=== PATIENT | male | born 1945 | race Caucasian/White ===

== ENCOUNTER 2019-10-16 11:14 | Inpatient (IN) | payer OTHER, MEDICAID ==
[~2019-10-16] VITALS: Ht 182.9 cm; Wt 65.0 kg
[2019-10-16 12:03] LABS: BASO # 0.1 x10^3/uL (0.0-0.2); BASO % 0 % (0-3); EOS # 0.1 x10^3/uL (0.0-0.7); EOS % 0 % (0-3); HEMATOCRIT 39.7 % (39.0-53.0); HEMOGLOBIN 13.8 g/dL (13.0-17.5); LYMPH # 1.2 x10^3/uL (1.0-4.8); LYMPH % 7 % (24-48); MEAN CORPUSCULAR HEMOGLOBIN 34 pg (25-35); MEAN CORPUSCULAR HGB CONC 35 g/dL (31-37); MEAN CORPUSCULAR VOLUME 98 fL (79-100); MONO # 1.6 x10^3/uL (0.0-1.1); MONO % 9 % (0-9); NEUT # 14.4 x10^3/uL (1.8-7.7); NEUT % 83 % (31-73); PLATELET COUNT 257 x10^3/uL (140-400); RED BLOOD COUNT 4.04 x10^6/uL (4.30-5.70); RED CELL DISTRIBUTION WIDTH 13.6 % (11.5-14.5); WHITE BLOOD COUNT 17.4 x10^3/uL (4.0-11.0)
[2019-10-16] MEDS ORDERED: ASPIRIN CHEWABLE 81 MG TABLET. PO ONE (12:15)
[2019-10-16 12:17] LABS: CALCIUM 8.5 mg/dL (8.5-10.1); CREATININE 1.1 mg/dL (0.7-1.3); GFR 65.8; POTASSIUM 3.5 mmol/L (3.5-5.1)
--- NOTE | 2019-10-16 12:17 | RAD ---
Chest PA and lateral 10/16/2019. Reason for exam: Chest pain. No consolidation or pleural fluid is seen. The left cardiac margin is slightly indistinct, and minimal lingular atelectasis or scarring could be present. Heart size is normal. IMPRESSION: No significant acute findings. Electronically signed by: Norbert Almanza Jr., MD (10/16/2019 12:14 PM) [id number]
[2019-10-16 12:22] LABS: ALBUMIN 3.5 g/dL (3.4-5.0); ALBUMIN/GLOBULIN RATIO 0.8 (1.0-1.7); MAGNESIUM 1.9 mg/dL (1.8-2.4); TOTAL BILIRUBIN 0.8 mg/dL (0.2-1.0); TOTAL PROTEIN 7.7 g/dL (6.4-8.2)
--- NOTE | 2019-10-16 12:29 | PHYS DOC ---
Past Medical History Smoking Status: Former Smoker (EYAD DOMINIQUE APRN) General Adult EDM: Chief Complaint: CHEST PAIN HPI: HPI: Patient is a 74 year old male who presents with complaints of approximately 2 hours ago a slow onset of epigastric pain that he describes as if he feels like he needs to belch, but cannot. Patient did not take anything at home prior to arrival for this discomfort. Patient rates this pressure feeling at a 7/10. Patient denies any radiation of this discomfort. Patient denies shortness of breath, diaphoresis, diarrhea. Patient states initially he felt nauseated but resolved prior to his ambulance transfer to the emergency department. Patient states he lives by himself in an assisted living facility called [facility]. Patient states he does not take any medications. Patient reports being a cigarette smoker of greater than 60 years, however he states he quit smoking July 2018. 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 Patient denies any recent fever chills or changes in vision. Patient denies any nasal congestion or sore throat. Patient denies any coughs or shortness of breath at this time. Patient denies any swelling of his extremities. Patient denies any abdominal pain or changes in his stool habits. Patient denies any problems urinating. Patient denies any back or joint pains or any skin rashes. Patient denies any weaknesses that have changed since his stroke recovery. Patient denies history of EtOH, is a nondrinker. Patient denies any swollen glands or any new depressions or anxieties. (EYAD DOMINIQUE APRN) Review of Systems: Review of Systems: Constitutional: Denies fever or chills. Eyes: Denies change in visual acuity. HENT: Denies nasal congestion or sore throat. Respiratory: Denies cough or shortness of breath. Cardiovascular: Complains of epigastric area chest pain without radiation, denies peripheral edema. GI: Complains of an initial onset of nausea that resolved prior to arrival. Denies abdominal pain, vomiting, bloody stools or diarrhea. : Denies dysuria. Musculoskeletal: Denies back pain or joint pain. Integument: Denies rash. Neurologic: Denies headache.denies focal weakness or sensory changes other than his left-sided weakness/deficits from a 14-year-old CVA.. Endocrine: Denies polyuria or polydipsia. Lymphatic: Denies swollen glands. Psychiatric: Denies depression or anxiety. (EYAD DOMINIQUE APRN) Heart Score: HEART Score for Chest Pain: HEART Score for Chest Pain Response (Comments) Value History Moderately Suspicious 1 ECG Nonspecific Repolarizatio 1 Age > 65 2 Risk Factors 1 or 2 Risk Factors 1 Troponin < Normal Limit 0 Total 5 Risk Factors: Risk Factors: DM, Current or recent (<one month) smoker, HTN, HLP, family history of CAD, obesity. Risk Scores: Score 0 - 3: 2.5% MACE over next 6 weeks - Discharge Home Score 4 - 6: 20.3% MACE over next 6 weeks - Admit for Clinical Observation Score 7 - 10: 72.7% MACE over next 6 weeks - Early Invasive Strategies (EYAD DOMINIQUE APRN) Family History: Family History: Patient denies any family history of medical problems to include heart disease. Patient states that his surviving family family members do smoke cigarettes. (EYAD DOMINIQUE APRN) Current Medications: Current Medications Medications (Trade) Dose Ordered Sig/Alexandra Start Time Stop Time Status Last Admin Dose Admin Aspirin (Aspirin Chewable) 324 mg 1X ONCE 10/16/19 12:15 10/16/19 12:16 (EYAD DOMINIQUE APRN) Allergies: Allergies: Allergies Coded Allergies Type Severity Reaction Last Updated Verified No Known Drug Allergies 10/16/19 No (EYAD DOMINIQUE APRN) Physical Exam: PE: Constitutional: Well developed, well nourished, no acute distress, non-toxic appearance. HENT: Normocephalic, atraumatic, bilateral external ears normal, oropharynx moist, no oral exudates, nose normal. Eyes: PERRLA, EOMI, conjunctiva normal, no discharge. Pupils 4 mm Neck: Normal range of motion, no tenderness, supple, no stridor. Cardiovascular:Heart rate regular rhythm, no murmur heart sounds S1-S2 no abnormalities noted per auscultation. Lungs & Thorax: Bilateral breath sounds clear to auscultation all lung riggs, no adventitious lung sounds noted per auscultation. Abdomen: Bowel sounds normal all 4 quadrants for auscultation, soft, no tenderness, no masses, no pulsatile masses. Skin: Warm, dry, no erythema, no rash. Back: No tenderness, no CVA tenderness. Extremities: No tenderness, no cyanosis, no clubbing, ROM intact right upper and lower extremities, left-sided upper and lower extremity weakness due to 14-year-old CVA residual deficits, no edema. Neurologic: Alert and oriented X 3, normal motor function, normal sensory function, no focal deficits noted. Psychologic: Affect normal, judgement normal, mood normal. (EYAD DOMINIQUE APRN) Current Patient Data: Labs: Laboratory Tests Test 10/16/19 11:28 White Blood Count 17.4 x10^3/uL (4.0-11.0) H Red Blood Count 4.04 x10^6/uL (4.30-5.70) L Hemoglobin 13.8 g/dL (13.0-17.5) Hematocrit 39.7 % (39.0-53.0) Mean Corpuscular Volume 98 fL (79-100) Mean Corpuscular Hemoglobin 34 pg (25-35) Mean Corpuscular Hemoglobin Concent 35 g/dL (31-37) Red Cell Distribution Width 13.6 % (11.5-14.5) Platelet Count 257 x10^3/uL (140-400) Neutrophils (%) (Auto) 83 % (31-73) H Lymphocytes (%) (Auto) 7 % (24-48) L Monocytes (%) (Auto) 9 % (0-9) Eosinophils (%) (Auto) 0 % (0-3) Basophils (%) (Auto) 0 % (0-3) Neutrophils # (Auto) 14.4 x10^3/uL (1.8-7.7) H Lymphocytes # (Auto) 1.2 x10^3/uL (1.0-4.8) Monocytes # (Auto) 1.6 x10^3/uL (0.0-1.1) H Eosinophils # (Auto) 0.1 x10^3/uL (0.0-0.7) Basophils # (Auto) 0.1 x10^3/uL (0.0-0.2) Platelet Estimate Pending Laboratory Tests 10/16/19 11:28 (EYAD DOMINIQUE APRN) EKG: EKG: EKG performed shortly after arrival at [address] Mcgraw. No STEMI noted. (EYAD DOMINIQUE APRN) Radiology/Procedures: Radiology/Procedures: PROCEDURE: CHEST PA & LATERAL Chest PA and lateral 10/16/2019. Reason for exam: Chest pain. No consolidation or pleural fluid is seen. The left cardiac margin is slightly indistinct, and minimal lingular atelectasis or scarring could be present. Heart size is normal. IMPRESSION: No significant acute findings. Electronically signed by: Fabien Almanza Jr., MD (10/16/2019 12:14 PM) [id number] DICTATED and SIGNED BY: FABIEN ALMANZA Jr, MD DATE: 10/16/19 1214 (EYAD DOMINIQUE APRN) Radiology/Procedures: PROCEDURE: ABDOMEN LTD ABDOMEN LTD History: Reason: RUQ pain, lipase of 29K. concern for gallstone pancreatitis / Spl. Instructions: / History: Comparison: None. Technique: Transabdominal ultrasound images are obtained of the right upper quadrant. Findings: Visualized pancreas is not well seen due to overlying bowel gas. Liver is normal in echogenicity. Right hepatic lobe measures 15 cm. Portal flow is hepatopedal. Mild gallbladder wall thickening measures 5 mm. No cholelithiasis. No pericholecystic fluid. Common bile duct not identified due to overlying structures. The right kidney measures 9.1 x 4.0 x 4.1 cm. No hydronephrosis. Normal caliber IVC. IMPRESSION: 1. Mild gallbladder wall thickening, may relate to inflammation. No cholelithiasis. If persistent clinical concern, HIDA scan can further evaluate for gallbladder function. 2. Common bile duct not well seen. Electronically signed by: Yasir Null DO (10/16/2019 4:25 PM) [facility] PROCEDURE: CHEST PA & LATERAL Chest PA and lateral 10/16/2019. Reason for exam: Chest pain. No consolidation or pleural fluid is seen. The left cardiac margin is slightly indistinct, and minimal lingular atelectasis or scarring could be present. Heart size is normal. IMPRESSION: No significant acute findings. Electronically signed by: Fabien Almanza Jr., MD (10/16/2019 12:14 PM) [id number] (EYAD MCGRAW DO) Course & Med Decision Making: Course & Med Decision Making Pertinent Labs and Imaging studies reviewed. (See chart for details) 74-year-old male patient arrives to the emergency department with epigastric discomfort started approximately 2 hours prior to arrival. Vital signs reviewed labs and imaging ordered. EKG was performed and reviewed by ED attending Dr. Mcgraw, no STEMI noted. Patient describes his discomfort as if he needs to belch but cannot. Patient reports this pain does not radiate. The pain was nonreproducible to palpation during exam. A GI cocktail was ordered due to his cardiac enzymes being negative, this medication resolved his chest discomfort. However the patient had a elevated white blood cell count with a left shift along with an elevated lipase. Patient does have a 14-year-old history of CVA with left-sided deficits. Patient lives in assisted living by himself at a facility called [facility]. Patient status reviewed with inpatient Dr. Enriquez, a sonogram of the abdomen to evaluate his pancreas and gallbladder was ordered, and patient was admitted inpatient to Dr. Enriquez to the [facility] floor. (EYAD DOMINIQUE APRN) Dragon Disclaimer: Dragon Disclaimer: This electronic medical record was generated, in whole or in part, using a voice recognition dictation system. (EYAD DOMINIQUE APRN) Departure Departure Impression: Primary Impression: Pancreatitis Qualified Codes: K85.90 - Acute pancreatitis without necrosis or infection, unspecified Additional Impressions: Chest pain Qualified Codes: R07.89 - Other chest pain Leukocytosis Qualified Codes: D72.829 - Elevated white blood cell count, unspecified Serum lipase elevation Disposition: ADMITTED INPATIENT Admitting Physician: VALERY (DR. Alfie CABRERA) (EYAD DOMINIQUE APRN) Condition: GUARDED Justicifation of Admission Dx: Justifications for Admission: Justification of Admission Dx: Yes Comments: LEUKOCYTOSIS, CHEST PAIN R/O ACS, ELEVATED SERUM LIPASE, PANCREATITIS. (EYAD DOMINIQUE APRN) Attending Signature Attending Signature I have reviewed the PA/ENVIRONMENTAL HEALTH OFFICER's note and plan of care. I was available for consultation as needed during the patient's visit in the emergency department. I agree with the clinical impression, plan, and disposition. (EYAD MCGRAW DO) EYAD DOMINIQUE APRN Oct 16, 2019 12:29 EYAD MCGRAW DO Oct 17, 2019 06:35
[2019-10-16] MEDS ORDERED: LIDO:MAALOX 1:1 20 ML SINGLE DOSE. SWSW ONE (13:00)
[2019-10-16 13:34] LABS: % BANDS 7 % (0-9); % LYMPHS 12 % (24-48); % MONOS 9 % (0-10); % SEGS 72 % (35-66); PLT ESTIMATE ADEQUATE (ADEQUATE)
[2019-10-16 13:41] LABS: BILIRUBIN,URINE NEGATIVE (NEG); CLARITY,URINE CLEAR; COLOR,URINE YELLOW; NITRITE,URINE NEGATIVE (NEG); PROTEIN,URINE NEGATIVE (NEG-TRACE)
[2019-10-16 13:51] LABS: SQUAMOUS EPITHELIAL CELL,UR FEW /LPF
[2019-10-16 13:53] LABS: BACTERIA,URINE 0 /HPF (0-FEW); RBC,URINE RARE /HPF (0-2); WBC,URINE 0 /HPF (0-4)
--- NOTE | 2019-10-16 14:36 | PDOC1 ---
History and Physical Date of Admission Date of Admission DATE: 10/16/19 TIME: 14:35 Identification/Chief Complaint Chief Complaint Epigastric abdominal pain Source Source: Patient History of Present Illness History of Present Illness Mr Parra is a 74yo M resident of [facility] w/ PMHx arthritis, HLD, CVA 2006 with left sided weakness who presents with complaints of epigastric abdominal pain starting 2 hours prior to ED visit. Rates this pressure feeling at a 7/10 as a "gas" feeling. Has nausea. Patient denies shortness of breath, diaphoresis, diarrhea. No chest pain. Patient denies any recent fever chills or changes in vision. Patient denies any nasal congestion or sore throat. No changes in his stool habits. Patient denies any problems urinating. Patient denies any back or joint pains or any skin rashes. Patient denies any weaknesses that have changed since his stroke recovery. Patient denies history of EtOH, is a nondrinker, quit smoking in 2019. WBC 17.4, Hb 13.8, Platelets 257, Na 140, K 3.5, BUN 12, Cr. 1.1, Troponin negative x 2, AST 436, ALT 352, and Lipase 29,956. EKG NSR, no stemi. CXR clear. RUQ US with gallbladder wall thickening. no visualization of CBD. Admitted for further treatment Past Medical History Cardiovascular: Hyperlipidemia CENTRAL NERVOUS SYSTEM: CVA Past Surgical History Past Surgical History: No pertinent history Family History Family History: Family History Unknown Social History Smoke: Quit ALCOHOL: none Drugs: None Current Medications Current Medications Current Medications Aspirin (Aspirin Chewable) 324 mg 1X ONCE PO Last administered on 10/16/19at 12:09; Start 10/16/19 at 12:15; Stop 10/16/19 at 12:16; Status DC Multi-Ingredient Mouthwash/Gargle (Gi Cocktail) 20 ml 1X ONCE SWSW Last administered on 10/16/19at 12:53; Start 10/16/19 at 13:00; Stop 10/16/19 at 13:01; Status DC Allergies Allergies: Coded Allergies: No Known Drug Allergies (Unverified , 10/16/19) ROS General: YES: Fatigue, Malaise; No: Chills, Night Sweats, Appetite, Other PSYCHOLOGICAL ROS: No: Anxiety, Behavioral Disorder, Concentration difficultie, Decreased libido, Depression, Disorientation, Hallucinations, Hostility, Irritablity, Memory difficulties, Mood Swings, Obsessive thoughts, Physical abuse, Sexual abuse, Sleep disturbances, Suicidal ideation, Other Eyes: No Blurry vision, No Decreased vision, No Double vision, No Dry eyes, No Excessive tearing, No Eye Pain, No Itchy Eyes, No Loss of vision, No Photophobia, No Scotomata, No Uses contacts, No Uses glasses, No Other HEENT: No: Heacaches, Visual Changes, Hearing change, Nasal congestion, Nasal d ischarge, Oral lesions, Sinus pain, Sore Throat, Epistaxis, Sneezing, Snoring, Tinnitus, Vertigo, Vocal changes, Other ALLERGY AND IMMUNOLOGY: No: Hives, Insect Bite Sensitivity, Itchy/Watery Eyes, Nasal Congestion, Post Nasal Drip, Seasonal Allergies, Other Hematological and Lymphatic: No: Bleeding Problems, Blood Clots, Blood Transfusions, Brusing, Night Sweats, Pallor, Swollen Lymph Nodes, Other ENDOCRINE: No: Breast Changes, Galactorrhea, Hair Pattern Changes, Hot Flashes, Malaise/lethargy, Mood Swings, Palpitations, Polydipsia/polyuria, Skin Changes, Temperature Intolerance, Unexpected Weight Changes, Other Breast: No New/Changing Breast Lumps, No Nipple changes, No Nipple discharge, No Other Respiratory: No: Cough, Hemoptysis, Orthopnea, Pleuritic Pain, Shortness of song ath, SOB with excertion, Sputum Changes, Stridor, Tachypnea, Wheezing, Other Cardiovascular: No Chest Pain, No Palpitations, No Orthopnea, No Paroxysmal Noc. Dyspnea, No Edema, No Lt Headedness, No Other Gastrointestinal: Yes Nausea, Yes Abdominal Pain; No Vomiting, No Diarrhea, No Constipation, No Melena, No Hematochezia, No Other Genitourinary: No Dysuria, No Frequency, No Incontinence, No Hematuria, No Retention, No Discharge, No Urgency, No Pain, No Flank Pain, No Other, No , No , No , No , No , No , No Musculoskeletal: Yes Gait Disturbance; No Joint Pain, No Joint Stiffness, No Joint Swelling, No Muscle Pain, No Muscular Weakness, No Pain In:, No Swelling In:, No Other Neurological: No Behavorial Changes, No Bowel/Bladder ControlChng, No Confusion, No Dizziness, No Gait Disturbance, No Headaches, No Impaired Coord/balance, No Memory Loss, No Numbness/Tingling, No Seizures, No Speech Problems, No Tremors, No Visual Changes, No Weakness, No Other Skin: No Dry Skin, No Eczema, No Hair Changes, No Lumps, No Mole Changes, No Mottling, No Nail Changes, No Pruritus, No Rash, No Skin Lesion Changes, No Other, No Acne Physical Exam General: Alert, Oriented X3, Cooperative, moderate distress HEENT: Atraumatic, PERRLA, EOMI, Mucous membr. moist/pink Lungs: Clear to auscultation, Normal air movement Heart: S1S2, RRR, no thrills, no rubs, no gallops, no murmurs Abdomen: Normal bowel sounds, Soft, No hepatosplenomegaly, No masses, Other (epigastric abdominal pain) Rectal Exam: not examined Extremities: No clubbing, No cyanosis, No edema, Normal pulses, No tenderness/swelling Skin: No rashes, No breakdown, No significant lesion Neuro: Normal speech, Normal tone, Cranial nerves 3-12 NL, Reflexes 2+, Other (left sided weakness) Psych/Mental Status: Mental status NL, Mood NL Vitals Vitals Vital Signs Date Time Temp Pulse Resp B/P (MAP) Pulse Ox O2 Delivery O2 Flow Rate FiO2 10/16/19 11:19 98.8 104 21 146/68 (94) 95 Room Air 98.8 Labs Labs Laboratory Tests Test 10/16/19 11:28 10/16/19 13:20 White Blood Count 17.4 x10^3/uL (4.0-11.0) Red Blood Count 4.04 x10^6/uL (4.30-5.70) Hemoglobin 13.8 g/dL (13.0-17.5) Hematocrit 39.7 % (39.0-53.0) Mean Corpuscular Volume 98 fL (79-100) Mean Corpuscular Hemoglobin 34 pg (25-35) Mean Corpuscular Hemoglobin Concent 35 g/dL (31-37) Red Cell Distribution Width 13.6 % (11.5-14.5) Platelet Count 257 x10^3/uL (140-400) Neutrophils (%) (Auto) 83 % (31-73) Lymphocytes (%) (Auto) 7 % (24-48) Monocytes (%) (Auto) 9 % (0-9) Eosinophils (%) (Auto) 0 % (0-3) Basophils (%) (Auto) 0 % (0-3) Neutrophils # (Auto) 14.4 x10^3/uL (1.8-7.7) Lymphocytes # (Auto) 1.2 x10^3/uL (1.0-4.8) Monocytes # (Auto) 1.6 x10^3/uL (0.0-1.1) Eosinophils # (Auto) 0.1 x10^3/uL (0.0-0.7) Basophils # (Auto) 0.1 x10^3/uL (0.0-0.2) Segmented Neutrophils % 72 % (35-66) Band Neutrophils % 7 % (0-9) Lymphocytes % 12 % (24-48) Monocytes % 9 % (0-10) Platelet Estimate Adequate (ADEQUATE) Activated Partial Thromboplast Time 21 SEC (24-38) Sodium Level 140 mmol/L (136-145) Potassium Level 3.5 mmol/L (3.5-5.1) Chloride Level 103 mmol/L (98-107) Carbon Dioxide Level 28 mmol/L (21-32) Anion Gap 9 (6-14) Blood Urea Nitrogen 12 mg/dL (8-26) Creatinine 1.1 mg/dL (0.7-1.3) Estimated GFR (Cockcroft-Gault) 65.8 BUN/Creatinine Ratio 11 (6-20) Glucose Level 121 mg/dL (70-99) Calcium Level 8.5 mg/dL (8.5-10.1) Magnesium Level 1.9 mg/dL (1.8-2.4) Total Bilirubin 0.8 mg/dL (0.2-1.0) Aspartate Amino Transf (AST/SGOT) 436 U/L (15-37) Alanine Aminotransferase (ALT/SGPT) 352 U/L (16-63) Alkaline Phosphatase 96 U/L (46-116) Creatine Kinase 60 U/L (39-308) Creatine Kinase MB (Mass) 0.9 ng/mL (0.0-3.6) Creatine Kinase MB Relative Index 1.5 % (0-4) Troponin I Quantitative < 0.017 ng/mL (0.000-0.055) BI-Sbs-C-Type Natriuretic Peptide 44 pg/mL (0-124) Total Protein 7.7 g/dL (6.4-8.2) Albumin 3.5 g/dL (3.4-5.0) Albumin/Globulin Ratio 0.8 (1.0-1.7) Lipase 37504 U/L (73-393) Urine Collection Type Unknown Urine Color Yellow Urine Clarity Clear Urine pH 7.0 (<5.0-8.0) Urine Specific [place] 1.015 (1.000-1.030) Urine Protein Negative mg/dL (NEG-TRACE) Urine Glucose (UA) Negative mg/dL (NEG) Urine Ketones (Stick) Negative mg/dL (NEG) Urine Blood Negative (NEG) Urine Nitrite Negative (NEG) Urine Bilirubin Negative (NEG) Urine Urobilinogen Dipstick 1.0 mg/dL (0.2 mg/dL) Urine Leukocyte Esterase Negative (NEG) Urine RBC Rare /HPF (0-2) Urine WBC 0 /HPF (0-4) Urine Squamous Epithelial Cells Few /LPF Urine Bacteria 0 /HPF (0-FEW) Urine Mucus Mod /LPF Laboratory Tests Test 10/16/19 11:28 10/16/19 13:20 White Blood Count 17.4 x10^3/uL (4.0-11.0) Red Blood Count 4.04 x10^6/uL (4.30-5.70) Hemoglobin 13.8 g/dL (13.0-17.5) Hematocrit 39.7 % (39.0-53.0) Mean Corpuscular Volume 98 fL (79-100) Mean Corpuscular Hemoglobin 34 pg (25-35) Mean Corpuscular Hemoglobin Concent 35 g/dL (31-37) Red Cell Distribution Width 13.6 % (11.5-14.5) Platelet Count 257 x10^3/uL (140-400) Neutrophils (%) (Auto) 83 % (31-73) Lymphocytes (%) (Auto) 7 % (24-48) Monocytes (%) (Auto) 9 % (0-9) Eosinophils (%) (Auto) 0 % (0-3) Basophils (%) (Auto) 0 % (0-3) Neutrophils # (Auto) 14.4 x10^3/uL (1.8-7.7) Lymphocytes # (Auto) 1.2 x10^3/uL (1.0-4.8) Monocytes # (Auto) 1.6 x10^3/uL (0.0-1.1) Eosinophils # (Auto) 0.1 x10^3/uL (0.0-0.7) Basophils # (Auto) 0.1 x10^3/uL (0.0-0.2) Segmented Neutrophils % 72 % (35-66) Band Neutrophils % 7 % (0-9) Lymphocytes % 12 % (24-48) Monocytes % 9 % (0-10) Platelet Estimate Adequate (ADEQUATE) Activated Partial Thromboplast Time 21 SEC (24-38) Sodium Level 140 mmol/L (136-145) Potassium Level 3.5 mmol/L (3.5-5.1) Chloride Level 103 mmol/L (98-107) Carbon Dioxide Level 28 mmol/L (21-32) Anion Gap 9 (6-14) Blood Urea Nitrogen 12 mg/dL (8-26) Creatinine 1.1 mg/dL (0.7-1.3) Estimated GFR (Cockcroft-Gault) 65.8 BUN/Creatinine Ratio 11 (6-20) Glucose Level 121 mg/dL (70-99) Calcium Level 8.5 mg/dL (8.5-10.1) Magnesium Level 1.9 mg/dL (1.8-2.4) Total Bilirubin 0.8 mg/dL (0.2-1.0) Aspartate Amino Transf (AST/SGOT) 436 U/L (15-37) Alanine Aminotransferase (ALT/SGPT) 352 U/L (16-63) Alkaline Phosphatase 96 U/L (46-116) Creatine Kinase 60 U/L (39-308) Creatine Kinase MB (Mass) 0.9 ng/mL (0.0-3.6) Creatine Kinase MB Relative Index 1.5 % (0-4) Troponin I Quantitative < 0.017 ng/mL (0.000-0.055) OL-Mdk-T-Type Natriuretic Peptide 44 pg/mL (0-124) Total Protein 7.7 g/dL (6.4-8.2) Albumin 3.5 g/dL (3.4-5.0) Albumin/Globulin Ratio 0.8 (1.0-1.7) Lipase 41343 U/L (73-393) Urine Collection Type Unknown Urine Color Yellow Urine Clarity Clear Urine pH 7.0 (<5.0-8.0) Urine Specific [place] 1.015 (1.000-1.030) Urine Protein Negative mg/dL (NEG-TRACE) Urine Glucose (UA) Negative mg/dL (NEG) Urine Ketones (Stick) Negative mg/dL (NEG) Urine Blood Negative (NEG) Urine Nitrite Negative (NEG) Urine Bilirubin Negative (NEG) Urine Urobilinogen Dipstick 1.0 mg/dL (0.2 mg/dL) Urine Leukocyte Esterase Negative (NEG) Urine RBC Rare /HPF (0-2) Urine WBC 0 /HPF (0-4) Urine Squamous Epithelial Cells Few /LPF Urine Bacteria 0 /HPF (0-FEW) Urine Mucus Mod /LPF Images Images CXR: No consolidation or pleural fluid is seen. The left cardiac margin is slightly indistinct, and minimal lingular atelectasis or scarring could be present. Heart size is normal. IMPRESSION: No significant acute findings. RUQ US: Visualized pancreas is not well seen due to overlying bowel gas. Liver is normal in echogenicity. Right hepatic lobe measures 15 cm. Portal flow is hepatopedal. Mild gallbladder wall thickening measures 5 mm. No cholelithiasis. No pericholecystic fluid. Common bile duct not identified due to overlying structures. The right kidney measures 9.1 x 4.0 x 4.1 cm. No hydronephrosis. Normal caliber IVC. IMPRESSION: 1. Mild gallbladder wall thickening, may relate to inflammation. No cholelithiasis. If persistent clinical concern, HIDA scan can further evaluate for gallbladder function. 2. Common bile duct not well seen. VTE Prophylaxis Ordered VTE Prophylaxis Devices: No VTE Pharmacological Prophylaxi: Yes Assessment/Plan Assessment/Plan A/P: Acute pancreatitis - almost certainly gallstone pancreatitis, will check triglycerides. no meds, no ETOH use. NPO, consult surgery and GI Epigastric abdominal pain - 2/2 above, cholecystitis may also be present. 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 - cont ASA, statin HLD - cont statin Transaminitis - likely 2/2 above, will trend LFTs Sepsis - likely 2/2 cholecystitis - will start empiric zosyn FEN - NPO PPX - lovenox DNR/DNI Dispo - inpatient for 2 midnights Justicifation of Admission Dx: Justifications for Admission: Justification of Admission Dx: Yes TIRSO CABRERA MD Oct 16, 2019 14:36
--- NOTE | 2019-10-16 16:28 | RAD ---
ABDOMEN LTD History: Reason: RUQ pain, lipase of 29K. concern for gallstone pancreatitis / Spl. Instructions: / History: Comparison: None. Technique: Transabdominal ultrasound images are obtained of the right upper quadrant. Findings: Visualized pancreas is not well seen due to overlying bowel gas. Liver is normal in echogenicity. Right hepatic lobe measures 15 cm. Portal flow is hepatopedal. Mild gallbladder wall thickening measures 5 mm. No cholelithiasis. No pericholecystic fluid. Common bile duct not identified due to overlying structures. The right kidney measures 9.1 x 4.0 x 4.1 cm. No hydronephrosis. Normal caliber IVC. IMPRESSION: 1. Mild gallbladder wall thickening, may relate to inflammation. No cholelithiasis. If persistent clinical concern, HIDA scan can further evaluate for gallbladder function. 2. Common bile duct not well seen. Electronically signed by: Yasir Null DO (10/16/2019 4:25 PM) [facility]
--- NOTE | 2019-10-16 18:33 | NUR ---
pt admitted to room 412 from ER. oriented to room and call light. pt up SBA w/ cane to bathroom.
[2019-10-16] MEDS ORDERED: ACETAMINOPHEN 650 MG SUPP.RECT. PR PRN (18:45)
[2019-10-16] MEDS ORDERED: ONDANSETRON PF 4 MG/2 ML VIAL. IV PRN (18:45)
[2019-10-16] MEDS ORDERED: ACETAMINOPHEN 325 MG TABLET. PO PRN (18:45)
[2019-10-16 19:00] VITALS: BP 148/69
[2019-10-16] MEDS: POTASSIUM CHLORIDE 10MEQ 100 ML IV SCH ×2 (20:18→21:33)
[2019-10-16] MEDS: POTASSIUM CL 20MEQ D5-0.45NACL 1,000 ML IV SCH (20:21)
[2019-10-16] MEDS ORDERED: MAGNESIUM SULFATE 1GM 100 ML IV ONE (21:30)
[2019-10-16] MEDS: ENOXAPARIN 40 MG/0.4 ML SYRINGE. SQ SCH (21:34)
[2019-10-16 23:00] VITALS: BP 148/72
[2019-10-16] MEDS: PIPERACILLIN/TAZOBACTAM 3.375 GM in IV NORMAL SALINE 50ML 50 ML IV SCH (23:55)
[2019-10-17 03:00] VITALS: BP 161/79
[2019-10-17] MEDS: POTASSIUM CL 20MEQ D5-0.45NACL 1,000 ML IV SCH ×2 (05:30→17:43)
[2019-10-17] MEDS: PIPERACILLIN/TAZOBACTAM 3.375 GM in IV NORMAL SALINE 50ML 50 ML IV SCH ×4 (05:47→23:59)
[2019-10-17 06:08] LABS: CHOLESTEROL/HDL RATIO 2.4
[2019-10-17 07:00] VITALS: BP 142/68
[2019-10-17] MEDS ORDERED: IOHEXOL 240 MG/ML 50ML VIAL. PO ONE (07:15)
[2019-10-17] MEDS ORDERED: CONTRAST GIVEN. MC PRN (07:15)
[2019-10-17] MEDS ORDERED: IOHEXOL 300 MG/ML 100ML VIAL. IV ONE (07:15)
[2019-10-17 08:39] LABS: ALBUMIN 3.3 g/dL (3.4-5.0); DIRECT BILIRUBIN 0.3 mg/dL (0.0-0.2); TOTAL BILIRUBIN 0.8 mg/dL (0.2-1.0); TOTAL PROTEIN 7.5 g/dL (6.4-8.2)
--- NOTE | 2019-10-17 09:18 | RAD ---
CT abdomen pelvis with contrast dated 10/17/2019. No comparison available. CLINICAL INDICATION: Abdominal pain. Pancreatitis. TECHNIQUE: Contiguous axial imaging of the abdomen and pelvis performed following the intravenous administration of 75 cc Isovue-370. One or more of the following individualized dose reduction techniques were utilized for this examination: 1. Automated exposure control 2. Adjustment of the mA and/or kV according to patient size 3. Use of iterative reconstruction technique. FINDINGS: Limited images of lung bases show patchy and linear opacity in the lower lobes, likely scar or atelectasis. Heart size is within normal limits. No pleural or pericardial effusion. There is circumferential wall thickening of the distal thoracic esophagus. Liver is of diffuse low density, compatible with fatty infiltration. No apparent mass. There is possible mild gallbladder wall thickening. No calcific stone. The biliary tree normal in caliber. No apparent intraductal filling defect. There is mild inflammatory stranding around the pancreas with trace amount of fluid along the retroperitoneal reflections. No circumscribed fluid collection to suggest pseudocyst. No apparent gland necrosis. Peripancreatic vasculature is patent. Mild to moderate narrowing of the celiac artery origin due to calcific plaquing. There is also moderate grade narrowing of the bilateral renal artery origin. Portal vein and SMV are patent. Adrenal glands and kidneys are unremarkable. No hydronephrosis. Spleen is normal in size. Partially opacified GI tract normal in caliber and contour. No focal bowel wall thickening. No inflammatory stranding in the mesentery. The appendix is normal in caliber. No ascites or lymphadenopathy. Images of pelvis show mildly distended urinary bladder. Mild diffuse bladder wall thickening. There is a 2 mm calcific density at the right UVJ on image 76. No hydroureter. Prostate gland is upper limits of normal in size. No free fluid or pelvic lymphadenopathy. Moderate size left inguinal hernia containing fat. There is also a suspected small inguinal hernia on the right. Bone windows show no acute findings. Mild multilevel spondylosis. IMPRESSION: 1. Findings consistent with acute pancreatitis. No evidence of gland necrosis or pseudocyst at this time. 2. Mild fatty infiltration of the liver with suspected mild gallbladder wall thickening. No apparent biliary ductal dilatation or choledocholithiasis. 3. Distended urinary bladder with mild diffuse bladder wall thickening, nonspecific. Consider acute or chronic cystitis. There is also a small calcific density near the right UVJ without evidence of right-sided hydronephrosis which could represent a small nonobstructing UVJ calculus or a nonspecific bladder wall calcification. 4. Bilateral inguinal hernia, left greater than right. Electronically signed by: Paco Milian MD (10/17/2019 9:15 AM) [id number]
--- NOTE | 2019-10-17 09:52 | PDOC ---
PROGRESS NOTES Chief Complaint Chief Complaint A/P: Acute pancreatitis - almost certainly gallstone pancreatitis, normal triglycerides. no meds, no ETOH use. NPO, consult surgery and GI Epigastric abdominal pain - 2/2 above, cholecystitis may also be present. 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 - cont ASA, statin HLD - cont statin Transaminitis - likely 2/2 above, will trend LFTs Sepsis - likely 2/2 cholecystitis - will start empiric zosyn Mild gallbladder wall thickening, no apparent biliary ductal dilatation or choledocholithiasis Distended urinary bladder with mild diffuse bladder wall thickening Right UVJ with small nonobstructing UVJ calculus or a nonspecific bladder wall calcification FEN - NPO PPX - lovenox DNR/DNI Dispo - inpatient for 2 midnights History of Present Illness History of Present Illness Mr Parra is a 74yo M resident of [facility] w/ PMHx arthritis, HLD, CVA 2006 with left sided weakness who presents with complaints of epigastric abdominal pain starting 2 hours prior to ED visit. Rates this pressure feeling at a 7/10 as a "gas" feeling. Has nausea. Patient denies shortness of breath, diaphoresis, diarrhea. No chest pain. Patient denies any recent fever chills or changes in vision. Patient denies any nasal congestion or sore throat. No changes in his stool habits. Patient denies any problems urinating. Patient denies any back or joint pains or any skin rashes. Patient denies any weaknesses that have changed since his stroke recovery. Patient denies history of EtOH, is a nondrinker, quit smoking in 2019. WBC 17.4, Hb 13.8, Platelets 257, Na 140, K 3.5, BUN 12, Cr. 1.1, Troponin negative x 2, AST 436, ALT 352, and Lipase 29,956. EKG NSR, no stemi. CXR clear. RUQ US with gallbladder wall thickening. no visualization of CBD. Admitted for further treatment. CT abdomen showed acute pancreatitis, suspected mild gallbladder wall thickening, no apparent biliary ductal dilatation or choledocholithiasis and distended urinary bladder with mild diffuse bladder wall thickening, right UVJ without evidence of right-sided hydronephrosis which could represent a small nonobstructing UVJ calculus or a nonspecific bladder wall calcification. Lipase improved to 4667. Afebrile. Still with diffuse abdominal pain and decreased appetite. Vitals Vitals Vital Signs Date Time Temp Pulse Resp B/P (MAP) Pulse Ox O2 Delivery O2 Flow Rate FiO2 10/17/19 07:00 97.7 88 18 142/68 (92) 92 Room Air 97.7 Physical Exam General: Alert, Oriented X3, Cooperative, moderate distress Abdomen: Normal bowel sounds, Soft, No hepatosplenomegaly, No masses, Other (epigastric abdominal pain) Extremities: No clubbing, No cyanosis, No edema, Normal pulses, No tenderness/swelling Skin: No rashes, No breakdown, No significant lesion Labs LABS Laboratory Tests Test 10/16/19 11:28 10/16/19 13:20 10/16/19 17:05 10/16/19 20:00 White Blood Count 17.4 x10^3/uL (4.0-11.0) Red Blood Count 4.04 x10^6/uL (4.30-5.70) Hemoglobin 13.8 g/dL (13.0-17.5) Hematocrit 39.7 % (39.0-53.0) Mean Corpuscular Volume 98 fL (79-100) Mean Corpuscular Hemoglobin 34 pg (25-35) Mean Corpuscular Hemoglobin Concent 35 g/dL (31-37) Red Cell Distribution Width 13.6 % (11.5-14.5) Platelet Count 257 x10^3/uL (140-400) Neutrophils (%) (Auto) 83 % (31-73) Lymphocytes (%) (Auto) 7 % (24-48) Monocytes (%) (Auto) 9 % (0-9) Eosinophils (%) (Auto) 0 % (0-3) Basophils (%) (Auto) 0 % (0-3) Neutrophils # (Auto) 14.4 x10^3/uL (1.8-7.7) Lymphocytes # (Auto) 1.2 x10^3/uL (1.0-4.8) Monocytes # (Auto) 1.6 x10^3/uL (0.0-1.1) Eosinophils # (Auto) 0.1 x10^3/uL (0.0-0.7) Basophils # (Auto) 0.1 x10^3/uL (0.0-0.2) Segmented Neutrophils % 72 % (35-66) Band Neutrophils % 7 % (0-9) Lymphocytes % 12 % (24-48) Monocytes % 9 % (0-10) Platelet Estimate Adequate (ADEQUATE) Activated Partial Thromboplast Time 21 SEC (24-38) Sodium Level 140 mmol/L (136-145) Potassium Level 3.5 mmol/L (3.5-5.1) Chloride Level 103 mmol/L (98-107) Carbon Dioxide Level 28 mmol/L (21-32) Anion Gap 9 (6-14) Blood Urea Nitrogen 12 mg/dL (8-26) Creatinine 1.1 mg/dL (0.7-1.3) Estimated GFR (Cockcroft-Gault) 65.8 BUN/Creatinine Ratio 11 (6-20) Glucose Level 121 mg/dL (70-99) Calcium Level 8.5 mg/dL (8.5-10.1) Magnesium Level 1.9 mg/dL (1.8-2.4) Total Bilirubin 0.8 mg/dL (0.2-1.0) Aspartate Amino Transf (AST/SGOT) 436 U/L (15-37) Alanine Aminotransferase (ALT/SGPT) 352 U/L (16-63) Alkaline Phosphatase 96 U/L (46-116) Creatine Kinase 60 U/L (39-308) Creatine Kinase MB (Mass) 0.9 ng/mL (0.0-3.6) Creatine Kinase MB Relative Index 1.5 % (0-4) Troponin I Quantitative < 0.017 ng/mL (0.000-0.055) < 0.017 ng/mL (0.000-0.055) < 0.017 ng/mL (0.000-0.055) AR-Jmr-S-Type Natriuretic Peptide 44 pg/mL (0-124) Total Protein 7.7 g/dL (6.4-8.2) Albumin 3.5 g/dL (3.4-5.0) Albumin/Globulin Ratio 0.8 (1.0-1.7) Lipase 04641 U/L (73-393) Urine Collection Type Unknown Urine Color Yellow Urine Clarity Clear Urine pH 7.0 (<5.0-8.0) Urine Specific [place] 1.015 (1.000-1.030) Urine Protein Negative mg/dL (NEG-TRACE) Urine Glucose (UA) Negative mg/dL (NEG) Urine Ketones (Stick) Negative mg/dL (NEG) Urine Blood Negative (NEG) Urine Nitrite Negative (NEG) Urine Bilirubin Negative (NEG) Urine Urobilinogen Dipstick 1.0 mg/dL (0.2 mg/dL) Urine Leukocyte Esterase Negative (NEG) Urine RBC Rare /HPF (0-2) Urine WBC 0 /HPF (0-4) Urine Squamous Epithelial Cells Few /LPF Urine Bacteria 0 /HPF (0-FEW) Urine Mucus Mod /LPF Test 10/17/19 04:00 Total Bilirubin 0.8 mg/dL (0.2-1.0) Direct Bilirubin 0.3 mg/dL (0.0-0.2) Aspartate Amino Transf (AST/SGOT) 190 U/L (15-37) Alanine Aminotransferase (ALT/SGPT) 296 U/L (16-63) Alkaline Phosphatase 83 U/L (46-116) Total Protein 7.5 g/dL (6.4-8.2) Albumin 3.3 g/dL (3.4-5.0) Triglycerides Level 41 mg/dL (0-150) Cholesterol Level 174 mg/dL (0-200) LDL Cholesterol, Calculated 93 mg/dL (0-100) VLDL Cholesterol, Calculated 8 mg/dL (0-40) Non-HDL Cholesterol Calculated 101 mg/dL (0-129) HDL Cholesterol 73 mg/dL (40-60) Cholesterol/HDL Ratio 2.4 Lipase 4667 U/L (73-393) Assessment and Plan Assessmemt and Plan Problems Medical Problems: (1) Chest pain Status: Acute (2) Leukocytosis Status: Acute (3) Pancreatitis Status: Acute (4) Serum lipase elevation Status: Acute Comment Review of Relevant I have reviewed the following items sarah (where applicable) has been applied. Labs Laboratory Tests Test 10/16/19 11:28 10/16/19 13:20 10/16/19 17:05 10/16/19 20:00 White Blood Count 17.4 x10^3/uL (4.0-11.0) Red Blood Count 4.04 x10^6/uL (4.30-5.70) Hemoglobin 13.8 g/dL (13.0-17.5) Hematocrit 39.7 % (39.0-53.0) Mean Corpuscular Volume 98 fL (79-100) Mean Corpuscular Hemoglobin 34 pg (25-35) Mean Corpuscular Hemoglobin Concent 35 g/dL (31-37) Red Cell Distribution Width 13.6 % (11.5-14.5) Platelet Count 257 x10^3/uL (140-400) Neutrophils (%) (Auto) 83 % (31-73) Lymphocytes (%) (Auto) 7 % (24-48) Monocytes (%) (Auto) 9 % (0-9) Eosinophils (%) (Auto) 0 % (0-3) Basophils (%) (Auto) 0 % (0-3) Neutrophils # (Auto) 14.4 x10^3/uL (1.8-7.7) Lymphocytes # (Auto) 1.2 x10^3/uL (1.0-4.8) Monocytes # (Auto) 1.6 x10^3/uL (0.0-1.1) Eosinophils # (Auto) 0.1 x10^3/uL (0.0-0.7) Basophils # (Auto) 0.1 x10^3/uL (0.0-0.2) Segmented Neutrophils % 72 % (35-66) Band Neutrophils % 7 % (0-9) Lymphocytes % 12 % (24-48) Monocytes % 9 % (0-10) Platelet Estimate Adequate (ADEQUATE) Activated Partial Thromboplast Time 21 SEC (24-38) Sodium Level 140 mmol/L (136-145) Potassium Level 3.5 mmol/L (3.5-5.1) Chloride Level 103 mmol/L (98-107) Carbon Dioxide Level 28 mmol/L (21-32) Anion Gap 9 (6-14) Blood Urea Nitrogen 12 mg/dL (8-26) Creatinine 1.1 mg/dL (0.7-1.3) Estimated GFR (Cockcroft-Gault) 65.8 BUN/Creatinine Ratio 11 (6-20) Glucose Level 121 mg/dL (70-99) Calcium Level 8.5 mg/dL (8.5-10.1) Magnesium Level 1.9 mg/dL (1.8-2.4) Total Bilirubin 0.8 mg/dL (0.2-1.0) Aspartate Amino Transf (AST/SGOT) 436 U/L (15-37) Alanine Aminotransferase (ALT/SGPT) 352 U/L (16-63) Alkaline Phosphatase 96 U/L (46-116) Creatine Kinase 60 U/L (39-308) Creatine Kinase MB (Mass) 0.9 ng/mL (0.0-3.6) Creatine Kinase MB Relative Index 1.5 % (0-4) Troponin I Quantitative < 0.017 ng/mL (0.000-0.055) < 0.017 ng/mL (0.000-0.055) < 0.017 ng/mL (0.000-0.055) VD-Zti-S-Type Natriuretic Peptide 44 pg/mL (0-124) Total Protein 7.7 g/dL (6.4-8.2) Albumin 3.5 g/dL (3.4-5.0) Albumin/Globulin Ratio 0.8 (1.0-1.7) Lipase 82305 U/L (73-393) Urine Collection Type Unknown Urine Color Yellow Urine Clarity Clear Urine pH 7.0 (<5.0-8.0) Urine Specific [place] 1.015 (1.000-1.030) Urine Protein Negative mg/dL (NEG-TRACE) Urine Glucose (UA) Negative mg/dL (NEG) Urine Ketones (Stick) Negative mg/dL (NEG) Urine Blood Negative (NEG) Urine Nitrite Negative (NEG) Urine Bilirubin Negative (NEG) Urine Urobilinogen Dipstick 1.0 mg/dL (0.2 mg/dL) Urine Leukocyte Esterase Negative (NEG) Urine RBC Rare /HPF (0-2) Urine WBC 0 /HPF (0-4) Urine Squamous Epithelial Cells Few /LPF Urine Bacteria 0 /HPF (0-FEW) Urine Mucus Mod /LPF Test 10/17/19 04:00 Total Bilirubin 0.8 mg/dL (0.2-1.0) Direct Bilirubin 0.3 mg/dL (0.0-0.2) Aspartate Amino Transf (AST/SGOT) 190 U/L (15-37) Alanine Aminotransferase (ALT/SGPT) 296 U/L (16-63) Alkaline Phosphatase 83 U/L (46-116) Total Protein 7.5 g/dL (6.4-8.2) Albumin 3.3 g/dL (3.4-5.0) Triglycerides Level 41 mg/dL (0-150) Cholesterol Level 174 mg/dL (0-200) LDL Cholesterol, Calculated 93 mg/dL (0-100) VLDL Cholesterol, Calculated 8 mg/dL (0-40) Non-HDL Cholesterol Calculated 101 mg/dL (0-129) HDL Cholesterol 73 mg/dL (40-60) Cholesterol/HDL Ratio 2.4 Lipase 4667 U/L (73-393) Laboratory Tests Test 10/16/19 11:28 10/16/19 13:20 10/16/19 17:05 10/16/19 20:00 White Blood Count 17.4 x10^3/uL (4.0-11.0) Red Blood Count 4.04 x10^6/uL (4.30-5.70) Hemoglobin 13.8 g/dL (13.0-17.5) Hematocrit 39.7 % (39.0-53.0) Mean Corpuscular Volume 98 fL (79-100) Mean Corpuscular Hemoglobin 34 pg (25-35) Mean Corpuscular Hemoglobin Concent 35 g/dL (31-37) Red Cell Distribution Width 13.6 % (11.5-14.5) Platelet Count 257 x10^3/uL (140-400) Neutrophils (%) (Auto) 83 % (31-73) Lymphocytes (%) (Auto) 7 % (24-48) Monocytes (%) (Auto) 9 % (0-9) Eosinophils (%) (Auto) 0 % (0-3) Basophils (%) (Auto) 0 % (0-3) Neutrophils # (Auto) 14.4 x10^3/uL (1.8-7.7) Lymphocytes # (Auto) 1.2 x10^3/uL (1.0-4.8) Monocytes # (Auto) 1.6 x10^3/uL (0.0-1.1) Eosinophils # (Auto) 0.1 x10^3/uL (0.0-0.7) Basophils # (Auto) 0.1 x10^3/uL (0.0-0.2) Segmented Neutrophils % 72 % (35-66) Band Neutrophils % 7 % (0-9) Lymphocytes % 12 % (24-48) Monocytes % 9 % (0-10) Platelet Estimate Adequate (ADEQUATE) Activated Partial Thromboplast Time 21 SEC (24-38) Sodium Level 140 mmol/L (136-145) Potassium Level 3.5 mmol/L (3.5-5.1) Chloride Level 103 mmol/L (98-107) Carbon Dioxide Level 28 mmol/L (21-32) Anion Gap 9 (6-14) Blood Urea Nitrogen 12 mg/dL (8-26) Creatinine 1.1 mg/dL (0.7-1.3) Estimated GFR (Cockcroft-Gault) 65.8 BUN/Creatinine Ratio 11 (6-20) Glucose Level 121 mg/dL (70-99) Calcium Level 8.5 mg/dL (8.5-10.1) Magnesium Level 1.9 mg/dL (1.8-2.4) Total Bilirubin 0.8 mg/dL (0.2-1.0) Aspartate Amino Transf (AST/SGOT) 436 U/L (15-37) Alanine Aminotransferase (ALT/SGPT) 352 U/L (16-63) Alkaline Phosphatase 96 U/L (46-116) Creatine Kinase 60 U/L (39-308) Creatine Kinase MB (Mass) 0.9 ng/mL (0.0-3.6) Creatine Kinase MB Relative Index 1.5 % (0-4) Troponin I Quantitative < 0.017 ng/mL (0.000-0.055) < 0.017 ng/mL (0.000-0.055) < 0.017 ng/mL (0.000-0.055) AP-Afk-M-Type Natriuretic Peptide 44 pg/mL (0-124) Total Protein 7.7 g/dL (6.4-8.2) Albumin 3.5 g/dL (3.4-5.0) Albumin/Globulin Ratio 0.8 (1.0-1.7) Lipase 03486 U/L (73-393) Urine Collection Type Unknown Urine Color Yellow Urine Clarity Clear Urine pH 7.0 (<5.0-8.0) Urine Specific [place] 1.015 (1.000-1.030) Urine Protein Negative mg/dL (NEG-TRACE) Urine Glucose (UA) Negative mg/dL (NEG) Urine Ketones (Stick) Negative mg/dL (NEG) Urine Blood Negative (NEG) Urine Nitrite Negative (NEG) Urine Bilirubin Negative (NEG) Urine Urobilinogen Dipstick 1.0 mg/dL (0.2 mg/dL) Urine Leukocyte Esterase Negative (NEG) Urine RBC Rare /HPF (0-2) Urine WBC 0 /HPF (0-4) Urine Squamous Epithelial Cells Few /LPF Urine Bacteria 0 /HPF (0-FEW) Urine Mucus Mod /LPF Test 10/17/19 04:00 Total Bilirubin 0.8 mg/dL (0.2-1.0) Direct Bilirubin 0.3 mg/dL (0.0-0.2) Aspartate Amino Transf (AST/SGOT) 190 U/L (15-37) Alanine Aminotransferase (ALT/SGPT) 296 U/L (16-63) Alkaline Phosphatase 83 U/L (46-116) Total Protein 7.5 g/dL (6.4-8.2) Albumin 3.3 g/dL (3.4-5.0) Triglycerides Level 41 mg/dL (0-150) Cholesterol Level 174 mg/dL (0-200) LDL Cholesterol, Calculated 93 mg/dL (0-100) VLDL Cholesterol, Calculated 8 mg/dL (0-40) Non-HDL Cholesterol Calculated 101 mg/dL (0-129) HDL Cholesterol 73 mg/dL (40-60) Cholesterol/HDL Ratio 2.4 Lipase 4667 U/L (73-393) Medications Current Medications Aspirin (Aspirin Chewable) 324 mg 1X ONCE PO Last administered on 10/16/19at 12:09; Start 10/16/19 at 12:15; Stop 10/16/19 at 12:16; Status DC Multi-Ingredient Mouthwash/Gargle (Gi Cocktail) 20 ml 1X ONCE SWSW Last administered on 10/16/19at 12:53; Start 10/16/19 at 13:00; Stop 10/16/19 at 13:01; Status DC Magnesium Sulfate/ Dextrose 100 ml @ 100 mls/hr 1X ONCE IV Last administered on 10/16/19at 21:35; Start 10/16/19 at 21:30; Stop 10/16/19 at 22:29; Status DC Potassium Chloride/Water 100 ml @ 100 mls/hr Q1H IV Last administered on 10/16/19at 21:33; Start 10/16/19 at 19:30; Stop 10/16/19 at 21:29; Status DC Potassium Chloride/Dextrose/ Sod Cl 1,000 ml @ 100 mls/hr Q10H IV Last administered on 10/16/19at 20:21; Start 10/16/19 at 19:30 Ondansetron HCl (Zofran) 4 mg PRN Q4HRS PRN IV NAUSEA/VOMITING; Start 10/16/19 at 18:45 Acetaminophen (Tylenol) 650 mg PRN Q4HRS PRN PO TEMP OVER 100.4F OR MILD PAIN; Start 10/16/19 at 18:45 Acetaminophen (Tylenol Supp) 650 mg PRN Q4HRS PRN CO TEMP OVER 100.4F OR MILD PAIN; Start 10/16/19 at 18:45 Enoxaparin Sodium (Lovenox 40mg Syringe) 40 mg Q24H SQ Last administered on 10/16/19at 21:34; Start 10/16/19 at 21:00 Piperacillin Sod/ Tazobactam Sod 3.375 gm/Sodium Chloride 50 ml @ 100 mls/hr Q 6HRS IV Last administered on 10/17/19at 05:47; Start 10/17/19 at 00:00 Iohexol (Omnipaque 300 Mg/ml) 75 ml 1X ONCE IV Last administered on 10/17/19at 07:15; Start 10/17/19 at 07:15; Stop 10/17/19 at 07:16; Status DC Iohexol (Omnipaque 240 Mg/ml) 50 ml 1X ONCE PO Last administered on 10/17/19at 07:33; Start 10/17/19 at 07:15; Stop 10/17/19 at 07:16; Status DC Info (CONTRAST GIVEN -- Rx MONITORING) 1 each PRN DAILY PRN MC SEE COMMENTS; Start 10/17/19 at 07:15; Stop 10/19/19 at 07:14 Vitals/I & O Vital Sign - Last 24 Hours 10/16/19 10/16/19 10/16/19 10/16/19 11:19 13:00 14:00 15:00 Temp 98.8 98.8 Pulse 104 94 96 100 Resp 21 B/P (MAP) 146/68 (94) 151/68 (95) 160/104 (122) 152/72 (98) Pulse Ox 95 92 92 92 O2 Delivery Room Air Room Air Room Air Room Air 10/16/19 10/16/19 10/16/19 10/16/19 16:00 17:00 19:00 20:00 Temp 98.9 98.9 Pulse 92 94 89 Resp 18 B/P (MAP) 137/68 (91) 152/70 (97) 148/69 (95) Pulse Ox 93 92 94 O2 Delivery Room Air Room Air Room Air Room Air 10/16/19 10/17/19 10/17/19 23:00 03:00 07:00 Temp 99.0 98.1 97.7 99.0 98.1 97.7 Pulse 91 89 88 Resp 18 18 18 B/P (MAP) 148/72 (97) 161/79 (106) 142/68 (92) Pulse Ox 91 92 92 O2 Delivery Room Air Room Air Room Air Intake and Output 10/16/19 10/16/19 10/17/19 15:00 23:00 07:00 Intake Total 200 ml Balance 200 ml Justicifation of Admission Dx: Justifications for Admission: Justification of Admission Dx: Yes TIRSO CABRERA MD Oct 17, 2019 09:52
[2019-10-17] MEDS ORDERED: TAMSULOSIN 0.4 MG CAP.ER.24H. PO ONE (10:00)
[2019-10-17 11:00] VITALS: BP 159/78
--- NOTE | 2019-10-17 12:01 | PDOC2 ---
CONSULT Date of Consult Date of Consult DATE: 10/17/19 TIME: 11:57 Reason for Consult Reason for Consult: pancreatitis Referring Physician Referring Physician: Dr. Moise Identification/Chief Complaint Chief Complaint epigastric abd pain Source Source: Chart review, Patient History of Present Illness Reason for Visit: 74 yo M with c/o epigastric abd pain prompting ER visit and admission. Pt reports feels better. No previous episodes. Still having some pain. Past Medical History Cardiovascular: Hyperlipidemia CENTRAL NERVOUS SYSTEM: CVA Past Surgical History Past Surgical History: No pertinent history Family History Family History: Family History Unknown Social History Quit ALCOHOL: none Drugs: None Current Problem List Problem List Problems Medical Problems: (1) Chest pain Status: Acute (2) Leukocytosis Status: Acute (3) Pancreatitis Status: Acute (4) Serum lipase elevation Status: Acute Current Medications Current Medications Current Medications Aspirin (Aspirin Chewable) 324 mg 1X ONCE PO Last administered on 10/16/19at 12:09; Start 10/16/19 at 12:15; Stop 10/16/19 at 12:16; Status DC Multi-Ingredient Mouthwash/Gargle (Gi Cocktail) 20 ml 1X ONCE SWSW Last administered on 10/16/19at 12:53; Start 10/16/19 at 13:00; Stop 10/16/19 at 13:01; Status DC Magnesium Sulfate/ Dextrose 100 ml @ 100 mls/hr 1X ONCE IV Last administered on 10/16/19at 21:35; Start 10/16/19 at 21:30; Stop 10/16/19 at 22:29; Status DC Potassium Chloride/Water 100 ml @ 100 mls/hr Q1H IV Last administered on 10/16/19at 21:33; Start 10/16/19 at 19:30; Stop 10/16/19 at 21:29; Status DC Potassium Chloride/Dextrose/ Sod Cl 1,000 ml @ 100 mls/hr Q10H IV Last administered on 10/16/19at 20:21; Start 10/16/19 at 19:30 Ondansetron HCl (Zofran) 4 mg PRN Q4HRS PRN IV NAUSEA/VOMITING; Start 10/16/19 at 18:45 Acetaminophen (Tylenol) 650 mg PRN Q4HRS PRN PO TEMP OVER 100.4F OR MILD PAIN; Start 10/16/19 at 18:45 Acetaminophen (Tylenol Supp) 650 mg PRN Q4HRS PRN MO TEMP OVER 100.4F OR MILD PAIN; Start 10/16/19 at 18:45 Enoxaparin Sodium (Lovenox 40mg Syringe) 40 mg Q24H SQ Last administered on 10/16/19at 21:34; Start 10/16/19 at 21:00 Piperacillin Sod/ Tazobactam Sod 3.375 gm/Sodium Chloride 50 ml @ 100 mls/hr Q6HRS IV Last administered on 10/17/19at 05:47; Start 10/17/19 at 00:00 Iohexol (Omnipaque 300 Mg/ml) 75 ml 1X ONCE IV Last administered on 10/17/19at 07:15; Start 10/17/19 at 07:15; Stop 10/17/19 at 07:16; Status DC Iohexol (Omnipaque 240 Mg/ml) 50 ml 1X ONCE PO Last administered on 10/17/19at 07:33; Start 10/17/19 at 07:15; Stop 10/17/19 at 07:16; Status DC Info (CONTRAST GIVEN -- Rx MONITORING) 1 each PRN DAILY PRN MC SEE COMMENTS; Start 10/17/19 at 07:15; Stop 10/19/19 at 07:14 Tamsulosin HCl (Flomax) 0.4 mg QHS PO ; Start 10/17/19 at 21:00 Tamsulosin HCl (Flomax) 0.4 mg 1X ONCE PO ; Start 10/17/19 at 10:00; Stop 10/17/19 at 10:01; Status DC Allergies Allergies: Coded Allergies: No Known Drug Allergies (Unverified , 10/16/19) ROS Gastrointestinal: Yes Abdominal Pain Physical Exam General: Alert, Oriented X3, Cooperative, No acute distress, Other (cachetic appearing) HEENT: Atraumatic, EOMI Lungs: Normal air movement Abdomen: Soft, Other (mild TTP epigastric) Extremities: No clubbing, No cyanosis Skin: No rashes, No breakdown Neuro: Normal speech, Sensation intact Psych/Mental Status: Mental status NL, Mood NL Vitals VITALS Vital Signs Date Time Temp Pulse Resp B/P (MAP) Pulse Ox O2 Delivery O2 Flow Rate FiO2 10/17/19 11:00 98.0 95 18 159/78 (105) 95 Room Air 98.0 Labs Labs Laboratory Tests Test 10/16/19 11:28 10/16/19 13:20 10/16/19 17:05 10/16/19 20:00 White Blood Count 17.4 x10^3/uL (4.0-11.0) Red Blood Count 4.04 x10^6/uL (4.30-5.70) Hemoglobin 13.8 g/dL (13.0-17.5) Hematocrit 39.7 % (39.0-53.0) Mean Corpuscular Volume 98 fL (79-100) Mean Corpuscular Hemoglobin 34 pg (25-35) Mean Corpuscular Hemoglobin Concent 35 g/dL (31-37) Red Cell Distribution Width 13.6 % (11.5-14.5) Platelet Count 257 x10^3/uL (140-400) Neutrophils (%) (Auto) 83 % (31-73) Lymphocytes (%) (Auto) 7 % (24-48) Monocytes (%) (Auto) 9 % (0-9) Eosinophils (%) (Auto) 0 % (0-3) Basophils (%) (Auto) 0 % (0-3) Neutrophils # (Auto) 14.4 x10^3/uL (1.8-7.7) Lymphocytes # (Auto) 1.2 x10^3/uL (1.0-4.8) Monocytes # (Auto) 1.6 x10^3/uL (0.0-1.1) Eosinophils # (Auto) 0.1 x10^3/uL (0.0-0.7) Basophils # (Auto) 0.1 x10^3/uL (0.0-0.2) Segmented Neutrophils % 72 % (35-66) Band Neutrophils % 7 % (0-9) Lymphocytes % 12 % (24-48) Monocytes % 9 % (0-10) Platelet Estimate Adequate (ADEQUATE) Activated Partial Thromboplast Time 21 SEC (24-38) Sodium Level 140 mmol/L (136-145) Potassium Level 3.5 mmol/L (3.5-5.1) Chloride Level 103 mmol/L (98-107) Carbon Dioxide Level 28 mmol/L (21-32) Anion Gap 9 (6-14) Blood Urea Nitrogen 12 mg/dL (8-26) Creatinine 1.1 mg/dL (0.7-1.3) Estimated GFR (Cockcroft-Gault) 65.8 BUN/Creatinine Ratio 11 (6-20) Glucose Level 121 mg/dL (70-99) Calcium Level 8.5 mg/dL (8.5-10.1) Magnesium Level 1.9 mg/dL (1.8-2.4) Total Bilirubin 0.8 mg/dL (0.2-1.0) Aspartate Amino Transf (AST/SGOT) 436 U/L (15-37) Alanine Aminotransferase (ALT/SGPT) 352 U/L (16-63) Alkaline Phosphatase 96 U/L (46-116) Creatine Kinase 60 U/L (39-308) Creatine Kinase MB (Mass) 0.9 ng/mL (0.0-3.6) Creatine Kinase MB Relative Index 1.5 % (0-4) Troponin I Quantitative < 0.017 ng/mL (0.000-0.055) < 0.017 ng/mL (0.000-0.055) < 0.017 ng/mL (0.000-0.055) [id number]-Type Natriuretic Peptide 44 pg/mL (0-124) Total Protein 7.7 g/dL (6.4-8.2) Albumin 3.5 g/dL (3.4-5.0) Albumin/Globulin Ratio 0.8 (1.0-1.7) Lipase 55696 U/L (73-393) Urine Collection Type Unknown Urine Color Yellow Urine Clarity Clear Urine pH 7.0 (<5.0-8.0) Urine Specific [place] 1.015 (1.000-1.030) Urine Protein Negative mg/dL (NEG-TRACE) Urine Glucose (UA) Negative mg/dL (NEG) Urine Ketones (Stick) Negative mg/dL (NEG) Urine Blood Negative (NEG) Urine Nitrite Negative (NEG) Urine Bilirubin Negative (NEG) Urine Urobilinogen Dipstick 1.0 mg/dL (0.2 mg/dL) Urine Leukocyte Esterase Negative (NEG) Urine RBC Rare /HPF (0-2) Urine WBC 0 /HPF (0-4) Urine Squamous Epithelial Cells Few /LPF Urine Bacteria 0 /HPF (0-FEW) Urine Mucus Mod /LPF Test 10/17/19 04:00 Total Bilirubin 0.8 mg/dL (0.2-1.0) Direct Bilirubin 0.3 mg/dL (0.0-0.2) Aspartate Amino Transf (AST/SGOT) 190 U/L (15-37) Alanine Aminotransferase (ALT/SGPT) 296 U/L (16-63) Alkaline Phosphatase 83 U/L (46-116) Total Protein 7.5 g/dL (6.4-8.2) Albumin 3.3 g/dL (3.4-5.0) Triglycerides Level 41 mg/dL (0-150) Cholesterol Level 174 mg/dL (0-200) LDL Cholesterol, Calculated 93 mg/dL (0-100) VLDL Cholesterol, Calculated 8 mg/dL (0-40) Non-HDL Cholesterol Calculated 101 mg/dL (0-129) HDL Cholesterol 73 mg/dL (40-60) Cholesterol/HDL Ratio 2.4 Lipase 4667 U/L (73-393) Laboratory Tests Test 10/16/19 13:20 10/16/19 17:05 10/16/19 20:00 10/17/19 04:00 Urine Collection Type Unknown Urine Color Yellow Urine Clarity Clear Urine pH 7.0 (<5.0-8.0) Urine Specific [place] 1.015 (1.000-1.030) Urine Protein Negative mg/dL (NEG-TRACE) Urine Glucose (UA) Negative mg/dL (NEG) Urine Ketones (Stick) Negative mg/dL (NEG) Urine Blood Negative (NEG) Urine Nitrite Negative (NEG) Urine Bilirubin Negative (NEG) Urine Urobilinogen Dipstick 1.0 mg/dL (0.2 mg/dL) Urine Leukocyte Esterase Negative (NEG) Urine RBC Rare /HPF (0-2) Urine WBC 0 /HPF (0-4) Urine Squamous Epithelial Cells Few /LPF Urine Bacteria 0 /HPF (0-FEW) Urine Mucus Mod /LPF Troponin I Quantitative < 0.017 ng/mL (0.000-0.055) < 0.017 ng/mL (0.000-0.055) Total Bilirubin 0.8 mg/dL (0.2-1.0) Direct Bilirubin 0.3 mg/dL (0.0-0.2) Aspartate Amino Transf (AST/SGOT) 190 U/L (15-37) Alanine Aminotransferase (ALT/SGPT) 296 U/L (16-63) Alkaline Phosphatase 83 U/L (46-116) Total Protein 7.5 g/dL (6.4-8.2) Albumin 3.3 g/dL (3.4-5.0) Triglycerides Level 41 mg/dL (0-150) Cholesterol Level 174 mg/dL (0-200) LDL Cholesterol, Calculated 93 mg/dL (0-100) VLDL Cholesterol, Calculated 8 mg/dL (0-40) Non-HDL Cholesterol Calculated 101 mg/dL (0-129) HDL Cholesterol 73 mg/dL (40-60) Cholesterol/HDL Ratio 2.4 Lipase 4667 U/L (73-393) Images Images CT with pancreatitis, esophageal thickening, no obvious gallstones Assessment/Plan Assessment/Plan pancreatitis, favor microlithiasis will ask GI to evaluate pancreatitis and esophageal thickening. eventual cholecystectomy pending resolution of pancreatitis Thanks for consult! JOEY GUTIERREZ MD Oct 17, 2019 12:01
--- NOTE | 2019-10-17 12:55 | PDOC2 ---
GI CONSULT Reason For Consult: Pancreatitis HPI: HPI: 74 y/o male presented to ER with upper abdominal pain. Subsequent evaluation disclosed elevated lipase c/w pancreatitis. Transaminasaes were also elevated, though AP and bilirubin were normal. LFT's and lipase have improved and he has only minimal pain currently. No gallstones on imaging. Did drink heavily for many years, but quit some time back--has no prior h/o pancreatitis. No necrosis on CT. Denies ever heartburn to any degree. No dysphagia, PUD, liver history. Currently not smoking or using any alcohol. Denies diarrhea, constipation, overt GI bleeding. No prior endoscopies. GIFH positive for esophageal cancer in father. PMH: PMH: HLP, right CVA. FH: Family History: Other (otherwise non-contributory) Social History: Smoke: Quit ALCOHOL: none (heavy in the remote past) Drugs: None ROS: GEN: Denies fevers, chills, sweats HEENT: Denies blurred vision, sore throat CV: Denies chest pain RESP: Denies shortness of air, cough GI: Per HPI : Denies hematuria, dysuria ENDO: Denies weight changes NEURO: Denies confusion, dizziness MSK: Denies weakness, joint pain/swelling SKIN: Denies jaundice, pruritus Vitals: Vitals: Vital Signs Date Time Temp Pulse Resp B/P (MAP) Pulse Ox O2 Delivery O2 Flow Rate FiO2 10/17/19 11:00 98.0 95 18 159/78 (105) 95 Room Air 98.0 Labs: Labs: Laboratory Tests Test 10/16/19 13:20 10/16/19 17:05 10/16/19 20:00 10/17/19 04:00 Urine Collection Type Unknown Urine Color Yellow Urine Clarity Clear Urine pH 7.0 (<5.0-8.0) Urine Specific [place] 1.015 (1.000-1.030) Urine Protein Negative mg/dL (NEG-TRACE) Urine Glucose (UA) Negative mg/dL (NEG) Urine Ketones (Stick) Negative mg/dL (NEG) Urine Blood Negative (NEG) Urine Nitrite Negative (NEG) Urine Bilirubin Negative (NEG) Urine Urobilinogen Dipstick 1.0 mg/dL (0.2 mg/dL) Urine Leukocyte Esterase Negative (NEG) Urine RBC Rare /HPF (0-2) Urine WBC 0 /HPF (0-4) Urine Squamous Epithelial Cells Few /LPF Urine Bacteria 0 /HPF (0-FEW) Urine Mucus Mod /LPF Troponin I Quantitative < 0.017 ng/mL (0.000-0.055) < 0.017 ng/mL (0.000-0.055) Total Bilirubin 0.8 mg/dL (0.2-1.0) Direct Bilirubin 0.3 mg/dL (0.0-0.2) Aspartate Amino Transf (AST/SGOT) 190 U/L (15-37) Alanine Aminotransferase (ALT/SGPT) 296 U/L (16-63) Alkaline Phosphatase 83 U/L (46-116) Total Protein 7.5 g/dL (6.4-8.2) Albumin 3.3 g/dL (3.4-5.0) Triglycerides Level 41 mg/dL (0-150) Cholesterol Level 174 mg/dL (0-200) LDL Cholesterol, Calculated 93 mg/dL (0-100) VLDL Cholesterol, Calculated 8 mg/dL (0-40) Non-HDL Cholesterol Calculated 101 mg/dL (0-129) HDL Cholesterol 73 mg/dL (40-60) Cholesterol/HDL Ratio 2.4 Lipase 4667 U/L (73-393) Allergies: Coded Allergies: No Known Drug Allergies (Unverified , 10/16/19) Medications: Current Medications Medications (Trade) Dose Ordered Sig/Alexandra Route PRN Reason Start Time Stop Time Status Last Admin Dose Admin Multi-Ingredient Mouthwash/Gargle (Gi Cocktail) 20 ml 1X ONCE SWSW 10/16/19 13:00 10/16/19 13:01 DC 10/16/19 12:53 Magnesium Sulfate/ Dextrose 100 ml @ 100 mls/hr 1X ONCE IV 10/16/19 21:30 10/16/19 22:29 DC 10/16/19 21:35 Potassium Chloride/Water 100 ml @ 100 mls/hr Q1H IV 10/16/19 19:30 10/16/19 21:29 DC 10/16/19 21:33 Potassium Chloride/Dextrose/ Sod Cl 1,000 ml @ 100 mls/hr Q10H IV 10/16/19 19:30 10/16/19 20:21 Enoxaparin Sodium (Lovenox 40mg Syringe) 40 mg Q24H SQ 10/16/19 21:00 10/16/19 21:34 Piperacillin Sod/ Tazobactam Sod 3.375 gm/Sodium Chloride 50 ml @ 100 mls/hr Q6HRS IV 10/17/19 00:00 10/17/19 12:00 Iohexol (Omnipaque 300 Mg/ml) 75 ml 1X ONCE IV 10/17/19 07:15 10/17/19 07:16 DC 10/17/19 07:15 Iohexol (Omnipaque 240 Mg/ml) 50 ml 1X ONCE PO 10/17/19 07:15 10/17/19 07:16 DC 10/17/19 07:33 Tamsulosin HCl (Flomax) 0.4 mg 1X ONCE PO 10/17/19 10:00 10/17/19 10:01 DC 10/17/19 12:00 Imaging: Imaging: CT reviewed. "Thickened esophagus" looks like hiatal hernia to me (and no symptoms). PE: GEN: NAD HEENT: Atraumatic, PERRLA LUNGS: CTAB HEART: RRR, no murmurs ABD: NABS, S/ND/mildly tender in epigastrium, no masses EXTREMITY: No edema SKIN: No rashes, no jaundice NEURO/PSYCH: A & O 3, left hemiparesis A/P: A/P: IMP: Pancreatitis. Numbers suggest biliary in origin though no stones seen. Agree microlithiasis possible. Remote alcohol abuse, but would not expect LFT's abnormal if alcohol the cause unless chronic pancreatitis and stricture of CBD secondary to this. Suspect hiatal hernia.\\ REC: Would pursue cholecystectomy. Don't feel EGD needed at this point. Could ultimately consider screening colonoscopy. Thanks. EYAD MESA MD Oct 17, 2019 12:55
[2019-10-17 15:00] VITALS: BP 149/78
[2019-10-17 19:00] VITALS: BP 132/60
[2019-10-17] MEDS: ENOXAPARIN 40 MG/0.4 ML SYRINGE. SQ SCH (20:39)
[2019-10-17] MEDS: TAMSULOSIN 0.4 MG CAP.ER.24H. PO SCH (20:39)
[2019-10-17 23:00] VITALS: BP 141/65
[2019-10-18] MEDS: POTASSIUM CL 20MEQ D5-0.45NACL 1,000 ML IV SCH ×3 (01:30→21:30)
[2019-10-18 03:00] VITALS: BP 125/56
[2019-10-18 05:14] LABS: BASO % 0 % (0-3); EOS % 0 % (0-3); HEMATOCRIT 36.5 % (39.0-53.0); HEMOGLOBIN 12.3 g/dL (13.0-17.5); LYMPH # 1.1 x10^3/uL (1.0-4.8); LYMPH % 8 % (24-48); MEAN CORPUSCULAR HEMOGLOBIN 33 pg (25-35); MEAN CORPUSCULAR HGB CONC 34 g/dL (31-37); MEAN CORPUSCULAR VOLUME 99 fL (79-100); MONO # 1.3 x10^3/uL (0.0-1.1); MONO % 9 % (0-9); NEUT # 11.1 x10^3/uL (1.8-7.7); NEUT % 82 % (31-73); PLATELET COUNT 206 x10^3/uL (140-400); RED BLOOD COUNT 3.69 x10^6/uL (4.30-5.70); RED CELL DISTRIBUTION WIDTH 13.8 % (11.5-14.5); WHITE BLOOD COUNT 13.4 x10^3/uL (4.0-11.0)
[2019-10-18] MEDS: PIPERACILLIN/TAZOBACTAM 3.375 GM in IV NORMAL SALINE 50ML 50 ML IV SCH ×3 (05:33→17:21)
[2019-10-18 05:58] LABS: ALBUMIN 2.8 g/dL (3.4-5.0); ALBUMIN/GLOBULIN RATIO 0.7 (1.0-1.7); CALCIUM 7.9 mg/dL (8.5-10.1); GFR 73.5; POTASSIUM 3.3 mmol/L (3.5-5.1); TOTAL BILIRUBIN 1.3 mg/dL (0.2-1.0); TOTAL PROTEIN 6.7 g/dL (6.4-8.2)
[2019-10-18 07:00] VITALS: BP 143/69
--- NOTE | 2019-10-18 08:27 | PDOC ---
PROGRESS NOTES Chief Complaint Chief Complaint IMPRESSION Acute pancreatitis - // gallstone pancreatitis, normal triglycerides. no meds, no ETOH use. NPO, consult surgery and GI Epigastric abdominal pain - 2/2 above, cholecystitis may also be present. 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 Underlying mass not excluded. FEN - NPO PPX - lovenox DNR/DNI Dispo - inpatient for 2 midnights gi consulted pursue cholecystectomy. Don't feel EGD needed at this point. Could consider screening colonoscopy. COVID-19 SCREEN 27 min pt exam, chart review, > 50% of time spent with exam, chart review, pt care coordination History of Present Illness History of Present Illness Mr Parra is a 74yo M resident of [facility] w/ PMHx arthritis, HLD, CVA 2006 with left sided weakness who presents with complaints of epigastric abdominal pain starting 2 hours prior to ED visit. Rates this pressure feeling at a 7/10 as a "gas" feeling. Has nausea. Patient denies shortness of breath, diaphoresis, diarrhea. No chest pain. Patient denies any recent fever chills or changes in vision. Patient denies any nasal congestion or sore throat. No changes in his stool habits. Patient denies any problems urinating. Patient denies any back or joint pains or any skin rashes. Patient denies any weaknesses that have changed since his stroke recovery. Patient denies history of EtOH, is a nondrinker, quit smoking in 2019. WBC 17.4, Hb 13.8, Platelets 257, Na 140, K 3.5, BUN 12, Cr. 1.1, Troponin negative x 2, AST 436, ALT 352, and Lipase 29,956. EKG NSR, no stemi. CXR clear. RUQ US with gallbladder wall thickening. no visualization of CBD. Admitted for further treatment. CT abdomen showed acute pancreatitis, suspected mild gallbladder wall thickening, no apparent biliary ductal dilatation or choledocholithiasis and distended urinary bladder with mild diffuse bladder wall thickening, right UVJ without evidence of right-sided hydronephrosis which could represent a small nonobstructing UVJ calculus or a nonspecific bladder wall calcification. Lipase improved to 4667. Afebrile. Still with diffuse abdominal pain and decreased appetite. Vitals Vitals Vital Signs Date Time Temp Pulse Resp B/P (MAP) Pulse Ox O2 Delivery O2 Flow Rate FiO2 10/18/19 03:00 99.5 89 18 125/56 (79) 93 Room Air 99.5 Physical Exam General: Alert, Oriented X3, Cooperative, No acute distress, Other (cachetic appearing) Abdomen: Soft, Other (mild TTP epigastric) Extremities: No clubbing, No cyanosis Skin: No rashes, No breakdown Labs LABS ADDENDUM Addendum: Circumferential wall thickening of the thoracic esophagus is nonspecific and could be related to acute or chronic esophagitis. Underlying mass not excluded. Correlate clinically. Electronically signed by: Paco iMlian MD (10/17/2019 10:20 AM) [id number] DICTATED AND SIGNED BY: PACO MILIAN MD DATE: 10/17/19 1020 CC: JOYCE GRIDER MD; JOEY GUTIERREZ MD; TIRSO CABRERA MD; PACO MESA MD ~ CT abdomen pelvis with contrast dated 10/17/2019. No comparison available. CLINICAL INDICATION: Abdominal pain. Pancreatitis. TECHNIQUE: Contiguous axial imaging of the abdomen and pelvis performed following the intravenous administration of 75 cc Isovue-370. One or more of the following individualized dose reduction techniques were utilized for this examination: 1. Automated exposure control 2. Adjustment of the mA and/or kV according to patient size 3. Use of iterative reconstruction technique. FINDINGS: Limited images of lung bases show patchy and linear opacity in the lower lobes, likely scar or atelectasis. Heart size is within normal limits. No pleural or pericardial effusion. There is circumferential wall thickening of the distal thoracic esophagus. Liver is of diffuse low density, compatible with fatty infiltration. No apparent mass. There is possible mild gallbladder wall thickening. No calcific stone. The biliary tree normal in caliber. No apparent intraductal filling defect. There is mild inflammatory stranding around the pancreas with trace amount of fluid along the retroperitoneal reflections. No circumscribed fluid collection to suggest pseudocyst. No apparent gland necrosis. Peripancreatic vasculature is patent. Mild to moderate narrowing of the celiac artery origin due to calcific plaquing. There is also moderate grade narrowing of the bilateral renal artery origin. Portal vein and SMV are patent. Adrenal glands and kidneys are unremarkable. No hydronephrosis. Spleen is normal in size. Partially opacified GI tract normal in caliber and contour. No focal bowel wall thickening. No inflammatory stranding in the mesentery. The appendix is normal in caliber. No ascites or lymphadenopathy. Images of pelvis show mildly distended urinary bladder. Mild diffuse bladder wall thickening. There is a 2 mm calcific density at the right UVJ on image 76. No hydroureter. Prostate gland is upper limits of normal in size. No free fluid or pelvic lymphadenopathy. Moderate size left inguinal hernia containing fat. There is also a suspected small inguinal hernia on the right. Bone windows show no acute findings. Mild multilevel spondylosis. IMPRESSION: 1. Findings consistent with acute pancreatitis. No evidence of gland necrosis or pseudocyst at this time. 2. Mild fatty infiltration of the liver with suspected mild gallbladder wall thickening. No apparent biliary ductal dilatation or choledocholithiasis. 3. Distended urinary bladder with mild diffuse bladder wall thickening, nonspecific. Consider acute or chronic cystitis. There is also a small calcific density near the right UVJ without evidence of right-sided hydronephrosis which could represent a small nonobstructing UVJ calculus or a nonspecific bladder wall calcification. 4. Bilateral inguinal hernia, left greater than right. Electronically signed by: Paco Milian MD (10/17/2019 9:15 AM) [id number] Laboratory Tests Test 10/18/19 03:10 White Blood Count 13.4 x10^3/uL (4.0-11.0) Red Blood Count 3.69 x10^6/uL (4.30-5.70) Hemoglobin 12.3 g/dL (13.0-17.5) Hematocrit 36.5 % (39.0-53.0) Mean Corpuscular Volume 99 fL (79-100) Mean Corpuscular Hemoglobin 33 pg (25-35) Mean Corpuscular Hemoglobin Concent 34 g/dL (31-37) Red Cell Distribution Width 13.8 % (11.5-14.5) Platelet Count 206 x10^3/uL (140-400) Neutrophils (%) (Auto) 82 % (31-73) Lymphocytes (%) (Auto) 8 % (24-48) Monocytes (%) (Auto) 9 % (0-9) Eosinophils (%) (Auto) 0 % (0-3) Basophils (%) (Auto) 0 % (0-3) Neutrophils # (Auto) 11.1 x10^3/uL (1.8-7.7) Lymphocytes # (Auto) 1.1 x10^3/uL (1.0-4.8) Monocytes # (Auto) 1.3 x10^3/uL (0.0-1.1) Eosinophils # (Auto) 0.0 x10^3/uL (0.0-0.7) Basophils # (Auto) 0.0 x10^3/uL (0.0-0.2) Sodium Level 136 mmol/L (136-145) Potassium Level 3.3 mmol/L (3.5-5.1) Chloride Level 101 mmol/L (98-107) Carbon Dioxide Level 25 mmol/L (21-32) Anion Gap 10 (6-14) Blood Urea Nitrogen 11 mg/dL (8-26) Creatinine 1.0 mg/dL (0.7-1.3) Estimated GFR (Cockcroft-Gault) 73.5 BUN/Creatinine Ratio 11 (6-20) Glucose Level 118 mg/dL (70-99) Calcium Level 7.9 mg/dL (8.5-10.1) Total Bilirubin 1.3 mg/dL (0.2-1.0) Aspartate Amino Transf (AST/SGOT) 52 U/L (15-37) Alanine Aminotransferase (ALT/SGPT) 151 U/L (16-63) Alkaline Phosphatase 80 U/L (46-116) Total Protein 6.7 g/dL (6.4-8.2) Albumin 2.8 g/dL (3.4-5.0) Albumin/Globulin Ratio 0.7 (1.0-1.7) Lipase 600 U/L (73-393) Assessment and Plan Assessmemt and Plan Problems Medical Problems: (1) Chest pain Status: Acute (2) Leukocytosis Status: Acute (3) Pancreatitis Status: Acute (4) Serum lipase elevation Status: Acute Comment Review of Relevant I have reviewed the following items sarah (where applicable) has been applied. Labs Laboratory Tests Test 10/16/19 11:28 10/16/19 13:20 10/16/19 17:05 10/16/19 20:00 White Blood Count 17.4 x10^3/uL (4.0-11.0) Red Blood Count 4.04 x10^6/uL (4.30-5.70) Hemoglobin 13.8 g/dL (13.0-17.5) Hematocrit 39.7 % (39.0-53.0) Mean Corpuscular Volume 98 fL (79-100) Mean Corpuscular Hemoglobin 34 pg (25-35) Mean Corpuscular Hemoglobin Concent 35 g/dL (31-37) Red Cell Distribution Width 13.6 % (11.5-14.5) Platelet Count 257 x10^3/uL (140-400) Neutrophils (%) (Auto) 83 % (31-73) Lymphocytes (%) (Auto) 7 % (24-48) Monocytes (%) (Auto) 9 % (0-9) Eosinophils (%) (Auto) 0 % (0-3) Basophils (%) (Auto) 0 % (0-3) Neutrophils # (Auto) 14.4 x10^3/uL (1.8-7.7) Lymphocytes # (Auto) 1.2 x10^3/uL (1.0-4.8) Monocytes # (Auto) 1.6 x10^3/uL (0.0-1.1) Eosinophils # (Auto) 0.1 x10^3/uL (0.0-0.7) Basophils # (Auto) 0.1 x10^3/uL (0.0-0.2) Segmented Neutrophils % 72 % (35-66) Band Neutrophils % 7 % (0-9) Lymphocytes % 12 % (24-48) Monocytes % 9 % (0-10) Platelet Estimate Adequate (ADEQUATE) Activated Partial Thromboplast Time 21 SEC (24-38) Sodium Level 140 mmol/L (136-145) Potassium Level 3.5 mmol/L (3.5-5.1) Chloride Level 103 mmol/L (98-107) Carbon Dioxide Level 28 mmol/L (21-32) Anion Gap 9 (6-14) Blood Urea Nitrogen 12 mg/dL (8-26) Creatinine 1.1 mg/dL (0.7-1.3) Estimated GFR (Cockcroft-Gault) 65.8 BUN/Creatinine Ratio 11 (6-20) Glucose Level 121 mg/dL (70-99) Calcium Level 8.5 mg/dL (8.5-10.1) Magnesium Level 1.9 mg/dL (1.8-2.4) Total Bilirubin 0.8 mg/dL (0.2-1.0) Aspartate Amino Transf (AST/SGOT) 436 U/L (15-37) Alanine Aminotransferase (ALT/SGPT) 352 U/L (16-63) Alkaline Phosphatase 96 U/L (46-116) Creatine Kinase 60 U/L (39-308) Creatine Kinase MB (Mass) 0.9 ng/mL (0.0-3.6) Creatine Kinase MB Relative Index 1.5 % (0-4) Troponin I Quantitative < 0.017 ng/mL (0.000-0.055) < 0.017 ng/mL (0.000-0.055) < 0.017 ng/mL (0.000-0.055) XQ-Isf-T-Type Natriuretic Peptide 44 pg/mL (0-124) Total Protein 7.7 g/dL (6.4-8.2) Albumin 3.5 g/dL (3.4-5.0) Albumin/Globulin Ratio 0.8 (1.0-1.7) Lipase 09944 U/L (73-393) Urine Collection Type Unknown Urine Color Yellow Urine Clarity Clear Urine pH 7.0 (<5.0-8.0) Urine Specific [place] 1.015 (1.000-1.030) Urine Protein Negative mg/dL (NEG-TRACE) Urine Glucose (UA) Negative mg/dL (NEG) Urine Ketones (Stick) Negative mg/dL (NEG) Urine Blood Negative (NEG) Urine Nitrite Negative (NEG) Urine Bilirubin Negative (NEG) Urine Urobilinogen Dipstick 1.0 mg/dL (0.2 mg/dL) Urine Leukocyte Esterase Negative (NEG) Urine RBC Rare /HPF (0-2) Urine WBC 0 /HPF (0-4) Urine Squamous Epithelial Cells Few /LPF Urine Bacteria 0 /HPF (0-FEW) Urine Mucus Mod /LPF Test 10/17/19 04:00 10/18/19 03:10 Total Bilirubin 0.8 mg/dL (0.2-1.0) 1.3 mg/dL (0.2-1.0) Direct Bilirubin 0.3 mg/dL (0.0-0.2) Aspartate Amino Transf (AST/SGOT) 190 U/L (15-37) 52 U/L (15-37) Alanine Aminotransferase (ALT/SGPT) 296 U/L (16-63) 151 U/L (16-63) Alkaline Phosphatase 83 U/L (46-116) 80 U/L (46-116) Total Protein 7.5 g/dL (6.4-8.2) 6.7 g/dL (6.4-8.2) Albumin 3.3 g/dL (3.4-5.0) 2.8 g/dL (3.4-5.0) Triglycerides Level 41 mg/dL (0-150) Cholesterol Level 174 mg/dL (0-200) LDL Cholesterol, Calculated 93 mg/dL (0-100) VLDL Cholesterol, Calculated 8 mg/dL (0-40) Non-HDL Cholesterol Calculated 101 mg/dL (0-129) HDL Cholesterol 73 mg/dL (40-60) Cholesterol/HDL Ratio 2.4 Lipase 4667 U/L (73-393) 600 U/L (73-393) White Blood Count 13.4 x10^3/uL (4.0-11.0) Red Blood Count 3.69 x10^6/uL (4.30-5.70) Hemoglobin 12.3 g/dL (13.0-17.5) Hematocrit 36.5 % (39.0-53.0) Mean Corpuscular Volume 99 fL (79-100) Mean Corpuscular Hemoglobin 33 pg (25-35) Mean Corpuscular Hemoglobin Concent 34 g/dL (31-37) Red Cell Distribution Width 13.8 % (11.5-14.5) Platelet Count 206 x10^3/uL (140-400) Neutrophils (%) (Auto) 82 % (31-73) Lymphocytes (%) (Auto) 8 % (24-48) Monocytes (%) (Auto) 9 % (0-9) Eosinophils (%) (Auto) 0 % (0-3) Basophils (%) (Auto) 0 % (0-3) Neutrophils # (Auto) 11.1 x10^3/uL (1.8-7.7) Lymphocytes # (Auto) 1.1 x10^3/uL (1.0-4.8) Monocytes # (Auto) 1.3 x10^3/uL (0.0-1.1) Eosinophils # (Auto) 0.0 x10^3/uL (0.0-0.7) Basophils # (Auto) 0.0 x10^3/uL (0.0-0.2) Sodium Level 136 mmol/L (136-145) Potassium Level 3.3 mmol/L (3.5-5.1) Chloride Level 101 mmol/L (98-107) Carbon Dioxide Level 25 mmol/L (21-32) Anion Gap 10 (6-14) Blood Urea Nitrogen 11 mg/dL (8-26) Creatinine 1.0 mg/dL (0.7-1.3) Estimated GFR (Cockcroft-Gault) 73.5 BUN/Creatinine Ratio 11 (6-20) Glucose Level 118 mg/dL (70-99) Calcium Level 7.9 mg/dL (8.5-10.1) Albumin/Globulin Ratio 0.7 (1.0-1.7) Laboratory Tests Test 10/18/19 03:10 White Blood Count 13.4 x10^3/uL (4.0-11.0) Red Blood Count 3.69 x10^6/uL (4.30-5.70) Hemoglobin 12.3 g/dL (13.0-17.5) Hematocrit 36.5 % (39.0-53.0) Mean Corpuscular Volume 99 fL (79-100) Mean Corpuscular Hemoglobin 33 pg (25-35) Mean Corpuscular Hemoglobin Concent 34 g/dL (31-37) Red Cell Distribution Width 13.8 % (11.5-14.5) Platelet Count 206 x10^3/uL (140-400) Neutrophils (%) (Auto) 82 % (31-73) Lymphocytes (%) (Auto) 8 % (24-48) Monocytes (%) (Auto) 9 % (0-9) Eosinophils (%) (Auto) 0 % (0-3) Basophils (%) (Auto) 0 % (0-3) Neutrophils # (Auto) 11.1 x10^3/uL (1.8-7.7) Lymphocytes # (Auto) 1.1 x10^3/uL (1.0-4.8) Monocytes # (Auto) 1.3 x10^3/uL (0.0-1.1) Eosinophils # (Auto) 0.0 x10^3/uL (0.0-0.7) Basophils # (Auto) 0.0 x10^3/uL (0.0-0.2) Sodium Level 136 mmol/L (136-145) Potassium Level 3.3 mmol/L (3.5-5.1) Chloride Level 101 mmol/L (98-107) Carbon Dioxide Level 25 mmol/L (21-32) Anion Gap 10 (6-14) Blood Urea Nitrogen 11 mg/dL (8-26) Creatinine 1.0 mg/dL (0.7-1.3) Estimated GFR (Cockcroft-Gault) 73.5 BUN/Creatinine Ratio 11 (6-20) Glucose Level 118 mg/dL (70-99) Calcium Level 7.9 mg/dL (8.5-10.1) Total Bilirubin 1.3 mg/dL (0.2-1.0) Aspartate Amino Transf (AST/SGOT) 52 U/L (15-37) Alanine Aminotransferase (ALT/SGPT) 151 U/L (16-63) Alkaline Phosphatase 80 U/L (46-116) Total Protein 6.7 g/dL (6.4-8.2) Albumin 2.8 g/dL (3.4-5.0) Albumin/Globulin Ratio 0.7 (1.0-1.7) Lipase 600 U/L (73-393) Microbiology 10/17/19 Blood Culture - Preliminary, Resulted NO GROWTH AFTER 1 DAY Medications Current Medications Aspirin (Aspirin Chewable) 324 mg 1X ONCE PO Last administered on 10/16/19at 12:09; Start 10/16/19 at 12:15; Stop 10/16/19 at 12:16; Status DC Multi-Ingredient Mouthwash/Gargle (Gi Cocktail) 20 ml 1X ONCE SWSW Last administered on 10/16/19at 12:53; Start 10/16/19 at 13:00; Stop 10/16/19 at 13:01; Status DC Magnesium Sulfate/ Dextrose 100 ml @ 100 mls/hr 1X ONCE IV Last administered on 10/16/19at 21:35; Start 10/16/19 at 21:30; Stop 10/16/19 at 22:29; Status DC Potassium Chloride/Water 100 ml @ 100 mls/hr Q1H IV Last administered on 10/16/19at 21:33; Start 10/16/19 at 19:30; Stop 10/16/19 at 21:29; Status DC Potassium Chloride/Dextrose/ Sod Cl 1,000 ml @ 100 mls/hr Q10H IV Last administered on 10/18/19at 01:30; Start 10/16/19 at 19:30 Ondansetron HCl (Zofran) 4 mg PRN Q4HRS PRN IV NAUSEA/VOMITING; Start 10/16/19 at 18:45 Acetaminophen (Tylenol) 650 mg PRN Q4HRS PRN PO TEMP OVER 100.4F OR MILD PAIN; Start 10/16/19 at 18:45 Acetaminophen (Tylenol Supp) 650 mg PRN Q4HRS PRN MO TEMP OVER 100.4F OR MILD PAIN; Start 10/16/19 at 18:45 Enoxaparin Sodium (Lovenox 40mg Syringe) 40 mg Q24H SQ Last administered on 10/17/19at 20:39; Start 10/16/19 at 21:00 Piperacillin Sod/ Tazobactam Sod 3.375 gm/Sodium Chloride 50 ml @ 100 mls/hr Q6HRS IV Last administered on 10/18/19at 05:33; Start 10/17/19 at 00:00 Iohexol (Omnipaque 300 Mg/ml) 75 ml 1X ONCE IV Last administered on 10/17/19at 07:15; Start 10/17/19 at 07:15; Stop 10/17/19 at 07:16; Status DC Iohexol (Omnipaque 240 Mg/ml) 50 ml 1X ONCE PO Last administered on 10/17/19at 07:33; Start 10/17/19 at 07:15; Stop 10/17/19 at 07:16; Status DC Info (CONTRAST GIVEN -- Rx MONITORING) 1 each PRN DAILY PRN MC SEE COMMENTS; Start 10/17/19 at 07:15; Stop 10/19/19 at 07:14 Tamsulosin HCl (Flomax) 0.4 mg QHS PO Last administered on 10/17/19at 20:39; S tart 10/17/19 at 21:00 Tamsulosin HCl (Flomax) 0.4 mg 1X ONCE PO Last administered on 10/17/19at 12:00; Start 10/17/19 at 10:00; Stop 10/17/19 at 10:01; Status DC Vitals/I & O Vital Sign - Last 24 Hours 10/17/19 10/17/19 10/17/19 10/17/19 11:00 15:00 19:00 20:00 Temp 98.0 98.0 98.6 98.0 98.0 98.6 Pulse 95 18 98 Resp 18 18 20 B/P (MAP) 159/78 (105) 149/78 (101) 132/60 (84) Pulse Ox 95 98 97 O2 Delivery Room Air Room Air Room Air Room Air 10/17/19 10/18/19 23:00 03:00 Temp 98.7 99.5 98.7 99.5 Pulse 87 89 Resp 18 18 B/P (MAP) 141/65 (90) 125/56 (79) Pulse Ox 96 93 O2 Delivery Room Air Room Air Justicifation of Admission Dx: Justifications for Admission: Justification of Admission Dx: Yes MANOJ LARSEN MD Oct 18, 2019 08:27
--- NOTE | 2019-10-18 08:49 | PDOC ---
CHRISTOPHER WE[employer]S [employer] 10/18/19 0849: SURGICAL PROGRESS NOTE Subjective improved minimal pain no nausea Vital Signs Vital Signs Date Time Temp Pulse Resp B/P (MAP) Pulse Ox O2 Delivery O2 Flow Rate FiO2 10/18/19 07:00 98.7 91 18 143/69 (93) 18 Room Air 98.7 General: Alert, Oriented X3, Cooperative Abdomen: Soft, Other (mild ttp epigastric ) Labs Laboratory Tests Test 10/16/19 11:28 10/16/19 13:20 10/16/19 17:05 10/16/19 20:00 White Blood Count 17.4 x10^3/uL (4.0-11.0) Red Blood Count 4.04 x10^6/uL (4.30-5.70) Hemoglobin 13.8 g/dL (13.0-17.5) Hematocrit 39.7 % (39.0-53.0) Mean Corpuscular Volume 98 fL (79-100) Mean Corpuscular Hemoglobin 34 pg (25-35) Mean Corpuscular Hemoglobin Concent 35 g/dL (31-37) Red Cell Distribution Width 13.6 % (11.5-14.5) Platelet Count 257 x10^3/uL (140-400) Neutrophils (%) (Auto) 83 % (31-73) Lymphocytes (%) (Auto) 7 % (24-48) Monocytes (%) (Auto) 9 % (0-9) Eosinophils (%) (Auto) 0 % (0-3) Basophils (%) (Auto) 0 % (0-3) Neutrophils # (Auto) 14.4 x10^3/uL (1.8-7.7) Lymphocytes # (Auto) 1.2 x10^3/uL (1.0-4.8) Monocytes # (Auto) 1.6 x10^3/uL (0.0-1.1) Eosinophils # (Auto) 0.1 x10^3/uL (0.0-0.7) Basophils # (Auto) 0.1 x10^3/uL (0.0-0.2) Segmented Neutrophils % 72 % (35-66) Band Neutrophils % 7 % (0-9) Lymphocytes % 12 % (24-48) Monocytes % 9 % (0-10) Platelet Estimate Adequate (ADEQUATE) Activated Partial Thromboplast Time 21 SEC (24-38) Sodium Level 140 mmol/L (136-145) Potassium Level 3.5 mmol/L (3.5-5.1) Chloride Level 103 mmol/L (98-107) Carbon Dioxide Level 28 mmol/L (21-32) Anion Gap 9 (6-14) Blood Urea Nitrogen 12 mg/dL (8-26) Creatinine 1.1 mg/dL (0.7-1.3) Estimated GFR (Cockcroft-Gault) 65.8 BUN/Creatinine Ratio 11 (6-20) Glucose Level 121 mg/dL (70-99) Calcium Level 8.5 mg/dL (8.5-10.1) Magnesium Level 1.9 mg/dL (1.8-2.4) Total Bilirubin 0.8 mg/dL (0.2-1.0) Aspartate Amino Transf (AST/SGOT) 436 U/L (15-37) Alanine Aminotransferase (ALT/SGPT) 352 U/L (16-63) Alkaline Phosphatase 96 U/L (46-116) Creatine Kinase 60 U/L (39-308) Creatine Kinase MB (Mass) 0.9 ng/mL (0.0-3.6) Creatine Kinase MB Relative Index 1.5 % (0-4) Troponin I Quantitative < 0.017 ng/mL (0.000-0.055) < 0.017 ng/mL (0.000-0.055) < 0.017 ng/mL (0.000-0.055) KS-Mhx-K-Type Natriuretic Peptide 44 pg/mL (0-124) Total Protein 7.7 g/dL (6.4-8.2) Albumin 3.5 g/dL (3.4-5.0) Albumin/Globulin Ratio 0.8 (1.0-1.7) Lipase 78543 U/L (73-393) Urine Collection Type Unknown Urine Color Yellow Urine Clarity Clear Urine pH 7.0 (<5.0-8.0) Urine Specific [place] 1.015 (1.000-1.030) Urine Protein Negative mg/dL (NEG-TRACE) Urine Glucose (UA) Negative mg/dL (NEG) Urine Ketones (Stick) Negative mg/dL (NEG) Urine Blood Negative (NEG) Urine Nitrite Negative (NEG) Urine Bilirubin Negative (NEG) Urine Urobilinogen Dipstick 1.0 mg/dL (0.2 mg/dL) Urine Leukocyte Esterase Negative (NEG) Urine RBC Rare /HPF (0-2) Urine WBC 0 /HPF (0-4) Urine Squamous Epithelial Cells Few /LPF Urine Bacteria 0 /HPF (0-FEW) Urine Mucus Mod /LPF Test 10/17/19 04:00 10/18/19 03:10 Total Bilirubin 0.8 mg/dL (0.2-1.0) 1.3 mg/dL (0.2-1.0) Direct Bilirubin 0.3 mg/dL (0.0-0.2) Aspartate Amino Transf (AST/SGOT) 190 U/L (15-37) 52 U/L (15-37) Alanine Aminotransferase (ALT/SGPT) 296 U/L (16-63) 151 U/L (16-63) Alkaline Phosphatase 83 U/L (46-116) 80 U/L (46-116) Total Protein 7.5 g/dL (6.4-8.2) 6.7 g/dL (6.4-8.2) Albumin 3.3 g/dL (3.4-5.0) 2.8 g/dL (3.4-5.0) Triglycerides Level 41 mg/dL (0-150) Cholesterol Level 174 mg/dL (0-200) LDL Cholesterol, Calculated 93 mg/dL (0-100) VLDL Cholesterol, Calculated 8 mg/dL (0-40) Non-HDL Cholesterol Calculated 101 mg/dL (0-129) HDL Cholesterol 73 mg/dL (40-60) Cholesterol/HDL Ratio 2.4 Lipase 4667 U/L (73-393) 600 U/L (73-393) White Blood Count 13.4 x10^3/uL (4.0-11.0) Red Blood Count 3.69 x10^6/uL (4.30-5.70) Hemoglobin 12.3 g/dL (13.0-17.5) Hematocrit 36.5 % (39.0-53.0) Mean Corpuscular Volume 99 fL (79-100) Mean Corpuscular Hemoglobin 33 pg (25-35) Mean Corpuscular Hemoglobin Concent 34 g/dL (31-37) Red Cell Distribution Width 13.8 % (11.5-14.5) Platelet Count 206 x10^3/uL (140-400) Neutrophils (%) (Auto) 82 % (31-73) Lymphocytes (%) (Auto) 8 % (24-48) Monocytes (%) (Auto) 9 % (0-9) Eosinophils (%) (Auto) 0 % (0-3) Basophils (%) (Auto) 0 % (0-3) Neutrophils # (Auto) 11.1 x10^3/uL (1.8-7.7) Lymphocytes # (Auto) 1.1 x10^3/uL (1.0-4.8) Monocytes # (Auto) 1.3 x10^3/uL (0.0-1.1) Eosinophils # (Auto) 0.0 x10^3/uL (0.0-0.7) Basophils # (Auto) 0.0 x10^3/uL (0.0-0.2) Sodium Level 136 mmol/L (136-145) Potassium Level 3.3 mmol/L (3.5-5.1) Chloride Level 101 mmol/L (98-107) Carbon Dioxide Level 25 mmol/L (21-32) Anion Gap 10 (6-14) Blood Urea Nitrogen 11 mg/dL (8-26) Creatinine 1.0 mg/dL (0.7-1.3) Estimated GFR (Cockcroft-Gault) 73.5 BUN/Creatinine Ratio 11 (6-20) Glucose Level 118 mg/dL (70-99) Calcium Level 7.9 mg/dL (8.5-10.1) Albumin/Globulin Ratio 0.7 (1.0-1.7) Laboratory Tests Test 10/18/19 03:10 White Blood Count 13.4 x10^3/uL (4.0-11.0) Red Blood Count 3.69 x10^6/uL (4.30-5.70) Hemoglobin 12.3 g/dL (13.0-17.5) Hematocrit 36.5 % (39.0-53.0) Mean Corpuscular Volume 99 fL (79-100) Mean Corpuscular Hemoglobin 33 pg (25-35) Mean Corpuscular Hemoglobin Concent 34 g/dL (31-37) Red Cell Distribution Width 13.8 % (11.5-14.5) Platelet Count 206 x10^3/uL (140-400) Neutrophils (%) (Auto) 82 % (31-73) Lymphocytes (%) (Auto) 8 % (24-48) Monocytes (%) (Auto) 9 % (0-9) Eosinophils (%) (Auto) 0 % (0-3) Basophils (%) (Auto) 0 % (0-3) Neutrophils # (Auto) 11.1 x10^3/uL (1.8-7.7) Lymphocytes # (Auto) 1.1 x10^3/uL (1.0-4.8) Monocytes # (Auto) 1.3 x10^3/uL (0.0-1.1) Eosinophils # (Auto) 0.0 x10^3/uL (0.0-0.7) Basophils # (Auto) 0.0 x10^3/uL (0.0-0.2) Sodium Level 136 mmol/L (136-145) Potassium Level 3.3 mmol/L (3.5-5.1) Chloride Level 101 mmol/L (98-107) Carbon Dioxide Level 25 mmol/L (21-32) Anion Gap 10 (6-14) Blood Urea Nitrogen 11 mg/dL (8-26) Creatinine 1.0 mg/dL (0.7-1.3) Estimated GFR (Cockcroft-Gault) 73.5 BUN/Creatinine Ratio 11 (6-20) Glucose Level 118 mg/dL (70-99) Calcium Level 7.9 mg/dL (8.5-10.1) Total Bilirubin 1.3 mg/dL (0.2-1.0) Aspartate Amino Transf (AST/SGOT) 52 U/L (15-37) Alanine Aminotransferase (ALT/SGPT) 151 U/L (16-63) Alkaline Phosphatase 80 U/L (46-116) Total Protein 6.7 g/dL (6.4-8.2) Albumin 2.8 g/dL (3.4-5.0) Albumin/Globulin Ratio 0.7 (1.0-1.7) Lipase 600 U/L (73-393) Problem List Problems Medical Problems: (1) Chest pain Status: Acute (2) Leukocytosis Status: Acute (3) Pancreatitis Status: Acute (4) Serum lipase elevation Status: Acute Assessment/Plan GS pancreatitis labs improving, noted T bili mildly increased covid pending Justicifation of Admission Dx: Justifications for Admission: Justification of Admission Dx: Yes JOEY GUITERREZ MD 10/18/19 1621: SURGICAL PROGRESS NOTE Assessment/Plan Pt seen and examined. Agree with Ms. Wells's note Pt abd pain significantly improved as are labs plan cholecystectomy 10/18 R/R/B/A d/w pt. Risks, including, but not limited to: bleeding, infection, damage to surrounding structures, risk of anesthesia, risk of open. He appears to understand, his questions are answered and he elects to proceed. CHRISTOPHER WELLS APRN Oct 18, 2019 08:49 JOEY GUTIERREZ MD Oct 18, 2019 16:21
--- NOTE | 2019-10-18 10:31 | NUR ---
SW following. Discussed with RN, pt from [facility], COVID-19 pending for possible lap david. No PT/OT ordered at this time. SW will continue to follow.
[2019-10-18 11:00] VITALS: BP 138/68
--- NOTE | 2019-10-18 11:06 | PDOC ---
Subjective: Subjective: Doing better. Objective: Vital Signs: Vital Signs Date Time Temp Pulse Resp B/P (MAP) Pulse Ox O2 Delivery O2 Flow Rate FiO2 10/18/19 08:00 Room Air 10/18/19 07:00 98.7 91 18 143/69 (93) 18 98.7 Labs: Laboratory Tests Test 10/18/19 03:10 White Blood Count 13.4 x10^3/uL Red Blood Count 3.69 x10^6/uL Hemoglobin 12.3 g/dL Hematocrit 36.5 % Mean Corpuscular Volume 99 fL Mean Corpuscular Hemoglobin 33 pg Mean Corpuscular Hemoglobin Concent 34 g/dL Red Cell Distribution Width 13.8 % Platelet Count 206 x10^3/uL Neutrophils (%) (Auto) 82 % Lymphocytes (%) (Auto) 8 % Monocytes (%) (Auto) 9 % Eosinophils (%) (Auto) 0 % Basophils (%) (Auto) 0 % Neutrophils # (Auto) 11.1 x10^3/uL Lymphocytes # (Auto) 1.1 x10^3/uL Monocytes # (Auto) 1.3 x10^3/uL Eosinophils # (Auto) 0.0 x10^3/uL Basophils # (Auto) 0.0 x10^3/uL Sodium Level 136 mmol/L Potassium Level 3.3 mmol/L Chloride Level 101 mmol/L Carbon Dioxide Level 25 mmol/L Anion Gap 10 Blood Urea Nitrogen 11 mg/dL Creatinine 1.0 mg/dL Estimated GFR (Cockcroft-Gault) 73.5 BUN/Creatinine Ratio 11 Glucose Level 118 mg/dL Calcium Level 7.9 mg/dL Total Bilirubin 1.3 mg/dL Aspartate Amino Transf (AST/SGOT) 52 U/L Alanine Aminotransferase (ALT/SGPT) 151 U/L Alkaline Phosphatase 80 U/L Total Protein 6.7 g/dL Albumin 2.8 g/dL Albumin/Globulin Ratio 0.7 Lipase 600 U/L PE: GEN: NAD, resting LUNGS: CTAB HEART: RRR ABD: soft, mild epigastric discomfort NEURO/PSYCH: A & O 3, calm and cooperative A/P: Pancreatitis, possible microlithiasis Leukocytosis - better Transaminitis - better, bili mildly elevated today and Alk Phos remains WNL Abnormal CT w/ esophageal wall thickening - asymptomatic, no plans for EGD -- Continue per surgery, COVID test pending. Justicifation of Admission Dx: Justifications for Admission: Justification of Admission Dx: Yes DUYEN NORWOOD Oct 18, 2019 11:06
--- NOTE | 2019-10-18 12:05 | EKG ---
[facility] [address] [place] [address] Test Date: 2019-10-16 Test Time: 11:19:05 Pat Name: SHANAE FREITAS Department: Room: Gender: M [employer]: : 1945 Requested By: EYAD DOMINIQUE Order Number: [id number] Reading MD: Measurements Intervals [place] Rate: 97 P: -41 DE: 178 QRS: 64 QRSD: 124 T: 54 QT: 348 QTc: 446 Interpretive Statements SINUS RHYTHM RIGHT BUNDLE BRANCH BLOCK RVH WITH REPOLARIZATION ABNORMALITY ABNORMAL ECG RI6.01 No previous ECG available for comparison
[2019-10-18 15:00] VITALS: BP 140/68
[2019-10-18 19:00] VITALS: BP 122/63
[2019-10-18] MEDS: TAMSULOSIN 0.4 MG CAP.ER.24H. PO SCH (20:40)
[2019-10-18] MEDS: ENOXAPARIN 40 MG/0.4 ML SYRINGE. SQ SCH (20:41)
[2019-10-18 23:00] VITALS: BP 145/66
[2019-10-19] VITALS (11 sets, daily range): BP systolic 111–156; BP diastolic 51–70
[2019-10-19] MEDS: PIPERACILLIN/TAZOBACTAM 3.375 GM in IV NORMAL SALINE 50ML 50 ML IV SCH ×4 (00:28→16:59)
[2019-10-19] MEDS ORDERED: fentaNYL PF VIAL 100 MCG/2 ML VIAL IV PRN ×2 (07:00)
[2019-10-19] MEDS ORDERED: MORPHINE SULFATE 2 MG/ML VIAL. IV PRN (07:00)
[2019-10-19] MEDS ORDERED: IV RINGERS,LACTATED 1000ML 1,000 ML IV SCH (07:00)
[2019-10-19] MEDS ORDERED: PROCHLORPERAZINE 10 MG/2 ML VIAL. IV PRN (07:00)
[2019-10-19] MEDS ORDERED: HYDROmorphone 2 MG/ML VIAL IV PRN (07:00)
[2019-10-19] MEDS ORDERED: ONDANSETRON PF 4 MG/2 ML VIAL. IV PRN (07:00)
[2019-10-19] MEDS ORDERED: LIDOCAINE 1% PF 2 ML VIAL. ID PRN (07:00)
[2019-10-19 08:41] LABS: BASO # 0.1 x10^3/uL (0.0-0.2); BASO % 1 % (0-3); EOS # 0.1 x10^3/uL (0.0-0.7); EOS % 1 % (0-3); HEMATOCRIT 35.6 % (39.0-53.0); HEMOGLOBIN 12.1 g/dL (13.0-17.5); LYMPH # 1.1 x10^3/uL (1.0-4.8); LYMPH % 10 % (24-48); MEAN CORPUSCULAR HEMOGLOBIN 34 pg (25-35); MEAN CORPUSCULAR HGB CONC 34 g/dL (31-37); MEAN CORPUSCULAR VOLUME 99 fL (79-100); MONO # 1.2 x10^3/uL (0.0-1.1); MONO % 11 % (0-9); NEUT # 8.3 x10^3/uL (1.8-7.7); NEUT % 78 % (31-73); PLATELET COUNT 208 x10^3/uL (140-400); RED BLOOD COUNT 3.59 x10^6/uL (4.30-5.70); RED CELL DISTRIBUTION WIDTH 13.8 % (11.5-14.5); WHITE BLOOD COUNT 10.6 x10^3/uL (4.0-11.0)
[2019-10-19] MEDS: POTASSIUM CL 20MEQ D5-0.45NACL 1,000 ML IV SCH ×2 (08:49→15:31)
[2019-10-19] MEDS ORDERED: HEPARIN 1,000 UNIT in IV NORMAL SALINE 1,000 ML for SURG PERIOP IRR ONE (08:50)
[2019-10-19 09:13] LABS: ALBUMIN 2.7 g/dL (3.4-5.0); ALBUMIN/GLOBULIN RATIO 0.8 (1.0-1.7); CALCIUM 7.9 mg/dL (8.5-10.1); CREATININE 0.8 mg/dL (0.7-1.3); TOTAL BILIRUBIN 0.9 mg/dL (0.2-1.0); TOTAL PROTEIN 6.2 g/dL (6.4-8.2)
--- NOTE | 2019-10-19 09:37 | NUR ---
SW following. Discussed with RN, pt having surgery today. PT/OT ordered. SW will continue to follow.
--- NOTE | 2019-10-19 09:57 | PDOC ---
PROGRESS NOTES Chief Complaint Chief Complaint IMPRESSION Acute pancreatitis - // gallstone pancreatitis, normal triglycerides. no meds, no ETOH use. NPO, consult surgery and GI Epigastric abdominal pain - 2/2 above, cholecystitis may also be present. 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 Underlying mass not excluded. FEN - NPO PPX - lovenox DNR/DNI Dispo - inpatient for 2 midnights gi consulted pursue cholecystectomy. Don't feel EGD needed at this point. Could consider screening colonoscopy. COVID-19 SCREEN TO OR for laparoscopic versus open cholecystectomy with cholangiogram. 10/18 37 min pt exam, chart review, > 50% of time spent with exam, chart review, pt care coordination History of Present Illness History of Present Illness Mr Parra is a 74yo M resident of [facility] w/ PMHx arthritis, HLD, CVA 2006 with left sided weakness who presents with complaints of epigastric abdominal pain starting 2 hours prior to ED visit. Rates this pressure feeling at a 7/10 as a "gas" feeling. Has nausea. Patient denies shortness of breath, diaphoresis, diarrhea. No chest pain. Patient denies any recent fever chills or changes in vision. Patient denies any nasal congestion or sore throat. No changes in his stool habits. Patient denies any problems urinating. Patient denies any back or joint pains or any skin rashes. Patient denies any weaknesses that have changed since his stroke recovery. Patient denies history of EtOH, is a nondrinker, quit smoking in 2019. WBC 17.4, Hb 13.8, Platelets 257, Na 140, K 3.5, BUN 12, Cr. 1.1, Troponin negative x 2, AST 436, ALT 352, and Lipase 29,956. EKG NSR, no stemi. CXR clear. RUQ US with gallbladder wall thickening. no visualization of CBD. Admitted for further treatment. CT abdomen showed acute pancreatitis, suspected mild gallbladder wall thickening, no apparent biliary ductal dilatation or choledocholithiasis and distended urinary bladder with mild diffuse bladder wall thickening, right UVJ without evidence of right-sided hydronephrosis which could represent a small nonobstructing UVJ calculus or a nonspecific bladder wall calcification. Lipase improved to 4667. Afebrile. Still with diffuse abdominal pain and decreased appetite. Vitals Vitals Vital Signs Date Time Temp Pulse Resp B/P (MAP) Pulse Ox O2 Delivery O2 Flow Rate FiO2 10/19/19 07:00 98.7 91 18 136/64 (88) 96 Room Air 98.7 Physical Exam General: Alert, Oriented X3, Cooperative, No acute distress Abdomen: Soft, Other (mild ttp epigastric ) Extremities: No clubbing, No cyanosis Skin: No rashes, No breakdown Labs LABS Laboratory Tests Test 10/19/19 05:13 White Blood Count 10.6 x10^3/uL (4.0-11.0) Red Blood Count 3.59 x10^6/uL (4.30-5.70) Hemoglobin 12.1 g/dL (13.0-17.5) Hematocrit 35.6 % (39.0-53.0) Mean Corpuscular Volume 99 fL (79-100) Mean Corpuscular Hemoglobin 34 pg (25-35) Mean Corpuscular Hemoglobin Concent 34 g/dL (31-37) Red Cell Distribution Width 13.8 % (11.5-14.5) Platelet Count 208 x10^3/uL (140-400) Neutrophils (%) (Auto) 78 % (31-73) Lymphocytes (%) (Auto) 10 % (24-48) Monocytes (%) (Auto) 11 % (0-9) Eosinophils (%) (Auto) 1 % (0-3) Basophils (%) (Auto) 1 % (0-3) Neutrophils # (Auto) 8.3 x10^3/uL (1.8-7.7) Lymphocytes # (Auto) 1.1 x10^3/uL (1.0-4.8) Monocytes # (Auto) 1.2 x10^3/uL (0.0-1.1) Eosinophils # (Auto) 0.1 x10^3/uL (0.0-0.7) Basophils # (Auto) 0.1 x10^3/uL (0.0-0.2) Sodium Level 137 mmol/L (136-145) Potassium Level 4.0 mmol/L (3.5-5.1) Chloride Level 101 mmol/L (98-107) Carbon Dioxide Level 23 mmol/L (21-32) Anion Gap 13 (6-14) Blood Urea Nitrogen 10 mg/dL (8-26) Creatinine 0.8 mg/dL (0.7-1.3) Estimated GFR (Cockcroft-Gault) 95.0 BUN/Creatinine Ratio 13 (6-20) Glucose Level 114 mg/dL (70-99) Calcium Level 7.9 mg/dL (8.5-10.1) Total Bilirubin 0.9 mg/dL (0.2-1.0) Aspartate Amino Transf (AST/SGOT) 37 U/L (15-37) Alanine Aminotransferase (ALT/SGPT) 116 U/L (16-63) Alkaline Phosphatase 100 U/L (46-116) Total Protein 6.2 g/dL (6.4-8.2) Albumin 2.7 g/dL (3.4-5.0) Albumin/Globulin Ratio 0.8 (1.0-1.7) Assessment and Plan Assessmemt and Plan Problems Medical Problems: (1) Chest pain Status: Acute (2) Leukocytosis Status: Acute (3) Pancreatitis Status: Acute (4) Serum lipase elevation Status: Acute Comment Review of Relevant I have reviewed the following items sarah (where applicable) has been applied. Labs Laboratory Tests Test 10/18/19 03:10 10/18/19 07:00 10/19/19 05:13 White Blood Count 13.4 x10^3/uL (4.0-11.0) 10.6 x10^3/uL (4.0-11.0) Red Blood Count 3.69 x10^6/uL (4.30-5.70) 3.59 x10^6/uL (4.30-5.70) Hemoglobin 12.3 g/dL (13.0-17.5) 12.1 g/dL (13.0-17.5) Hematocrit 36.5 % (39.0-53.0) 35.6 % (39.0-53.0) Mean Corpuscular Volume 99 fL (79-100) 99 fL (79-100) Mean Corpuscular Hemoglobin 33 pg (25-35) 34 pg (25-35) Mean Corpuscular Hemoglobin Concent 34 g/dL (31-37) 34 g/dL (31-37) Red Cell Distribution Width 13.8 % (11.5-14.5) 13.8 % (11.5-14.5) Platelet Count 206 x10^3/uL (140-400) 208 x10^3/uL (140-400) Neutrophils (%) (Auto) 82 % (31-73) 78 % (31-73) Lymphocytes (%) (Auto) 8 % (24-48) 10 % (24-48) Monocytes (%) (Auto) 9 % (0-9) 11 % (0-9) Eosinophils (%) (Auto) 0 % (0-3) 1 % (0-3) Basophils (%) (Auto) 0 % (0-3) 1 % (0-3) Neutrophils # (Auto) 11.1 x10^3/uL (1.8-7.7) 8.3 x10^3/uL (1.8-7.7) Lymphocytes # (Auto) 1.1 x10^3/uL (1.0-4.8) 1.1 x10^3/uL (1.0-4.8) Monocytes # (Auto) 1.3 x10^3/uL (0.0-1.1) 1.2 x10^3/uL (0.0-1.1) Eosinophils # (Auto) 0.0 x10^3/uL (0.0-0.7) 0.1 x10^3/uL (0.0-0.7) Basophils # (Auto) 0.0 x10^3/uL (0.0-0.2) 0.1 x10^3/uL (0.0-0.2) Sodium Level 136 mmol/L (136-145) 137 mmol/L (136-145) Potassium Level 3.3 mmol/L (3.5-5.1) 4.0 mmol/L (3.5-5.1) Chloride Level 101 mmol/L (98-107) 101 mmol/L (98-107) Carbon Dioxide Level 25 mmol/L (21-32) 23 mmol/L (21-32) Anion Gap 10 (6-14) 13 (6-14) Blood Urea Nitrogen 11 mg/dL (8-26) 10 mg/dL (8-26) Creatinine 1.0 mg/dL (0.7-1.3) 0.8 mg/dL (0.7-1.3) Estimated GFR (Cockcroft-Gault) 73.5 95.0 BUN/Creatinine Ratio 11 (6-20) 13 (6-20) Glucose Level 118 mg/dL (70-99) 114 mg/dL (70-99) Calcium Level 7.9 mg/dL (8.5-10.1) 7.9 mg/dL (8.5-10.1) Total Bilirubin 1.3 mg/dL (0.2-1.0) 0.9 mg/dL (0.2-1.0) Aspartate Amino Transf (AST/SGOT) 52 U/L (15-37) 37 U/L (15-37) Alanine Aminotransferase (ALT/SGPT) 151 U/L (16-63) 116 U/L (16-63) Alkaline Phosphatase 80 U/L (46-116) 100 U/L (46-116) Total Protein 6.7 g/dL (6.4-8.2) 6.2 g/dL (6.4-8.2) Albumin 2.8 g/dL (3.4-5.0) 2.7 g/dL (3.4-5.0) Albumin/Globulin Ratio 0.7 (1.0-1.7) 0.8 (1.0-1.7) Lipase 600 U/L (73-393) Coronavirus (COVID-19)(PCR) Negative (NEGATIVE) Laboratory Tests Test 10/19/19 05:13 White Blood Count 10.6 x10^3/uL (4.0-11.0) Red Blood Count 3.59 x10^6/uL (4.30-5.70) Hemoglobin 12.1 g/dL (13.0-17.5) Hematocrit 35.6 % (39.0-53.0) Mean Corpuscular Volume 99 fL (79-100) Mean Corpuscular Hemoglobin 34 pg (25-35) Mean Corpuscular Hemoglobin Concent 34 g/dL (31-37) Red Cell Distribution Width 13.8 % (11.5-14.5) Platelet Count 208 x10^3/uL (140-400) Neutrophils (%) (Auto) 78 % (31-73) Lymphocytes (%) (Auto) 10 % (24-48) Monocytes (%) (Auto) 11 % (0-9) Eosinophils (%) (Auto) 1 % (0-3) Basophils (%) (Auto) 1 % (0-3) Neutrophils # (Auto) 8.3 x10^3/uL (1.8-7.7) Lymphocytes # (Auto) 1.1 x10^3/uL (1.0-4.8) Monocytes # (Auto) 1.2 x10^3/uL (0.0-1.1) Eosinophils # (Auto) 0.1 x10^3/uL (0.0-0.7) Basophils # (Auto) 0.1 x10^3/uL (0.0-0.2) Sodium Level 137 mmol/L (136-145) Potassium Level 4.0 mmol/L (3.5-5.1) Chloride Level 101 mmol/L (98-107) Carbon Dioxide Level 23 mmol/L (21-32) Anion Gap 13 (6-14) Blood Urea Nitrogen 10 mg/dL (8-26) Creatinine 0.8 mg/dL (0.7-1.3) Estimated GFR (Cockcroft-Gault) 95.0 BUN/Creatinine Ratio 13 (6-20) Glucose Level 114 mg/dL (70-99) Calcium Level 7.9 mg/dL (8.5-10.1) Total Bilirubin 0.9 mg/dL (0.2-1.0) Aspartate Amino Transf (AST/SGOT) 37 U/L (15-37) Alanine Aminotransferase (ALT/SGPT) 116 U/L (16-63) Alkaline Phosphatase 100 U/L (46-116) Total Protein 6.2 g/dL (6.4-8.2) Albumin 2.7 g/dL (3.4-5.0) Albumin/Globulin Ratio 0.8 (1.0-1.7) Microbiology 10/17/19 Blood Culture - Preliminary, Resulted NO GROWTH AFTER 2 DAYS Medications Current Medications Aspirin (Aspirin Chewable) 324 mg 1X ONCE PO Last administered on 10/16/19at 12:09; Start 10/16/19 at 12:15; Stop 10/16/19 at 12:16; Status DC Multi-Ingredient Mouthwash/Gargle (Gi Cocktail) 20 ml 1X ONCE SWSW Last ad ministered on 10/16/19at 12:53; Start 10/16/19 at 13:00; Stop 10/16/19 at 13:01; Status DC Magnesium Sulfate/ Dextrose 100 ml @ 100 mls/hr 1X ONCE IV Last administered on 10/16/19at 21:35; Start 10/16/19 at 21:30; Stop 10/16/19 at 22:29; Status DC Potassium Chloride/Water 100 ml @ 100 mls/hr Q1H IV Last administered on 10/16/19at 21:33; Start 10/16/19 at 19:30; Stop 10/16/19 at 21:29; Status DC Potassium Chloride/Dextrose/ Sod Cl 1,000 ml @ 100 mls/hr Q10H IV Last administered on 10/19/19at 08:49; Start 10/16/19 at 19:30 Ondansetron HCl (Zofran) 4 mg PRN Q4HRS PRN IV NAUSEA/VOMITING; Start 10/16/19 at 18:45 Acetaminophen (Tylenol) 650 mg PRN Q4HRS PRN PO TEMP OVER 100.4F OR MILD PAIN; Start 10/16/19 at 18:45 Acetaminophen (Tylenol Supp) 650 mg PRN Q4HRS PRN UT TEMP OVER 100.4F OR MILD PAIN; Start 10/16/19 at 18:45 Enoxaparin Sodium (Lovenox 40mg Syringe) 40 mg Q24H SQ Last administered on 10/17/19at 20:39; Start 10/16/19 at 21:00 Piperacillin Sod/ Tazobactam Sod 3.375 gm/Sodium Chloride 50 ml @ 100 mls/hr Q6HRS IV Last administered on 10/19/19at 00:28; Start 10/17/19 at 00:00 Iohexol (Omnipaque 300 Mg/ml) 75 ml 1X ONCE IV Last administered on 10/17/19at 07:15; Start 10/17/19 at 07:15; Stop 10/17/19 at 07:16; Status DC Iohexol (Omnipaque 240 Mg/ml) 50 ml 1X ONCE PO Last administered on 10/17/19at 07:33; Start 10/17/19 at 07:15; Stop 10/17/19 at 07:16; Status DC Info (CONTRAST GIVEN -- Rx MONITORING) 1 each PRN DAILY PRN MC SEE COMMENTS; Start 10/17/19 at 07:15; Stop 10/19/19 at 07:14; Status DC Tamsulosin HCl (Flomax) 0.4 mg QHS PO Last administered on 10/18/19at 20:40; Start 10/17/19 at 21:00 Tamsulosin HCl (Flomax) 0.4 mg 1X ONCE PO Last administered on 10/17/19at 12:00; Start 10/17/19 at 10:00; Stop 10/17/19 at 10:01; Status DC Ondansetron HCl (Zofran) 4 mg PRN Q6HRS PRN IV NAUSEA/VOMITING; Start 10/19/19 at 07:00; Stop 10/20/19 at 06:59 Fentanyl Citrate (Fentanyl 2ml Vial) 25 mcg PRN Q5MIN PRN IV MILD PAIN 1-3; Start 10/19/19 at 07:00; Stop 10/20/19 at 06:59 Fentanyl Citrate (Fentanyl 2ml Vial) 50 mcg PRN Q5MIN PRN IV MODERATE TO SEVERE PAIN; Start 10/19/19 at 07:00; Stop 10/20/19 at 06:59 Morphine Sulfate (Morphine Sulfate) 1 mg PRN Q10MIN PRN IV SEVERE PAIN 7-10; Start 10/19/19 at 07:00; Stop 10/20/19 at 06:59 Ringer's Solution 1,000 ml @ 30 mls/hr Q24H IV ; Start 10/19/19 at 07:00; Stop 10/19/19 at 18:59 Lidocaine HCl (Xylocaine-Mpf 1% 2ml Vial) 2 ml PRN 1X PRN ID PRIOR TO IV START; Start 10/19/19 at 07:00; Stop 10/20/19 at 06:59 Hydromorphone HCl (Dilaudid) 0.5 mg PRN Q10MIN PRN IV SEV PAIN, Second choice; Start 10/19/19 at 07:00; Stop 10/20/19 at 06:59 Prochlorperazine Edisylate (Compazine) 5 mg PACU PRN PRN IV NAUSEA, MRX1; Start 10/19/19 at 07:00; Stop 10/20/19 at 06:59 Heparin Sodium (Porcine) 1000 unit/Sodium Chloride 1,001 ml @ 1,001 mls/hr 1X ONCE IRR ; Start 10/19/19 at 08:50; Stop 10/19/19 at 09:49; Status DC Vitals/I & O Vital Sign - Last 24 Hours 10/18/19 10/18/19 10/18/19 10/18/19 11:00 15:00 19:00 20:00 Temp 98.7 98.0 97.6 98.7 98.0 97.6 Pulse 90 90 100 Resp 18 18 20 B/P (MAP) 138/68 (91) 140/68 (92) 122/63 (82) Pulse Ox 92 92 92 O2 Delivery Room Air Room Air Room Air Room Air 10/18/19 10/19/19 10/19/19 23:00 03:00 07:00 Temp 99.0 98.4 98.7 99.0 98.4 98.7 Pulse 86 89 91 Resp 18 18 18 B/P (MAP) 145/66 (92) 142/67 (92) 136/64 (88) Pulse Ox 93 95 96 O2 Delivery Room Air Room Air Room Air Justicifation of Admission Dx: Justifications for Admission: Justification of Admission Dx: Yes MANOJ LARSEN MD Oct 19, 2019 09:57
--- NOTE | 2019-10-19 10:21 | PDOC ---
Subjective: Subjective: Thinks having surgery later. Abdomen is a little sore. Objective: Vital Signs: Vital Signs Date Time Temp Pulse Resp B/P (MAP) Pulse Ox O2 Delivery O2 Flow Rate FiO2 10/19/19 07:00 98.7 91 18 136/64 (88) 96 Room Air 98.7 Labs: Laboratory Tests Test 10/19/19 05:13 White Blood Count 10.6 x10^3/uL Red Blood Count 3.59 x10^6/uL Hemoglobin 12.1 g/dL Hematocrit 35.6 % Mean Corpuscular Volume 99 fL Mean Corpuscular Hemoglobin 34 pg Mean Corpuscular Hemoglobin Concent 34 g/dL Red Cell Distribution Width 13.8 % Platelet Count 208 x10^3/uL Neutrophils (%) (Auto) 78 % Lymphocytes (%) (Auto) 10 % Monocytes (%) (Auto) 11 % Eosinophils (%) (Auto) 1 % Basophils (%) (Auto) 1 % Neutrophils # (Auto) 8.3 x10^3/uL Lymphocytes # (Auto) 1.1 x10^3/uL Monocytes # (Auto) 1.2 x10^3/uL Eosinophils # (Auto) 0.1 x10^3/uL Basophils # (Auto) 0.1 x10^3/uL Sodium Level 137 mmol/L Potassium Level 4.0 mmol/L Chloride Level 101 mmol/L Carbon Dioxide Level 23 mmol/L Anion Gap 13 Blood Urea Nitrogen 10 mg/dL Creatinine 0.8 mg/dL Estimated GFR (Cockcroft-Gault) 95.0 BUN/Creatinine Ratio 13 Glucose Level 114 mg/dL Calcium Level 7.9 mg/dL Total Bilirubin 0.9 mg/dL Aspartate Amino Transf (AST/SGOT) 37 U/L Alanine Aminotransferase (ALT/SGPT) 116 U/L Alkaline Phosphatase 100 U/L Total Protein 6.2 g/dL Albumin 2.7 g/dL Albumin/Globulin Ratio 0.8 PE: GEN: NAD, resting LUNGS: CTAB HEART: RRR ABD: soft NEURO/PSYCH: A & O 3 A/P: Pancreatitis, possible microlithiasis Leukocytosis - resolved Transaminitis - still improving COVID-19 negative -- Awaiting cholecystectomy, will follow. Justicifation of Admission Dx: Justifications for Admission: Justification of Admission Dx: Yes DUYEN NORWOOD Oct 19, 2019 10:21
[2019-10-19] MEDS ORDERED: SURGICEL HEMOSTAT 2X14 EACH. ONE (11:45)
[2019-10-19] MEDS ORDERED: BUPIVACAINE-EPI 0.5%-1:200000 MPF 30 ML VIAL. ONE (11:45)
[2019-10-19] MEDS ORDERED: BISACODYL 10 MG SUPP.RECT. ONE (11:45)
[2019-10-19] MEDS ORDERED: IOHEXOL 300 MG/ML 50 ML VIAL. ONE (11:45)
[2019-10-19] MEDS ORDERED: DEXAMETHASONE SOD PHOS 4 MG/ML VIAL ONE (12:28)
[2019-10-19] MEDS ORDERED: ROCURONIUM 50 MG/5 ML VIAL. ONE (12:28)
[2019-10-19] MEDS ORDERED: fentaNYL PF VIAL 100 MCG/2 ML VIAL ONE (12:28)
[2019-10-19] MEDS ORDERED: SUCCINYLCHOLINE 200 MG/10 ML VIAL. ONE (12:28)
[2019-10-19] MEDS ORDERED: PROPOFOL 10 MG/ML (20ML) VIAL. IV ONE (12:28)
[2019-10-19] MEDS ORDERED: ONDANSETRON PF 4 MG/2 ML VIAL. ONE (12:28)
[2019-10-19] MEDS ORDERED: LIDOCAINE 2% PF 5 ML VIAL. ONE (12:28)
--- NOTE | 2019-10-19 13:21 | PDOC ---
SURGICAL PROGRESS NOTE Subjective Pre-Op Note 74 yo M with gallstone pancreatitis. Pt improved with some improvement in enzymes. TO OR for laparoscopic versus open cholecystectomy with cholangiogram. R/R/B/A d/w pt. Risks, including, but not limited to: bleeding, infection, damage to surrounding structures, risk of anesthesia, risk of open. He appears to understand, his questions are answered and he elects to proceed. Vital Signs Vital Signs Date Time Temp Pulse Resp B/P (MAP) Pulse Ox O2 Delivery O2 Flow Rate FiO2 10/19/19 10:57 98.2 83 18 118/51 (73) 96 Room Air 98.2 Labs Laboratory Tests Test 10/18/19 03:10 10/18/19 07:00 10/19/19 05:13 White Blood Count 13.4 x10^3/uL (4.0-11.0) 10.6 x10^3/uL (4.0-11.0) Red Blood Count 3.69 x10^6/uL (4.30-5.70) 3.59 x10^6/uL (4.30-5.70) Hemoglobin 12.3 g/dL (13.0-17.5) 12.1 g/dL (13.0-17.5) Hematocrit 36.5 % (39.0-53.0) 35.6 % (39.0-53.0) Mean Corpuscular Volume 99 fL (79-100) 99 fL (79-100) Mean Corpuscular Hemoglobin 33 pg (25-35) 34 pg (25-35) Mean Corpuscular Hemoglobin Concent 34 g/dL (31-37) 34 g/dL (31-37) Red Cell Distribution Width 13.8 % (11.5-14.5) 13.8 % (11.5-14.5) Platelet Count 206 x10^3/uL (140-400) 208 x10^3/uL (140-400) Neutrophils (%) (Auto) 82 % (31-73) 78 % (31-73) Lymphocytes (%) (Auto) 8 % (24-48) 10 % (24-48) Monocytes (%) (Auto) 9 % (0-9) 11 % (0-9) Eosinophils (%) (Auto) 0 % (0-3) 1 % (0-3) Basophils (%) (Auto) 0 % (0-3) 1 % (0-3) Neutrophils # (Auto) 11.1 x10^3/uL (1.8-7.7) 8.3 x10^3/uL (1.8-7.7) Lymphocytes # (Auto) 1.1 x10^3/uL (1.0-4.8) 1.1 x10^3/uL (1.0-4.8) Monocytes # (Auto) 1.3 x10^3/uL (0.0-1.1) 1.2 x10^3/uL (0.0-1.1) Eosinophils # (Auto) 0.0 x10^3/uL (0.0-0.7) 0.1 x10^3/uL (0.0-0.7) Basophils # (Auto) 0.0 x10^3/uL (0.0-0.2) 0.1 x10^3/uL (0.0-0.2) Sodium Level 136 mmol/L (136-145) 137 mmol/L (136-145) Potassium Level 3.3 mmol/L (3.5-5.1) 4.0 mmol/L (3.5-5.1) Chloride Level 101 mmol/L (98-107) 101 mmol/L (98-107) Carbon Dioxide Level 25 mmol/L (21-32) 23 mmol/L (21-32) Anion Gap 10 (6-14) 13 (6-14) Blood Urea Nitrogen 11 mg/dL (8-26) 10 mg/dL (8-26) Creatinine 1.0 mg/dL (0.7-1.3) 0.8 mg/dL (0.7-1.3) Estimated GFR (Cockcroft-Gault) 73.5 95.0 BUN/Creatinine Ratio 11 (6-20) 13 (6-20) Glucose Level 118 mg/dL (70-99) 114 mg/dL (70-99) Calcium Level 7.9 mg/dL (8.5-10.1) 7.9 mg/dL (8.5-10.1) Total Bilirubin 1.3 mg/dL (0.2-1.0) 0.9 mg/dL (0.2-1.0) Aspartate Amino Transf (AST/SGOT) 52 U/L (15-37) 37 U/L (15-37) Alanine Aminotransferase (ALT/SGPT) 151 U/L (16-63) 116 U/L (16-63) Alkaline Phosphatase 80 U/L (46-116) 100 U/L (46-116) Total Protein 6.7 g/dL (6.4-8.2) 6.2 g/dL (6.4-8.2) Albumin 2.8 g/dL (3.4-5.0) 2.7 g/dL (3.4-5.0) Albumin/Globulin Ratio 0.7 (1.0-1.7) 0.8 (1.0-1.7) Lipase 600 U/L (73-393) Coronavirus (COVID-19)(PCR) Negative (NEGATIVE) Laboratory Tests Test 10/19/19 05:13 White Blood Count 10.6 x10^3/uL (4.0-11.0) Red Blood Count 3.59 x10^6/uL (4.30-5.70) Hemoglobin 12.1 g/dL (13.0-17.5) Hematocrit 35.6 % (39.0-53.0) Mean Corpuscular Volume 99 fL (79-100) Mean Corpuscular Hemoglobin 34 pg (25-35) Mean Corpuscular Hemoglobin Concent 34 g/dL (31-37) Red Cell Distribution Width 13.8 % (11.5-14.5) Platelet Count 208 x10^3/uL (140-400) Neutrophils (%) (Auto) 78 % (31-73) Lymphocytes (%) (Auto) 10 % (24-48) Monocytes (%) (Auto) 11 % (0-9) Eosinophils (%) (Auto) 1 % (0-3) Basophils (%) (Auto) 1 % (0-3) Neutrophils # (Auto) 8.3 x10^3/uL (1.8-7.7) Lymphocytes # (Auto) 1.1 x10^3/uL (1.0-4.8) Monocytes # (Auto) 1.2 x10^3/uL (0.0-1.1) Eosinophils # (Auto) 0.1 x10^3/uL (0.0-0.7) Basophils # (Auto) 0.1 x10^3/uL (0.0-0.2) Sodium Level 137 mmol/L (136-145) Potassium Level 4.0 mmol/L (3.5-5.1) Chloride Level 101 mmol/L (98-107) Carbon Dioxide Level 23 mmol/L (21-32) Anion Gap 13 (6-14) Blood Urea Nitrogen 10 mg/dL (8-26) Creatinine 0.8 mg/dL (0.7-1.3) Estimated GFR (Cockcroft-Gault) 95.0 BUN/Creatinine Ratio 13 (6-20) Glucose Level 114 mg/dL (70-99) Calcium Level 7.9 mg/dL (8.5-10.1) Total Bilirubin 0.9 mg/dL (0.2-1.0) Aspartate Amino Transf (AST/SGOT) 37 U/L (15-37) Alanine Aminotransferase (ALT/SGPT) 116 U/L (16-63) Alkaline Phosphatase 100 U/L (46-116) Total Protein 6.2 g/dL (6.4-8.2) Albumin 2.7 g/dL (3.4-5.0) Albumin/Globulin Ratio 0.8 (1.0-1.7) Problem List Problems Medical Problems: (1) Chest pain Status: Acute (2) Leukocytosis Status: Acute (3) Pancreatitis Status: Acute (4) Serum lipase elevation Status: Acute Justicifation of Admission Dx: Justifications for Admission: Justification of Admission Dx: Yes JOEY GUTIERREZ MD Oct 19, 2019 13:21
[2019-10-19] MEDS ORDERED: PHENYLEPHRINE in 0.9% NACL PF 1 MG/10 ML SYRINGE. IV ONE (14:18)
[2019-10-19] MEDS ORDERED: SEVOFLURANE 61 TO 120 MINUTES. IH ONE (14:18)
[2019-10-19] MEDS ORDERED: NEOSTIGMINE METHYLSULFATE 5 MG/5 ML SYRINGE. ONE (14:18)
[2019-10-19] MEDS ORDERED: GLYCOPYRROLATE 1 MG/5 ML VIAL. ONE (14:18)
--- NOTE | 2019-10-19 15:00 | RAD ---
Examination: CHOLANGIOGRAM INTRAOPERATIVE History: Reason: CHOLANGIOGRAMS IN OR WITH C-ARM,FL TIME =.13 MIN. 3 IMAGES / Spl. Instructions: / History: Comparison/Correlation: 10/17/2019 CT abdomen and pelvis with contrast Findings: A total of 3 images were obtained by fluoroscopy intraoperatively. Fluoroscopy was utilized for 0.13 minutes. The common bile duct distends normally with contrast. No suspicious filling defect. No significant intrahepatic biliary dilatation. Cholecystectomy noted. Contrast is noted within the pancreatic duct near the small bowel. Impression: Common duct is unremarkable with no stricture or suspicious filling defect. Electronically signed by: Michele Burnett MD (10/19/2019 2:58 PM) [id number]
[2019-10-19] MEDS: IV NORMAL SALINE 1000ML BAG 1,000 ML IV SCH (15:20)
--- NOTE | 2019-10-19 15:28 | PDOC4 ---
OPERATIVE NOTE Date: Date: Oct 19, 2019 Pre-Op Diagnosis: Pancreatitis, cholecystitis Post-Op Diagnosis: same Procedure Performed: laparoscopic cholecystectomy with cholangiogram Surgeon: Maycol Gutierrez Anesthesia Type: GETA plus local Blood Loss: 10 Specimans Obtained: gallbladder Findings: grossly normal gallbladder, no obvious pathology, normal cholangiogram Complications: none Operative Note: After obtaining informed consent, patient was taken to OR, induced under GETA and prepped in the usual fashion. 5 mm ports placed umbilical and RUQ, 12 port placed epigastric, all under laparoscopic guidance. Abdominal cavity was explored and otherwise normal. Gallbladder was grasped. Harrah of calot exposed and critical view dissected out. Cystic artery ligated with clips. Cystic duct was only structure left and cholangiogram was obtained which was normal, although aberrant anatomy with cystic duct coming off right hepatic duct. Cystic duct was ligated with clips and hemolok. Gallbladder was removed, placed in bag, delivered and sent to pathology. Copious irrigation. No evidence of bleeding or other pathology noted. Port removed without bleeding. Fascia repaired with 0 vicryl. Skin repaired with 4 0 monocryl. Dressing placed. Patient tolerated procedure well and sent to PACU in stable condition. All counts correct. Wound class is 2. JOEY GUTIERREZ MD Oct 19, 2019 15:28
[2019-10-19] MEDS ORDERED: NALOXONE 0.4 MG/ML VIAL. IV PRN (15:30)
[2019-10-19] MEDS ORDERED: 0.9 % SODIUM CHLORIDE 10 ML DISP.SYRIN. IV PRN (15:30)
[2019-10-19] MEDS ORDERED: DEXTROSE 50% 25 GM / 50ML DISP.SYRIN. IV PRN (15:30)
[2019-10-19] MEDS: IV RINGERS,LACTATED 1000ML 1,000 ML IV SCH (15:34)
[2019-10-19] MEDS: TAMSULOSIN 0.4 MG CAP.ER.24H. PO SCH (22:16)
[2019-10-19] MEDS: DOCUSATE SODIUM 100 MG CAPSULE. PO SCH (22:16)
[2019-10-19] MEDS: HYDROcodone/APAP 5/325MG 1 TAB TABLET PO PRN (22:24)
[2019-10-20] MEDS: PIPERACILLIN/TAZOBACTAM 3.375 GM in IV NORMAL SALINE 50ML 50 ML IV SCH ×5 (00:48→23:36)
[2019-10-20] MEDS: ENOXAPARIN 40 MG/0.4 ML SYRINGE. SQ SCH ×2 (01:03→20:45)
[2019-10-20] MEDS: POTASSIUM CL 20MEQ D5-0.45NACL 1,000 ML IV SCH ×3 (03:30→23:30)
[2019-10-20 03:47] VITALS: BP 114/53
[2019-10-20] MEDS: IV RINGERS,LACTATED 1000ML 1,000 ML IV SCH ×3 (05:50→23:36)
[2019-10-20 07:22] VITALS: BP 142/68
[2019-10-20] MEDS: IV NORMAL SALINE 1000ML BAG 1,000 ML IV SCH (07:37)
[2019-10-20] MEDS: DOCUSATE SODIUM 100 MG CAPSULE. PO SCH ×2 (08:15→20:44)
--- NOTE | 2019-10-20 08:49 | PDOC ---
PROGRESS NOTES Chief Complaint Chief Complaint IMPRESSION Acute pancreatitis - // gallstone pancreatitis, normal triglycerides. no meds, no ETOH use. NPO, consult surgery and GI Epigastric abdominal pain - 2/2 above, cholecystitis may also be present. 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 Underlying mass not excluded. FEN - NPO PPX - lovenox DNR/DNI Dispo - inpatient for 2 midnights gi consulted pursue cholecystectomy. Don't feel EGD needed at this point. Could consider screening colonoscopy. COVID-19 SCREEN TO OR for laparoscopic versus open cholecystectomy with cholangiogram. 10/18 pod # 1 27 min pt exam, chart review, > 50% of time spent with exam, chart review, pt care coordination History of Present Illness History of Present Illness Mr Parra is a 74yo M resident of [facility] w/ PMHx arthritis, HLD, CVA 2006 with left sided weakness who presents with complaints of epigastric abdominal pain starting 2 hours prior to ED visit. Rates this pressure feeling at a 7/10 as a "gas" feeling. Has nausea. Patient denies shortness of breath, diaphoresis, diarrhea. No chest pain. Patient denies any recent fever chills or changes in vision. Patient denies any nasal congestion or sore throat. No changes in his stool habits. Patient denies any problems urinating. Patient denies any back or joint pains or any skin rashes. Patient denies any weaknesses that have changed since his stroke recovery. Patient denies history of EtOH, is a nondrinker, quit smoking in 2019. WBC 17.4, Hb 13.8, Platelets 257, Na 140, K 3.5, BUN 12, Cr. 1.1, Troponin negative x 2, AST 436, ALT 352, and Lipase 29,956. EKG NSR, no stemi. CXR clear. RUQ US with gallbladder wall thickening. no visualization of CBD. Admitted for further treatment. CT abdomen showed acute pancreatitis, suspected mild gallbladder wall thickening, no apparent biliary ductal dilatation or choledocholithiasis and distended urinary bladder with mild diffuse bladder wall thickening, right UVJ without evidence of right-sided hydronephrosis which could represent a small nonobstructing UVJ calculus or a nonspecific bladder wall calcification. Lipase improved to 4667. Afebrile. Still with diffuse abdominal pain and decreased appetite. Vitals Vitals Vital Signs Date Time Temp Pulse Resp B/P (MAP) Pulse Ox O2 Delivery O2 Flow Rate FiO2 10/20/19 07:39 Room Air 10/20/19 07:22 98.4 91 19 142/68 (92) 94 98.4 10/19/19 14:50 8 Physical Exam General: Alert, Oriented X3, Cooperative, No acute distress Lungs: Clear Abdomen: Normal bowel sounds, Soft, Other (mild ttp epigastric ) Extremities: No clubbing, No cyanosis Skin: No rashes, No breakdown Assessment and Plan Assessmemt and Plan Problems Medical Problems: (1) Chest pain Status: Acute (2) Leukocytosis Status: Acute (3) Pancreatitis Status: Acute (4) Serum lipase elevation Status: Acute Comment Review of Relevant I have reviewed the following items sarah (where applicable) has been applied. Labs Laboratory Tests Test 10/19/19 05:13 White Blood Count 10.6 x10^3/uL (4.0-11.0) Red Blood Count 3.59 x10^6/uL (4.30-5.70) Hemoglobin 12.1 g/dL (13.0-17.5) Hematocrit 35.6 % (39.0-53.0) Mean Corpuscular Volume 99 fL (79-100) Mean Corpuscular Hemoglobin 34 pg (25-35) Mean Corpuscular Hemoglobin Concent 34 g/dL (31-37) Red Cell Distribution Width 13.8 % (11.5-14.5) Platelet Count 208 x10^3/uL (140-400) Neutrophils (%) (Auto) 78 % (31-73) Lymphocytes (%) (Auto) 10 % (24-48) Monocytes (%) (Auto) 11 % (0-9) Eosinophils (%) (Auto) 1 % (0-3) Basophils (%) (Auto) 1 % (0-3) Neutrophils # (Auto) 8.3 x10^3/uL (1.8-7.7) Lymphocytes # (Auto) 1.1 x10^3/uL (1.0-4.8) Monocytes # (Auto) 1.2 x10^3/uL (0.0-1.1) Eosinophils # (Auto) 0.1 x10^3/uL (0.0-0.7) Basophils # (Auto) 0.1 x10^3/uL (0.0-0.2) Sodium Level 137 mmol/L (136-145) Potassium Level 4.0 mmol/L (3.5-5.1) Chloride Level 101 mmol/L (98-107) Carbon Dioxide Level 23 mmol/L (21-32) Anion Gap 13 (6-14) Blood Urea Nitrogen 10 mg/dL (8-26) Creatinine 0.8 mg/dL (0.7-1.3) Estimated GFR (Cockcroft-Gault) 95.0 BUN/Creatinine Ratio 13 (6-20) Glucose Level 114 mg/dL (70-99) Calcium Level 7.9 mg/dL (8.5-10.1) Total Bilirubin 0.9 mg/dL (0.2-1.0) Aspartate Amino Transf (AST/SGOT) 37 U/L (15-37) Alanine Aminotransferase (ALT/SGPT) 116 U/L (16-63) Alkaline Phosphatase 100 U/L (46-116) Total Protein 6.2 g/dL (6.4-8.2) Albumin 2.7 g/dL (3.4-5.0) Albumin/Globulin Ratio 0.8 (1.0-1.7) Microbiology 10/17/19 Blood Culture - Preliminary, Resulted NO GROWTH AFTER 3 DAYS Medications Current Medications Aspirin (Aspirin Chewable) 324 mg 1X ONCE PO Last administered on 10/16/19at 12:09; Start 10/16/19 at 12:15; Stop 10/16/19 at 12:16; Status DC Multi-Ingredient Mouthwash/Gargle (Gi Cocktail) 20 ml 1X ONCE SWSW Last administered on 10/16/19at 12:53; Start 10/16/19 at 13:00; Stop 10/16/19 at 13:01; Status DC Magnesium Sulfate/ Dextrose 100 ml @ 100 mls/hr 1X ONCE IV Last administered on 10/16/19at 21:35; Start 10/16/19 at 21:30; Stop 10/16/19 at 22:29; Status DC Potassium Chloride/Water 100 ml @ 100 mls/hr Q1H IV Last administered on 10/16/19at 21:33; Start 10/16/19 at 19:30; Stop 10/16/19 at 21:29; Status DC Potassium Chloride/Dextrose/ Sod Cl 1,000 ml @ 100 mls/hr Q10H IV Last administered on 10/19/19at 08:49; Start 10/16/19 at 19:30 Ondansetron HCl (Zofran) 4 mg PRN Q4HRS PRN IV NAUSEA/VOMITING; Start 10/16/19 at 18:45 Acetaminophen (Tylenol) 650 mg PRN Q4HRS PRN PO TEMP OVER 100.4F OR MILD PAIN; Start 10/16/19 at 18:45 Acetaminophen (Tylenol Supp) 650 mg PRN Q4HRS PRN MT TEMP OVER 100.4F OR MILD PAIN; Start 10/16/19 at 18:45 Enoxaparin Sodium (Lovenox 40mg Syringe) 40 mg Q24H SQ Last administered on 10/20/19at 01:03; Start 10/16/19 at 21:00 Piperacillin Sod/ Tazobactam Sod 3.375 gm/Sodium Chloride 50 ml @ 100 mls/hr Q6HRS IV Last administered on 10/20/19at 05:44; Start 10/17/19 at 00:00 Iohexol (Omnipaque 300 Mg/ml) 75 ml 1X ONCE IV Last administered on 10/17/19at 07:15; Start 10/17/19 at 07:15; Stop 10/17/19 at 07:16; Status DC Iohexol (Omnipaque 240 Mg/ml) 50 ml 1X ONCE PO Last administered on 10/17/19at 07:33; Start 10/17/19 at 07:15; Stop 10/17/19 at 07:16; Status DC Info (CONTRAST GIVEN -- Rx MONITORING) 1 each PRN DAILY PRN MC SEE COMMENTS; Start 10/17/19 at 07:15; Stop 10/19/19 at 07:14; Status DC Tamsulosin HCl (Flomax) 0.4 mg QHS PO Last administered on 10/19/19at 22:16; Start 10/17/19 at 21:00 Tamsulosin HCl (Flomax) 0.4 mg 1X ONCE PO Last administered on 10/17/19at 12:00; Start 10/17/19 at 10:00; Stop 10/17/19 at 10:01; Status DC Ondansetron HCl (Zofran) 4 mg PRN Q6HRS PRN IV NAUSEA/VOMITING; Start 10/19/19 at 07:00; Stop 10/19/19 at 15:38; Status DC Fentanyl Citrate (Fentanyl 2ml Vial) 25 mcg PRN Q5MIN PRN IV MILD PAIN 1-3; Start 10/19/19 at 07:00; Stop 10/19/19 at 15:38; Status DC Fentanyl Citrate (Fentanyl 2ml Vial) 50 mcg PRN Q5MIN PRN IV MODERATE TO SEVERE PAIN; Start 10/19/19 at 07:00; Stop 10/19/19 at 15:38; Status DC Morphine Sulfate (Morphine Sulfate) 1 mg PRN Q10MIN PRN IV SEVERE PAIN 7-10; Start 10/19/19 at 07:00; Stop 10/19/19 at 15:38; Status DC Ringer's Solution 1,000 ml @ 30 mls/hr Q24H IV Last administered on 10/19/19at 13:15; Start 10/19/19 at 07:00; Stop 10/19/19 at 15:38; Status DC Lidocaine HCl (Xylocaine-Mpf 1% 2ml Vial) 2 ml PRN 1X PRN ID PRIOR TO IV START; Start 10/19/19 at 07:00; Stop 10/19/19 at 15:38; Status DC Hydromorphone HCl (Dilaudid) 0.5 mg PRN Q10MIN PRN IV SEV PAIN, Second choice; Start 10/19/19 at 07:00; Stop 10/19/19 at 15:38; Status DC Prochlorperazine Edisylate (Compazine) 5 mg PACU PRN PRN IV NAUSEA, MRX1; Start 10/19/19 at 07:00; Stop 10/19/19 at 15:38; Status DC Heparin Sodium (Porcine) 1000 unit/Sodium Chloride 1,001 ml @ 1,001 mls/hr 1X ONCE IRR Last administered on 10/19/19at 13:59; Start 10/19/19 at 08:50; Stop 10/19/19 at 09:49; Status DC Bupivacaine HCl/ Epinephrine Bitart (Sensorcain-Epi 0.5%-1:912436 Mpf) 30 ml STK-MED ONCE .ROUTE Last administered on 10/19/19at 13:59; Start 10/19/19 at 11:45; Stop 10/19/19 at 13:31; Status DC Cellulose (Surgicel Hemostat 2x14) 1 each STK-MED ONCE .ROUTE ; Start 10/19/19 at 11:45; Stop 10/19/19 at 13:31; Status DC Iohexol (Omnipaque 300 Mg/ml) 50 ml STK-MED ONCE .ROUTE Last administered on 10/19/19at 13:59; Start 10/19/19 at 11:45; Stop 10/19/19 at 13:31; Status DC Bisacodyl (Dulcolax Supp) 10 mg STK-MED ONCE .ROUTE ; Start 10/19/19 at 11:45; Stop 10/19/19 at 13:31; Status DC Propofol (Diprivan) 200 mg STK-MED ONCE IV ; Start 10/19/19 at 12:28; Stop 10/19/19 at 13:32; Status DC Lidocaine HCl (Lidocaine Pf 2% Vial) 5 ml STK-MED ONCE .ROUTE ; Start 10/19/19 at 12:28; Stop 10/19/19 at 13:32; Status DC Ondansetron HCl (Zofran) 4 mg STK-MED ONCE .ROUTE ; Start 10/19/19 at 12:28; Stop 10/19/19 at 13:32; Status DC Dexamethasone Sodium Phosphate (Decadron) 4 mg STK-MED ONCE .ROUTE ; Start 10/19/19 at 12:28; Stop 10/19/19 at 13:32; Status DC Succinylcholine Chloride (Anectine) 200 mg STK-MED ONCE .ROUTE ; Start 10/19/19 at 12:28; Stop 10/19/19 at 13:32; Status DC Rocuronium [place] (Zemuron) 50 mg STK-MED ONCE .ROUTE ; Start 10/19/19 at 12:28; Stop 10/19/19 at 13:32; Status DC Fentanyl Citrate (Fentanyl 2ml Vial) 100 mcg STK-MED ONCE .ROUTE ; Start 10/19/19 at 12:28; Stop 10/19/19 at 13:32; Status DC Neostigmine [place] (Neostigmine Methylsulfate) 5 mg STK-MED ONCE .ROUTE ; Start 10/19/19 at 14:18; Stop 10/19/19 at 14:18; Status DC Glycopyrrolate (Robinul) 1 mg STK-MED ONCE .ROUTE ; Start 10/19/19 at 14:18; Stop 10/19/19 at 14:18; Status DC Phenylephrine HCl (PHENYLEPHRINE in 0.9% NACL PF) 1 mg STK-MED ONCE IV ; Start 10/19/19 at 14:18; Stop 10/19/19 at 14:18; Status DC Sevoflurane (Ultane) 60 ml STK-MED ONCE IH ; Start 10/19/19 at 14:18; Stop 10/19/19 at 14:18; Status DC Sodium Chloride (Normal Saline Flush) 3 ml QSHIFT PRN IV AFTER MEDS AND BLOOD DRAWS; Start 10/19/19 at 15:30 Ringer's Solution 1,000 ml @ 100 mls/hr Q10H IV Last administered on 10/20/19at 05:50; Start 10/19/19 at 15:20 Dextrose (Dextrose 50%-Water Syringe) 12.5 gm PRN Q15MIN PRN IV SEE COMMENTS; Start 10/19/19 at 15:30 Acetaminophen/ Hydrocodone Bitart (Lortab 5/325) 1 tab PRN Q4HRS PRN PO MILD PAIN 1-3 Last administered on 10/19/19at 22:24; Start 10/19/19 at 15:30 Naloxone HCl (Narcan) 0.4 mg PRN Q2MIN PRN IV SEE INSTRUCTIONS; Start 10/19/19 at 15:30 Sodium Chloride 1,000 ml @ 25 mls/hr Q24H IV ; Start 10/19/19 at 15:20 Docusate Sodium (Colace) 100 mg BID PO Last administered on 10/20/19at 08:15; Start 10/19/19 at 20:00 Vitals/I & O Vital Sign - Last 24 Hours 10/19/19 10/19/19 10/19/19 10/19/19 10:57 12:58 14:35 14:35 Temp 98.2 98.3 98.3 98.2 98.3 98.3 Pulse 83 82 111 Resp 18 17 22 B/P (MAP) 118/51 (73) 153/67 170/81 Pulse Ox 96 98 100 O2 Delivery Room Air Room Air Simple Mask Mask O2 Flow Rate 8 8 10/19/19 10/19/19 10/19/19 10/19/19 14:50 15:00 15:00 15:15 Temp 97.8 97.8 Pulse 102 106 95 Resp 17 18 18 B/P (MAP) 152/56 156/70 (98) 143/59 (87) Pulse Ox 100 92 91 O2 Delivery Simple Mask Room Air Room Air Room Air O2 Flow Rate 8 10/19/19 10/19/19 10/19/19 10/19/19 15:45 16:00 16:30 17:00 Pulse 91 92 88 88 Resp 18 18 18 18 B/P (MAP) 146/68 (94) 140/62 (88) 140/69 (92) 140/67 (91) Pulse Ox 91 90 90 92 O2 Delivery Room Air Room Air Room Air Room Air 10/19/19 10/19/19 10/19/19 10/19/19 19:47 20:00 22:24 23:24 Temp 98.5 98.5 Pulse 93 Resp 16 18 18 B/P (MAP) 111/63 (79) Pulse Ox 92 92 91 O2 Delivery Room Air Room Air Room Air Room Air 10/19/19 10/20/19 10/20/19 10/20/19 23:43 03:47 07:22 07:39 Temp 98.8 98.4 98.4 98.8 98.4 98.4 Pulse 74 72 91 Resp 16 16 19 B/P (MAP) 127/67 (87) 114/53 (73) 142/68 (92) Pulse Ox 91 95 94 O2 Delivery Room Air Room Air Room Air Room Air Intake and Output 10/19/19 10/19/19 10/20/19 15:00 23:00 07:00 Intake Total 700 ml 350 ml 240 ml Output Total 510 ml 200 ml 1150 ml Balance 190 ml 150 ml -910 ml Justicifation of Admission Dx: Justifications for Admission: Justification of Admission Dx: Yes MANOJ LARSEN MD Oct 20, 2019 08:49
--- NOTE | 2019-10-20 09:50 | PDOC ---
Subjective: Subjective: Not getting very far, feels weak. No flatus/stool. Not just about nausea - "just weak." Took a couple bites of applesauce. Objective: Vital Signs: Vital Signs Date Time Temp Pulse Resp B/P (MAP) Pulse Ox O2 Delivery O2 Flow Rate FiO2 10/20/19 07:39 Room Air 10/20/19 07:22 98.4 91 19 142/68 (92) 94 98.4 10/19/19 14:50 8 Labs: BLOOD CULTURE Preliminary NO GROWTH AFTER 3 DAYS Imaging: IOC 10/18 Impression: Common duct is unremarkable with no stricture or suspicious filling defect. PE: GEN: NAD LUNGS: CTAB HEART: RRR ABD: occasional quit gurgle, incisional soreness NEURO/PSYCH: A & O 3, seems frustrated A/P: Pancreatitis s/p cholecystectomy -- Await GB pathology. Diet per surgery. Would probably benefit from therapy - defer to primary. Justicifation of Admission Dx: Justifications for Admission: Justification of Admission Dx: Yes DUYEN NORWOOD Oct 20, 2019 09:50
--- NOTE | 2019-10-20 10:04 | PDOC ---
SURGICAL PROGRESS NOTE Subjective feels weak pain is managed took a few bites of liquids for breakfast Vital Signs Vital Signs Date Time Temp Pulse Resp B/P (MAP) Pulse Ox O2 Delivery O2 Flow Rate FiO2 10/20/19 07:39 Room Air 10/20/19 07:22 98.4 91 19 142/68 (92) 94 98.4 10/19/19 14:50 8 I&O Intake and Output 10/20/19 07:00 Intake Total 1290 ml Output Total 1860 ml Balance -570 ml Intake Oral 590 ml IV Total 700 ml Output Urine Total 1850 ml Estimated Blood Loss 10 ml General: Alert, Oriented X3, Cooperative, Other (frail ) Abdomen: Soft, Other (dressings dry) Labs Laboratory Tests Test 10/19/19 05:13 White Blood Count 10.6 x10^3/uL (4.0-11.0) Red Blood Count 3.59 x10^6/uL (4.30-5.70) Hemoglobin 12.1 g/dL (13.0-17.5) Hematocrit 35.6 % (39.0-53.0) Mean Corpuscular Volume 99 fL (79-100) Mean Corpuscular Hemoglobin 34 pg (25-35) Mean Corpuscular Hemoglobin Concent 34 g/dL (31-37) Red Cell Distribution Width 13.8 % (11.5-14.5) Platelet Count 208 x10^3/uL (140-400) Neutrophils (%) (Auto) 78 % (31-73) Lymphocytes (%) (Auto) 10 % (24-48) Monocytes (%) (Auto) 11 % (0-9) Eosinophils (%) (Auto) 1 % (0-3) Basophils (%) (Auto) 1 % (0-3) Neutrophils # (Auto) 8.3 x10^3/uL (1.8-7.7) Lymphocytes # (Auto) 1.1 x10^3/uL (1.0-4.8) Monocytes # (Auto) 1.2 x10^3/uL (0.0-1.1) Eosinophils # (Auto) 0.1 x10^3/uL (0.0-0.7) Basophils # (Auto) 0.1 x10^3/uL (0.0-0.2) Sodium Level 137 mmol/L (136-145) Potassium Level 4.0 mmol/L (3.5-5.1) Chloride Level 101 mmol/L (98-107) Carbon Dioxide Level 23 mmol/L (21-32) Anion Gap 13 (6-14) Blood Urea Nitrogen 10 mg/dL (8-26) Creatinine 0.8 mg/dL (0.7-1.3) Estimated GFR (Cockcroft-Gault) 95.0 BUN/Creatinine Ratio 13 (6-20) Glucose Level 114 mg/dL (70-99) Calcium Level 7.9 mg/dL (8.5-10.1) Total Bilirubin 0.9 mg/dL (0.2-1.0) Aspartate Amino Transf (AST/SGOT) 37 U/L (15-37) Alanine Aminotransferase (ALT/SGPT) 116 U/L (16-63) Alkaline Phosphatase 100 U/L (46-116) Total Protein 6.2 g/dL (6.4-8.2) Albumin 2.7 g/dL (3.4-5.0) Albumin/Globulin Ratio 0.8 (1.0-1.7) Problem List Problems Medical Problems: (1) Chest pain Status: Acute (2) Leukocytosis Status: Acute (3) Pancreatitis Status: Acute (4) Serum lipase elevation Status: Acute Assessment/Plan s/p david diet as tolerated ambulate dc planning can dc when medically ready Justicifation of Admission Dx: Justifications for Admission: Justification of Admission Dx: Yes CHRISTOPHER WELLS [employer]AF[employer]Y RISK LEAD Oct 20, 2019 10:04
[2019-10-20 11:23] VITALS: BP 122/57
[2019-10-20] MEDS: LACTOBACILLUS RHAMNOSUS GG 1 CAPSULE. PO SCH ×2 (12:12→20:44)
[2019-10-20 15:06] VITALS: BP 133/65
--- NOTE | 2019-10-20 15:39 | NUR ---
SW following. Discussed with RN, PT/OT recommending SNU. SW met with pt (no isolation precautions at the time), pt does not want to go to SNU. Pt agreeable to home health, does not have a preference for provider. SW checked with [facility] because they see a lot of people at [facility], they are short staffed this week, but will review since the pt lives at [facility]. SW faxed referral to [facility]. SW awaiting response from [facility] about whether they take pt's insurance or not. SW awaiting acceptance decision from [facility]. RN notified.
[2019-10-20 19:00] VITALS: BP 127/56
[2019-10-20] MEDS: TAMSULOSIN 0.4 MG CAP.ER.24H. PO SCH (20:44)
[2019-10-20] MEDS: HYDROcodone/APAP 5/325MG 1 TAB TABLET PO PRN (20:47)
[2019-10-20 23:00] VITALS: BP 123/62
--- NOTE | 2019-10-20 23:29 | NUR ---
MED ADMINISTRATION NOTE: Spoke with GIN Gallegos about Zosyn compatibility with LR since Micromedex resulted "uncertain." States that the two medications are compatible. Will pass along to day RN.
[2019-10-21 03:00] VITALS: BP 109/63
[2019-10-21 03:49] LABS: BASO % 0 % (0-3); EOS # 0.1 x10^3/uL (0.0-0.7); EOS % 1 % (0-3); HEMATOCRIT 29.8 % (39.0-53.0); HEMOGLOBIN 10.2 g/dL (13.0-17.5); LYMPH % 23 % (24-48); MEAN CORPUSCULAR HEMOGLOBIN 34 pg (25-35); MEAN CORPUSCULAR HGB CONC 34 g/dL (31-37); MEAN CORPUSCULAR VOLUME 99 fL (79-100); MONO # 1.1 x10^3/uL (0.0-1.1); MONO % 13 % (0-9); NEUT # 5.5 x10^3/uL (1.8-7.7); NEUT % 63 % (31-73); PLATELET COUNT 205 x10^3/uL (140-400); RED BLOOD COUNT 3.02 x10^6/uL (4.30-5.70); RED CELL DISTRIBUTION WIDTH 13.3 % (11.5-14.5); WHITE BLOOD COUNT 8.7 x10^3/uL (4.0-11.0)
[2019-10-21 04:07] LABS: ALBUMIN 1.9 g/dL (3.4-5.0); ALBUMIN/GLOBULIN RATIO 0.6 (1.0-1.7); CALCIUM 7.3 mg/dL (8.5-10.1); CREATININE 0.8 mg/dL (0.7-1.3); POTASSIUM 3.1 mmol/L (3.5-5.1); TOTAL BILIRUBIN 0.5 mg/dL (0.2-1.0); TOTAL PROTEIN 5.3 g/dL (6.4-8.2)
[2019-10-21] MEDS: PIPERACILLIN/TAZOBACTAM 3.375 GM in IV NORMAL SALINE 50ML 50 ML IV SCH ×4 (06:26→23:38)
[2019-10-21 07:00] VITALS: BP 90/55
[2019-10-21] MEDS: IV RINGERS,LACTATED 1000ML 1,000 ML IV SCH ×2 (07:20→16:05)
[2019-10-21] MEDS: POTASSIUM CL 20MEQ D5-0.45NACL 1,000 ML IV SCH ×2 (07:37→17:41)
[2019-10-21] MEDS: DOCUSATE SODIUM 100 MG CAPSULE. PO SCH ×2 (07:37→20:58)
[2019-10-21] MEDS: LACTOBACILLUS RHAMNOSUS GG 1 CAPSULE. PO SCH ×2 (07:37→20:58)
--- NOTE | 2019-10-21 08:25 | PDOC ---
PROGRESS NOTES Chief Complaint Chief Complaint IMPRESSION Acute pancreatitis - // gallstone pancreatitis, normal triglycerides. no meds, no ETOH use. NPO, consult surgery and GI Epigastric abdominal pain - 2/2 above, cholecystitis may also be present. 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 Underlying mass not excluded. FEN - NPO PPX - lovenox DNR/DNI Dispo - inpatient for 2 midnights gi consulted pursue cholecystectomy. Don't feel EGD needed at this point. Could consider screening colonoscopy. COVID-19 SCREEN TO OR for laparoscopic versus open cholecystectomy with cholangiogram. 7 pod # 2 7/16 poor appetite, weak 27 min pt exam, chart review, > 50% of time spent with exam, chart review, pt care coordination History of Present Illness History of Present Illness Mr Parra is a 74yo M resident of [facility] w/ PMHx arthritis, HLD, CVA 2006 with left sided weakness who presents with complaints of epigastric abdominal pain starting 2 hours prior to ED visit. Rates this pressure feeling at a 7/10 as a "gas" feeling. Has nausea. Patient denies shortness of breath, diaphoresis, diarrhea. No chest pain. Patient denies any recent fever chills or changes in vision. Patient denies any nasal congestion or sore throat. No changes in his stool habits. Patient denies any problems urinating. Patient denies any back or joint pains or any skin rashes. Patient denies any weaknesses that have changed since his stroke recovery. Patient denies history of EtOH, is a nondrinker, quit smoking in 2019. WBC 17.4, Hb 13.8, Platelets 257, Na 140, K 3.5, BUN 12, Cr. 1.1, Troponin negative x 2, AST 436, ALT 352, and Lipase 29,956. EKG NSR, no stemi. CXR clear. RUQ US with gallbladder wall thickening. no visualization of CBD. Admitted for further treatment. CT abdomen showed acute pancreatitis, suspected mild gallbladder wall thickening, no apparent biliary ductal dilatation or choledocholithiasis and distended urinary bladder with mild diffuse bladder wall thickening, right UVJ without evidence of right-sided hydronephrosis which could represent a small nonobstructing UVJ calculus or a nonspecific bladder wall calcification. Lipase improved to 4667. Afebrile. Still with diffuse abdominal pain and decreased appetite. Vitals Vitals Vital Signs Date Time Temp Pulse Resp B/P (MAP) Pulse Ox O2 Delivery O2 Flow Rate FiO2 10/21/19 07:00 98.6 64 18 90/55 (67) 92 Room Air 98.6 Physical Exam General: Alert, Oriented X3, Cooperative, No acute distress, Other (frail ) Heart: Regular rate, Normal S1, Normal S2, No murmurs Lungs: Clear Abdomen: Normal bowel sounds, Soft, No tenderness, Other (dressing dry intact) Extremities: No clubbing, No cyanosis Skin: No rashes, No breakdown Labs LABS Laboratory Tests Test 10/21/19 02:35 White Blood Count 8.7 x10^3/uL (4.0-11.0) Red Blood Count 3.02 x10^6/uL (4.30-5.70) Hemoglobin 10.2 g/dL (13.0-17.5) Hematocrit 29.8 % (39.0-53.0) Mean Corpuscular Volume 99 fL (79-100) Mean Corpuscular Hemoglobin 34 pg (25-35) Mean Corpuscular Hemoglobin Concent 34 g/dL (31-37) Red Cell Distribution Width 13.3 % (11.5-14.5) Platelet Count 205 x10^3/uL (140-400) Neutrophils (%) (Auto) 63 % (31-73) Lymphocytes (%) (Auto) 23 % (24-48) Monocytes (%) (Auto) 13 % (0-9) Eosinophils (%) (Auto) 1 % (0-3) Basophils (%) (Auto) 0 % (0-3) Neutrophils # (Auto) 5.5 x10^3/uL (1.8-7.7) Lymphocytes # (Auto) 2.0 x10^3/uL (1.0-4.8) Monocytes # (Auto) 1.1 x10^3/uL (0.0-1.1) Eosinophils # (Auto) 0.1 x10^3/uL (0.0-0.7) Basophils # (Auto) 0.0 x10^3/uL (0.0-0.2) Sodium Level 136 mmol/L (136-145) Potassium Level 3.1 mmol/L (3.5-5.1) Chloride Level 101 mmol/L (98-107) Carbon Dioxide Level 25 mmol/L (21-32) Anion Gap 10 (6-14) Blood Urea Nitrogen 12 mg/dL (8-26) Creatinine 0.8 mg/dL (0.7-1.3) Estimated GFR (Cockcroft-Gault) 95.0 BUN/Creatinine Ratio 15 (6-20) Glucose Level 70 mg/dL (70-99) Calcium Level 7.3 mg/dL (8.5-10.1) Total Bilirubin 0.5 mg/dL (0.2-1.0) Aspartate Amino Transf (AST/SGOT) 89 U/L (15-37) Alanine Aminotransferase (ALT/SGPT) 137 U/L (16-63) Alkaline Phosphatase 80 U/L (46-116) Total Protein 5.3 g/dL (6.4-8.2) Albumin 1.9 g/dL (3.4-5.0) Albumin/Globulin Ratio 0.6 (1.0-1.7) Assessment and Plan Assessmemt and Plan Problems Medical Problems: (1) Chest pain Status: Acute (2) Leukocytosis Status: Acute (3) Pancreatitis Status: Acute (4) Serum lipase elevation Status: Acute Comment Review of Relevant I have reviewed the following items sarah (where applicable) has been applied. Labs Laboratory Tests Test 10/21/19 02:35 White Blood Count 8.7 x10^3/uL (4.0-11.0) Red Blood Count 3.02 x10^6/uL (4.30-5.70) Hemoglobin 10.2 g/dL (13.0-17.5) Hematocrit 29.8 % (39.0-53.0) Mean Corpuscular Volume 99 fL (79-100) Mean Corpuscular Hemoglobin 34 pg (25-35) Mean Corpuscular Hemoglobin Concent 34 g/dL (31-37) Red Cell Distribution Width 13.3 % (11.5-14.5) Platelet Count 205 x10^3/uL (140-400) Neutrophils (%) (Auto) 63 % (31-73) Lymphocytes (%) (Auto) 23 % (24-48) Monocytes (%) (Auto) 13 % (0-9) Eosinophils (%) (Auto) 1 % (0-3) Basophils (%) (Auto) 0 % (0-3) Neutrophils # (Auto) 5.5 x10^3/uL (1.8-7.7) Lymphocytes # (Auto) 2.0 x10^3/uL (1.0-4.8) Monocytes # (Auto) 1.1 x10^3/uL (0.0-1.1) Eosinophils # (Auto) 0.1 x10^3/uL (0.0-0.7) Basophils # (Auto) 0.0 x10^3/uL (0.0-0.2) Sodium Level 136 mmol/L (136-145) Potassium Level 3.1 mmol/L (3.5-5.1) Chloride Level 101 mmol/L (98-107) Carbon Dioxide Level 25 mmol/L (21-32) Anion Gap 10 (6-14) Blood Urea Nitrogen 12 mg/dL (8-26) Creatinine 0.8 mg/dL (0.7-1.3) Estimated GFR (Cockcroft-Gault) 95.0 BUN/Creatinine Ratio 15 (6-20) Glucose Level 70 mg/dL (70-99) Calcium Level 7.3 mg/dL (8.5-10.1) Total Bilirubin 0.5 mg/dL (0.2-1.0) Aspartate Amino Transf (AST/SGOT) 89 U/L (15-37) Alanine Aminotransferase (ALT/SGPT) 137 U/L (16-63) Alkaline Phosphatase 80 U/L (46-116) Total Protein 5.3 g/dL (6.4-8.2) Albumin 1.9 g/dL (3.4-5.0) Albumin/Globulin Ratio 0.6 (1.0-1.7) Laboratory Tests Test 10/21/19 02:35 White Blood Count 8.7 x10^3/uL (4.0-11.0) Red Blood Count 3.02 x10^6/uL (4.30-5.70) Hemoglobin 10.2 g/dL (13.0-17.5) Hematocrit 29.8 % (39.0-53.0) Mean Corpuscular Volume 99 fL (79-100) Mean Corpuscular Hemoglobin 34 pg (25-35) Mean Corpuscular Hemoglobin Concent 34 g/dL (31-37) Red Cell Distribution Width 13.3 % (11.5-14.5) Platelet Count 205 x10^3/uL (140-400) Neutrophils (%) (Auto) 63 % (31-73) Lymphocytes (%) (Auto) 23 % (24-48) Monocytes (%) (Auto) 13 % (0-9) Eosinophils (%) (Auto) 1 % (0-3) Basophils (%) (Auto) 0 % (0-3) Neutrophils # (Auto) 5.5 x10^3/uL (1.8-7.7) Lymphocytes # (Auto) 2.0 x10^3/uL (1.0-4.8) Monocytes # (Auto) 1.1 x10^3/uL (0.0-1.1) Eosinophils # (Auto) 0.1 x10^3/uL (0.0-0.7) Basophils # (Auto) 0.0 x10^3/uL (0.0-0.2) Sodium Level 136 mmol/L (136-145) Potassium Level 3.1 mmol/L (3.5-5.1) Chloride Level 101 mmol/L (98-107) Carbon Dioxide Level 25 mmol/L (21-32) Anion Gap 10 (6-14) Blood Urea Nitrogen 12 mg/dL (8-26) Creatinine 0.8 mg/dL (0.7-1.3) Estimated GFR (Cockcroft-Gault) 95.0 BUN/Creatinine Ratio 15 (6-20) Glucose Level 70 mg/dL (70-99) Calcium Level 7.3 mg/dL (8.5-10.1) Total Bilirubin 0.5 mg/dL (0.2-1.0) Aspartate Amino Transf (AST/SGOT) 89 U/L (15-37) Alanine Aminotransferase (ALT/SGPT) 137 U/L (16-63) Alkaline Phosphatase 80 U/L (46-116) Total Protein 5.3 g/dL (6.4-8.2) Albumin 1.9 g/dL (3.4-5.0) Albumin/Globulin Ratio 0.6 (1.0-1.7) Microbiology 10/17/19 Blood Culture - Preliminary, Resulted NO GROWTH AFTER 4 DAYS Medications Current Medications Aspirin (Aspirin Chewable) 324 mg 1X ONCE PO Last administered on 10/16/19at 12:09; Start 10/16/19 at 12:15; Stop 10/16/19 at 12:16; Status DC Multi-Ingredient Mouthwash/Gargle (Gi Cocktail) 20 ml 1X ONCE SWSW Last administered on 10/16/19at 12:53; Start 10/16/19 at 13:00; Stop 10/16/19 at 13:01; Status DC Magnesium Sulfate/ Dextrose 100 ml @ 100 mls/hr 1X ONCE IV Last administered on 10/16/19at 21:35; Start 10/16/19 at 21:30; Stop 10/16/19 at 22:29; Status DC Potassium Chloride/Water 100 ml @ 100 mls/hr Q1H IV Last administered on 10/16/19at 21:33; Start 10/16/19 at 19:30; Stop 10/16/19 at 21:29; Status DC Potassium Chloride/Dextrose/ Sod Cl 1,000 ml @ 100 mls/hr Q10H IV Last administered on 10/21/19at 07:37; Start 10/16/19 at 19:30 Ondansetron HCl (Zofran) 4 mg PRN Q4HRS PRN IV NAUSEA/VOMITING; Start 10/16/19 at 18:45 Acetaminophen (Tylenol) 650 mg PRN Q4HRS PRN PO TEMP OVER 100.4F OR MILD PAIN; Start 10/16/19 at 18:45 Acetaminophen (Tylenol Supp) 650 mg PRN Q4HRS PRN AR TEMP OVER 100.4F OR MILD PAIN; Start 7/11/20 at 18:45 Enoxaparin Sodium (Lovenox 40mg Syringe) 40 mg Q24H SQ Last administered on 10/20/19at 20:45; Start 10/16/19 at 21:00 Piperacillin Sod/ Tazobactam Sod 3.375 gm/Sodium Chloride 50 ml @ 100 mls/hr Q6HRS IV Last administered on 10/21/19at 06:26; Start 10/17/19 at 00:00 Iohexol (Omnipaque 300 Mg/ml) 75 ml 1X ONCE IV Last administered on 10/17/19at 07:15; Start 10/17/19 at 07:15; Stop 10/17/19 at 07:16; Status DC Iohexol (Omnipaque 240 Mg/ml) 50 ml 1X ONCE PO Last administered on 10/17/19at 07:33; Start 10/17/19 at 07:15; Stop 10/17/19 at 07:16; Status DC Info (CONTRAST GIVEN -- Rx MONITORING) 1 each PRN DAILY PRN MC SEE COMMENTS; Start 10/17/19 at 07:15; Stop 10/19/19 at 07:14; Status DC Tamsulosin HCl (Flomax) 0.4 mg QHS PO Last administered on 10/20/19at 20:44; Start 10/17/19 at 21:00 Tamsulosin HCl (Flomax) 0.4 mg 1X ONCE PO Last administered on 10/17/19at 12:00; Start 10/17/19 at 10:00; Stop 10/17/19 at 10:01; Status DC Ondansetron HCl (Zofran) 4 mg PRN Q6HRS PRN IV NAUSEA/VOMITING; Start 10/19/19 at 07:00; Stop 10/19/19 at 15:38; Status DC Fentanyl Citrate (Fentanyl 2ml Vial) 25 mcg PRN Q5MIN PRN IV MILD PAIN 1-3; Start 10/19/19 at 07:00; Stop 10/19/19 at 15:38; Status DC Fentanyl Citrate (Fentanyl 2ml Vial) 50 mcg PRN Q5MIN PRN IV MODERATE TO SEVERE PAIN; Start 10/19/19 at 07:00; Stop 10/19/19 at 15:38; Status DC Morphine Sulfate (Morphine Sulfate) 1 mg PRN Q10MIN PRN IV SEVERE PAIN 7-10; Start 10/19/19 at 07:00; Stop 10/19/19 at 15:38; Status DC Ringer's Solution 1,000 ml @ 30 mls/hr Q24H IV Last administered on 10/19/19at 13:15; Start 10/19/19 at 07:00; Stop 10/19/19 at 15:38; Status DC Lidocaine HCl (Xylocaine-Mpf 1% 2ml Vial) 2 ml PRN 1X PRN ID PRIOR TO IV START; Start 10/19/19 at 07:00; Stop 10/19/19 at 15:38; Status DC Hydromorphone HCl (Dilaudid) 0.5 mg PRN Q10MIN PRN IV SEV PAIN, Second choice; Start 10/19/19 at 07:00; Stop 10/19/19 at 15:38; Status DC Prochlorperazine Edisylate (Compazine) 5 mg PACU PRN PRN IV NAUSEA, MRX1; Start 10/19/19 at 07:00; Stop 10/19/19 at 15:38; Status DC Heparin Sodium (Porcine) 1000 unit/Sodium Chloride 1,001 ml @ 1,001 mls/hr 1X ONCE IRR Last administered on 10/19/19at 13:59; Start 10/19/19 at 08:50; Stop 10/19/19 at 09:49; Status DC Bupivacaine HCl/ Epinephrine Bitart (Sensorcain-Epi 0.5%-1:557509 Mpf) 30 ml STK-MED ONCE .ROUTE Last administered on 10/19/19at 13:59; Start 10/19/19 at 11:45; Stop 10/19/19 at 13:31; Status DC Cellulose (Surgicel Hemostat 2x14) 1 each STK-MED ONCE .ROUTE ; Start 10/19/19 at 11:45; Stop 10/19/19 at 13:31; Status DC Iohexol (Omnipaque 300 Mg/ml) 50 ml STK-MED ONCE .ROUTE Last administered on 10/19/19at 13:59; Start 10/19/19 at 11:45; Stop 10/19/19 at 13:31; Status DC Bisacodyl (Dulcolax Supp) 10 mg STK-MED ONCE .ROUTE ; Start 10/19/19 at 11:45; Stop 10/19/19 at 13:31; Status DC Propofol (Diprivan) 200 mg STK-MED ONCE IV ; Start 10/19/19 at 12:28; Stop 10/19/19 at 13:32; Status DC Lidocaine HCl (Lidocaine Pf 2% Vial) 5 ml STK-MED ONCE .ROUTE ; Start 10/19/19 at 12:28; Stop 10/19/19 at 13:32; Status DC Ondansetron HCl (Zofran) 4 mg STK-MED ONCE .ROUTE ; Start 10/19/19 at 12:28; Stop 10/19/19 at 13:32; Status DC Dexamethasone Sodium Phosphate (Decadron) 4 mg STK-MED ONCE .ROUTE ; Start 10/19/19 at 12:28; Stop 10/19/19 at 13:32; Status DC Succinylcholine Chloride (Anectine) 200 mg STK-MED ONCE .ROUTE ; Start 10/19/19 at 12:28; Stop 10/19/19 at 13:32; Status DC Rocuronium [place] (Zemuron) 50 mg STK-MED ONCE .ROUTE ; Start 10/19/19 at 12:28; Stop 10/19/19 at 13:32; Status DC Fentanyl Citrate (Fentanyl 2ml Vial) 100 mcg STK-MED ONCE .ROUTE ; Start 10/19/19 at 12:28; Stop 10/19/19 at 13:32; Status DC Neostigmine [place] (Neostigmine Methylsulfate) 5 mg STK-MED ONCE .ROUTE ; Start 10/19/19 at 14:18; Stop 10/19/19 at 14:18; Status DC Glycopyrrolate (Robinul) 1 mg STK-MED ONCE .ROUTE ; Start 10/19/19 at 14:18; Stop 10/19/19 at 14:18; Status DC Phenylephrine HCl (PHENYLEPHRINE in 0.9% NACL PF) 1 mg STK-MED ONCE IV ; Start 10/19/19 at 14:18; Stop 10/19/19 at 14:18; Status DC Sevoflurane (Ultane) 60 ml STK-MED ONCE IH ; Start 10/19/19 at 14:18; Stop 10/19/19 at 14:18; Status DC Sodium Chloride (Normal Saline Flush) 3 ml QSHIFT PRN IV AFTER MEDS AND BLOOD DRAWS; Start 10/19/19 at 15:30 Ringer's Solution 1,000 ml @ 100 mls/hr Q10H IV Last administered on 10/20/19at 23:36; Start 10/19/19 at 15:20 Dextrose (Dextrose 50%-Water Syringe) 12.5 gm PRN Q15MIN PRN IV SEE COMMENTS; Start 10/19/19 at 15:30 Acetaminophen/ Hydrocodone Bitart (Lortab 5/325) 1 tab PRN Q4HRS PRN PO MILD PAIN 1-3 Last administered on 10/20/19at 20:47; Start 10/19/19 at 15:30 Naloxone HCl (Narcan) 0.4 mg PRN Q2MIN PRN IV SEE INSTRUCTIONS; Start 10/19/19 at 15:30 Sodium Chloride 1,000 ml @ 25 mls/hr Q24H IV ; Start 10/19/19 at 15:20 Docusate Sodium (Colace) 100 mg BID PO Last administered on 10/21/19at 07:37; Start 10/19/19 at 20:00 Lactobacillus Rhamnosus (Culturelle) 1 cap BID PO Last administered on 10/21/19at 07:37; Start 10/20/19 at 12:15 Vitals/I & O Vital Sign - Last 24 Hours 10/20/19 10/20/19 10/20/19 10/20/19 11:23 15:06 19:00 19:30 Temp 98.4 99.0 98.4 98.4 99.0 98.4 Pulse 85 85 89 Resp 19 18 18 B/P (MAP) 122/57 (78) 133/65 (87) 127/56 (79) Pulse Ox 94 92 94 O2 Delivery Room Air Room Air Room Air Room Air 10/20/19 10/20/19 10/20/19 10/21/19 20:47 21:48 23:00 03:00 Temp 98.1 98.1 98.1 98.1 Pulse 86 69 Resp 18 18 B/P (MAP) 123/62 (82) 109/63 (78) Pulse Ox 92 92 89 95 O2 Delivery Room Air Room Air Room Air Room Air 10/21/19 07:00 Temp 98.6 98.6 Pulse 64 Resp 18 B/P (MAP) 90/55 (67) Pulse Ox 92 O2 Delivery Room Air Intake and Output 10/20/19 10/20/19 10/21/19 15:00 23:00 07:00 Intake Total 400 ml 300 ml 1290 ml Output Total 350 ml Balance 400 ml 300 ml 940 ml Justicifation of Admission Dx: Justifications for Admission: Justification of Admission Dx: Yes MANOJ LARSEN MD Oct 21, 2019 08:25
--- NOTE | 2019-10-21 08:44 | NUR ---
JUAN DIEGO following. Discussed with RN, pt accepted with [facility]. SW notified RN, and reminded RN pt wants to purchase the walker from the hospital. Pt does not have $20 in [place], but does have it on his debit card. JUAN DIEGO will continue to follow, awaiting discharge orders to fax to [facility].
--- NOTE | 2019-10-21 09:09 | PDOC ---
SURGICAL PROGRESS NOTE Subjective eating a little did not ambulate much some pain no emesis Vital Signs Vital Signs Date Time Temp Pulse Resp B/P (MAP) Pulse Ox O2 Delivery O2 Flow Rate FiO2 10/21/19 08:00 Room Air 10/21/19 07:00 98.6 64 18 90/55 (67) 92 98.6 I&O Intake and Output 10/21/19 07:00 Intake Total 1990 ml Output Total 350 ml Balance 1640 ml Intake Oral 940 ml IV Total 1050 ml Output Urine Total 350 ml # Voids 1 General: Alert, Oriented X3, Cooperative Abdomen: Soft, Other (lap dressings dry, incisional TTP) Labs Laboratory Tests Test 10/21/19 02:35 White Blood Count 8.7 x10^3/uL (4.0-11.0) Red Blood Count 3.02 x10^6/uL (4.30-5.70) Hemoglobin 10.2 g/dL (13.0-17.5) Hematocrit 29.8 % (39.0-53.0) Mean Corpuscular Volume 99 fL (79-100) Mean Corpuscular Hemoglobin 34 pg (25-35) Mean Corpuscular Hemoglobin Concent 34 g/dL (31-37) Red Cell Distribution Width 13.3 % (11.5-14.5) Platelet Count 205 x10^3/uL (140-400) Neutrophils (%) (Auto) 63 % (31-73) Lymphocytes (%) (Auto) 23 % (24-48) Monocytes (%) (Auto) 13 % (0-9) Eosinophils (%) (Auto) 1 % (0-3) Basophils (%) (Auto) 0 % (0-3) Neutrophils # (Auto) 5.5 x10^3/uL (1.8-7.7) Lymphocytes # (Auto) 2.0 x10^3/uL (1.0-4.8) Monocytes # (Auto) 1.1 x10^3/uL (0.0-1.1) Eosinophils # (Auto) 0.1 x10^3/uL (0.0-0.7) Basophils # (Auto) 0.0 x10^3/uL (0.0-0.2) Sodium Level 136 mmol/L (136-145) Potassium Level 3.1 mmol/L (3.5-5.1) Chloride Level 101 mmol/L (98-107) Carbon Dioxide Level 25 mmol/L (21-32) Anion Gap 10 (6-14) Blood Urea Nitrogen 12 mg/dL (8-26) Creatinine 0.8 mg/dL (0.7-1.3) Estimated GFR (Cockcroft-Gault) 95.0 BUN/Creatinine Ratio 15 (6-20) Glucose Level 70 mg/dL (70-99) Calcium Level 7.3 mg/dL (8.5-10.1) Total Bilirubin 0.5 mg/dL (0.2-1.0) Aspartate Amino Transf (AST/SGOT) 89 U/L (15-37) Alanine Aminotransferase (ALT/SGPT) 137 U/L (16-63) Alkaline Phosphatase 80 U/L (46-116) Total Protein 5.3 g/dL (6.4-8.2) Albumin 1.9 g/dL (3.4-5.0) Albumin/Globulin Ratio 0.6 (1.0-1.7) Laboratory Tests Test 10/21/19 02:35 White Blood Count 8.7 x10^3/uL (4.0-11.0) Red Blood Count 3.02 x10^6/uL (4.30-5.70) Hemoglobin 10.2 g/dL (13.0-17.5) Hematocrit 29.8 % (39.0-53.0) Mean Corpuscular Volume 99 fL (79-100) Mean Corpuscular Hemoglobin 34 pg (25-35) Mean Corpuscular Hemoglobin Concent 34 g/dL (31-37) Red Cell Distribution Width 13.3 % (11.5-14.5) Platelet Count 205 x10^3/uL (140-400) Neutrophils (%) (Auto) 63 % (31-73) Lymphocytes (%) (Auto) 23 % (24-48) Monocytes (%) (Auto) 13 % (0-9) Eosinophils (%) (Auto) 1 % (0-3) Basophils (%) (Auto) 0 % (0-3) Neutrophils # (Auto) 5.5 x10^3/uL (1.8-7.7) Lymphocytes # (Auto) 2.0 x10^3/uL (1.0-4.8) Monocytes # (Auto) 1.1 x10^3/uL (0.0-1.1) Eosinophils # (Auto) 0.1 x10^3/uL (0.0-0.7) Basophils # (Auto) 0.0 x10^3/uL (0.0-0.2) Sodium Level 136 mmol/L (136-145) Potassium Level 3.1 mmol/L (3.5-5.1) Chloride Level 101 mmol/L (98-107) Carbon Dioxide Level 25 mmol/L (21-32) Anion Gap 10 (6-14) Blood Urea Nitrogen 12 mg/dL (8-26) Creatinine 0.8 mg/dL (0.7-1.3) Estimated GFR (Cockcroft-Gault) 95.0 BUN/Creatinine Ratio 15 (6-20) Glucose Level 70 mg/dL (70-99) Calcium Level 7.3 mg/dL (8.5-10.1) Total Bilirubin 0.5 mg/dL (0.2-1.0) Aspartate Amino Transf (AST/SGOT) 89 U/L (15-37) Alanine Aminotransferase (ALT/SGPT) 137 U/L (16-63) Alkaline Phosphatase 80 U/L (46-116) Total Protein 5.3 g/dL (6.4-8.2) Albumin 1.9 g/dL (3.4-5.0) Albumin/Globulin Ratio 0.6 (1.0-1.7) Problem List Problems Medical Problems: (1) Chest pain Status: Acute (2) Leukocytosis Status: Acute (3) Pancreatitis Status: Acute (4) Serum lipase elevation Status: Acute Assessment/Plan s/p david as per medicine Justicifation of Admission Dx: Justifications for Admission: Justification of Admission Dx: Yes CHRISTOPHER WELLS CLEANING MANAGER Oct 21, 2019 09:09
[2019-10-21 11:01] VITALS: BP 99/46
--- NOTE | 2019-10-21 11:01 | PDOC ---
Subjective: Subjective: In better spirits today. Trying to eat some. Says no gas or stool. Going to get up and walk more today. Objective: Vital Signs: Vital Signs Date Time Temp Pulse Resp B/P (MAP) Pulse Ox O2 Delivery O2 Flow Rate FiO2 10/21/19 08:00 Room Air 10/21/19 07:00 98.6 64 18 90/55 (67) 92 98.6 Labs: Laboratory Tests Test 10/21/19 02:35 White Blood Count 8.7 x10^3/uL Red Blood Count 3.02 x10^6/uL Hemoglobin 10.2 g/dL Hematocrit 29.8 % Mean Corpuscular Volume 99 fL Mean Corpuscular Hemoglobin 34 pg Mean Corpuscular Hemoglobin Concent 34 g/dL Red Cell Distribution Width 13.3 % Platelet Count 205 x10^3/uL Neutrophils (%) (Auto) 63 % Lymphocytes (%) (Auto) 23 % Monocytes (%) (Auto) 13 % Eosinophils (%) (Auto) 1 % Basophils (%) (Auto) 0 % Neutrophils # (Auto) 5.5 x10^3/uL Lymphocytes # (Auto) 2.0 x10^3/uL Monocytes # (Auto) 1.1 x10^3/uL Eosinophils # (Auto) 0.1 x10^3/uL Basophils # (Auto) 0.0 x10^3/uL Sodium Level 136 mmol/L Potassium Level 3.1 mmol/L Chloride Level 101 mmol/L Carbon Dioxide Level 25 mmol/L Anion Gap 10 Blood Urea Nitrogen 12 mg/dL Creatinine 0.8 mg/dL Estimated GFR (Cockcroft-Gault) 95.0 BUN/Creatinine Ratio 15 Glucose Level 70 mg/dL Calcium Level 7.3 mg/dL Total Bilirubin 0.5 mg/dL Aspartate Amino Transf (AST/SGOT) 89 U/L Alanine Aminotransferase (ALT/SGPT) 137 U/L Alkaline Phosphatase 80 U/L Total Protein 5.3 g/dL Albumin 1.9 g/dL Albumin/Globulin Ratio 0.6 BLOOD CULTURE Preliminary NO GROWTH AFTER 4 DAYS PE: GEN: NAD - a couple bites of applesauce gone, eggs and toast untouched LUNGS: CTAB HEART: RRR ABD: BS+, some distention, doesn't seem uncomfortable NEURO/PSYCH: A & O 3 A/P: Pancreatitis s/p cholecystectomy -- Continue support. Justicifation of Admission Dx: Justifications for Admission: Justification of Admission Dx: Yes DYUEN NORWOOD Oct 21, 2019 11:01
[2019-10-21] MEDS: POLYETHYLENE GLYCOL 3350 17 GM PACKET. PO SCH (11:33)
[2019-10-21] MEDS: HYDROcodone/APAP 5/325MG 1 TAB TABLET PO PRN (12:01)
[2019-10-21] MEDS: IV NORMAL SALINE 1000ML BAG 1,000 ML IV SCH (12:37)
[2019-10-21 15:18] VITALS: BP 93/58
[2019-10-21 19:25] VITALS: BP 104/48
[2019-10-21] MEDS: TAMSULOSIN 0.4 MG CAP.ER.24H. PO SCH (20:58)
[2019-10-21] MEDS: ENOXAPARIN 40 MG/0.4 ML SYRINGE. SQ SCH (20:59)
[2019-10-21] MEDS ORDERED: FAMOTIDINE 20 MG TABLET. PO SCH (21:00)
[2019-10-21 22:40] VITALS: BP 111/61
[2019-10-22 03:00] VITALS: BP 125/61
[2019-10-22] MEDS: IV RINGERS,LACTATED 1000ML 1,000 ML IV SCH ×2 (03:12→13:20)
[2019-10-22] MEDS: PIPERACILLIN/TAZOBACTAM 3.375 GM in IV NORMAL SALINE 50ML 50 ML IV SCH ×2 (05:32→12:53)
[2019-10-22] MEDS: POTASSIUM CL 20MEQ D5-0.45NACL 1,000 ML IV SCH (05:44)
--- NOTE | 2019-10-22 06:33 | PDOC ---
PROGRESS NOTES Chief Complaint Chief Complaint DISCHARGE DX Acute pancreatitis - // gallstone pancreatitis, normal triglycerides. no meds, no ETOH use. NPO, consult surgery and GI Epigastric abdominal pain - 2/2 above, cholecystitis may also be present. 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 Underlying mass not excluded. FEN - ADAT PPX - lovenox DNR/DNI Dispo - inpatient for 2 midnights gi consulted pursue cholecystectomy. Don't feel EGD needed at this point. Could consider screening colonoscopy. COVID-19 SCREEN NEG TO OR for laparoscopic versus open cholecystectomy with cholangiogram. 10/18 pod # 3 10/20 poor appetite, weak 10/21 BETTER, D/C TODAY OK WITH SURGERY HH 27 min pt exam, chart review D/C PLANNING, > 50% of time spent with exam, chart review, pt care coordination History of Present Illness History of Present Illness Mr Parra is a 74yo M resident of [facility] w/ PMHx arthritis, HLD, CVA 2006 with left sided weakness who presents with complaints of epigastric abdominal pain starting 2 hours prior to ED visit. Rates this pressure feeling at a 7/10 as a "gas" feeling. Has nausea. Patient denies shortness of breath, diaphoresis, diarrhea. No chest pain. Patient denies any recent fever chills or changes in vision. Patient denies any nasal congestion or sore throat. No changes in his stool habits. Patient denies any problems urinating. Patient denies any back or joint pains or any skin rashes. Patient denies any weaknesses that have changed since his stroke recovery. Patient denies history of EtOH, is a nondrinker, quit smoking in 2019. WBC 17.4, Hb 13.8, Platelets 257, Na 140, K 3.5, BUN 12, Cr. 1.1, Troponin negative x 2, AST 436, ALT 352, and Lipase 29,956. EKG NSR, no stemi. CXR clear. RUQ US with gallbladder wall thickening. no visualization of CBD. Admitted for further treatment. CT abdomen showed acute pancreatitis, suspected mild gallbladder wall thickening, no apparent biliary ductal dilatation or choledocholithiasis and distended urinary bladder with mild diffuse bladder wall thickening, right UVJ without evidence of right-sided hydronephrosis which could represent a small nonobstructing UVJ calculus or a nonspecific bladder wall calcification. Lipase improved to 4667. Afebrile. Still with diffuse abdominal pain and decreased appetite. Vitals Vitals Vital Signs Date Time Temp Pulse Resp B/P (MAP) Pulse Ox O2 Delivery O2 Flow Rate FiO2 10/22/19 03:00 98.9 72 18 125/61 (82) 95 Room Air 8.0 98.9 Physical Exam General: Alert, Oriented X3, Cooperative, No acute distress, Other (frail ) Heart: Regular rate, Normal S1, Normal S2, No murmurs Lungs: Clear Abdomen: Normal bowel sounds, Soft, No tenderness, Other (dressing dry intact) Extremities: No clubbing, No cyanosis Skin: No rashes, No breakdown Assessment and Plan Assessmemt and Plan Problems Medical Problems: (1) Chest pain Status: Acute (2) Leukocytosis Status: Acute (3) Pancreatitis Status: Acute (4) Serum lipase elevation Status: Acute Comment Review of Relevant I have reviewed the following items sarah (where applicable) has been applied. Labs Laboratory Tests Test 10/21/19 02:35 White Blood Count 8.7 x10^3/uL (4.0-11.0) Red Blood Count 3.02 x10^6/uL (4.30-5.70) Hemoglobin 10.2 g/dL (13.0-17.5) Hematocrit 29.8 % (39.0-53.0) Mean Corpuscular Volume 99 fL (79-100) Mean Corpuscular Hemoglobin 34 pg (25-35) Mean Corpuscular Hemoglobin Concent 34 g/dL (31-37) Red Cell Distribution Width 13.3 % (11.5-14.5) Platelet Count 205 x10^3/uL (140-400) Neutrophils (%) (Auto) 63 % (31-73) Lymphocytes (%) (Auto) 23 % (24-48) Monocytes (%) (Auto) 13 % (0-9) Eosinophils (%) (Auto) 1 % (0-3) Basophils (%) (Auto) 0 % (0-3) Neutrophils # (Auto) 5.5 x10^3/uL (1.8-7.7) Lymphocytes # (Auto) 2.0 x10^3/uL (1.0-4.8) Monocytes # (Auto) 1.1 x10^3/uL (0.0-1.1) Eosinophils # (Auto) 0.1 x10^3/uL (0.0-0.7) Basophils # (Auto) 0.0 x10^3/uL (0.0-0.2) Sodium Level 136 mmol/L (136-145) Potassium Level 3.1 mmol/L (3.5-5.1) Chloride Level 101 mmol/L (98-107) Carbon Dioxide Level 25 mmol/L (21-32) Anion Gap 10 (6-14) Blood Urea Nitrogen 12 mg/dL (8-26) Creatinine 0.8 mg/dL (0.7-1.3) Estimated GFR (Cockcroft-Gault) 95.0 BUN/Creatinine Ratio 15 (6-20) Glucose Level 70 mg/dL (70-99) Calcium Level 7.3 mg/dL (8.5-10.1) Total Bilirubin 0.5 mg/dL (0.2-1.0) Aspartate Amino Transf (AST/SGOT) 89 U/L (15-37) Alanine Aminotransferase (ALT/SGPT) 137 U/L (16-63) Alkaline Phosphatase 80 U/L (46-116) Total Protein 5.3 g/dL (6.4-8.2) Albumin 1.9 g/dL (3.4-5.0) Albumin/Globulin Ratio 0.6 (1.0-1.7) Microbiology 10/17/19 Blood Culture - Final, Complete NO GROWTH AFTER 5 DAYS Medications Current Medications Aspirin (Aspirin Chewable) 324 mg 1X ONCE PO Last administered on 10/16/19at 12:09; Start 10/16/19 at 12:15; Stop 10/16/19 at 12:16; Status DC Multi-Ingredient Mouthwash/Gargle (Gi Cocktail) 20 ml 1X ONCE SWSW Last administered on 10/16/19at 12:53; Start 10/16/19 at 13:00; Stop 10/16/19 at 13:01; Status DC Magnesium Sulfate/ Dextrose 100 ml @ 100 mls/hr 1X ONCE IV Last administered on 10/16/19at 21:35; Start 10/16/19 at 21:30; Stop 10/16/19 at 22:29; Status DC Potassium Chloride/Water 100 ml @ 100 mls/hr Q1H IV Last administered on 10/16/19at 21:33; Start 10/16/19 at 19:30; Stop 10/16/19 at 21:29; Status DC Potassium Chloride/Dextrose/ Sod Cl 1,000 ml @ 100 mls/hr Q10H IV Last administered on 10/22/19at 05:44; Start 10/16/19 at 19:30 Ondansetron HCl (Zofran) 4 mg PRN Q4HRS PRN IV NAUSEA/VOMITING; Start 10/16/19 at 18:45 Acetaminophen (Tylenol) 650 mg PRN Q4HRS PRN PO TEMP OVER 100.4F OR MILD PAIN; Start 10/16/19 at 18:45 Acetaminophen (Tylenol Supp) 650 mg PRN Q4HRS PRN KS TEMP OVER 100.4F OR MILD PAIN; Start 10/16/19 at 18:45 Enoxaparin Sodium (Lovenox 40mg Syringe) 40 mg Q24H SQ Last administered on 10/21/19at 20:59; Start 10/16/19 at 21:00 Piperacillin Sod/ Tazobactam Sod 3.375 gm/Sodium Chloride 50 ml @ 100 mls/hr Q6HRS IV Last administered on 10/22/19at 05:32; Start 10/17/19 at 00:00 Iohexol (Omnipaque 300 Mg/ml) 75 ml 1X ONCE IV Last administered on 10/17/19at 07:15; Start 10/17/19 at 07:15; Stop 10/17/19 at 07:16; Status DC Iohexol (Omnipaque 240 Mg/ml) 50 ml 1X ONCE PO Last administered on 10/17/19at 07:33; Start 10/17/19 at 07:15; Stop 10/17/19 at 07:16; Status DC Info (CONTRAST GIVEN -- Rx MONITORING) 1 each PRN DAILY PRN MC SEE COMMENTS; Start 10/17/19 at 07:15; Stop 10/19/19 at 07:14; Status DC Tamsulosin HCl (Flomax) 0.4 mg QHS PO Last administered on 10/21/19at 20:58; Start 10/17/19 at 21:00 Tamsulosin HCl (Flomax) 0.4 mg 1X ONCE PO Last administered on 10/17/19at 12:00; Start 10/17/19 at 10:00; Stop 10/17/19 at 10:01; Status DC Ondansetron HCl (Zofran) 4 mg PRN Q6HRS PRN IV NAUSEA/VOMITING; Start 10/19/19 at 07:00; Stop 10/19/19 at 15:38; Status DC Fentanyl Citrate (Fentanyl 2ml Vial) 25 mcg PRN Q5MIN PRN IV MILD PAIN 1-3; Start 10/19/19 at 07:00; Stop 10/19/19 at 15:38; Status DC Fentanyl Citrate (Fentanyl 2ml Vial) 50 mcg PRN Q5MIN PRN IV MODERATE TO SEVERE PAIN; Start 10/19/19 at 07:00; Stop 10/19/19 at 15:38; Status DC Morphine Sulfate (Morphine Sulfate) 1 mg PRN Q10MIN PRN IV SEVERE PAIN 7-10; Start 10/19/19 at 07:00; Stop 10/19/19 at 15:38; Status DC Ringer's Solution 1,000 ml @ 30 mls/hr Q24H IV Last administered on 10/19/19at 13:15; Start 10/19/19 at 07:00; Stop 10/19/19 at 15:38; Status DC Lidocaine HCl (Xylocaine-Mpf 1% 2ml Vial) 2 ml PRN 1X PRN ID PRIOR TO IV START; Start 10/19/19 at 07:00; Stop 10/19/19 at 15:38; Status DC Hydromorphone HCl (Dilaudid) 0.5 mg PRN Q10MIN PRN IV SEV PAIN, Second choice; Start 10/19/19 at 07:00; Stop 10/19/19 at 15:38; Status DC Prochlorperazine Edisylate (Compazine) 5 mg PACU PRN PRN IV NAUSEA, MRX1; Start 10/19/19 at 07:00; Stop 10/19/19 at 15:38; Status DC Heparin Sodium (Porcine) 1000 unit/Sodium Chloride 1,001 ml @ 1,001 mls/hr 1X ONCE IRR Last administered on 10/19/19at 13:59; Start 10/19/19 at 08:50; Stop 10/19/19 at 09:49; Status DC Bupivacaine HCl/ Epinephrine Bitart (Sensorcain-Epi 0.5%-1:012446 Mpf) 30 ml STK-MED ONCE .ROUTE Last administered on 10/19/19at 13:59; Start 10/19/19 at 11:45; Stop 10/19/19 at 13:31; Status DC Cellulose (Surgicel Hemostat 2x14) 1 each STK-MED ONCE .ROUTE ; Start 10/19/19 at 11:45; Stop 10/19/19 at 13:31; Status DC Iohexol (Omnipaque 300 Mg/ml) 50 ml STK-MED ONCE .ROUTE Last administered on 10/19/19at 13:59; Start 10/19/19 at 11:45; Stop 10/19/19 at 13:31; Status DC Bisacodyl (Dulcolax Supp) 10 mg STK-MED ONCE .ROUTE ; Start 10/19/19 at 11:45; Stop 10/19/19 at 13:31; Status DC Propofol (Diprivan) 200 mg STK-MED ONCE IV ; Start 10/19/19 at 12:28; Stop 10/19/19 at 13:32; Status DC Lidocaine HCl (Lidocaine Pf 2% Vial) 5 ml STK-MED ONCE .ROUTE ; Start 10/19/19 at 12:28; Stop 10/19/19 at 13:32; Status DC Ondansetron HCl (Zofran) 4 mg STK-MED ONCE .ROUTE ; Start 10/19/19 at 12:28; Stop 10/19/19 at 13:32; Status DC Dexamethasone Sodium Phosphate (Decadron) 4 mg STK-MED ONCE .ROUTE ; Start 10/19/19 at 12:28; Stop 10/19/19 at 13:32; Status DC Succinylcholine Chloride (Anectine) 200 mg STK-MED ONCE .ROUTE ; Start 10/19/19 at 12:28; Stop 10/19/19 at 13:32; Status DC Rocuronium [place] (Zemuron) 50 mg STK-MED ONCE .ROUTE ; Start 10/19/19 at 1 2:28; Stop 10/19/19 at 13:32; Status DC Fentanyl Citrate (Fentanyl 2ml Vial) 100 mcg STK-MED ONCE .ROUTE ; Start 10/19/19 at 12:28; Stop 10/19/19 at 13:32; Status DC Neostigmine [place] (Neostigmine Methylsulfate) 5 mg STK-MED ONCE .ROUTE ; Start 10/19/19 at 14:18; Stop 10/19/19 at 14:18; Status DC Glycopyrrolate (Robinul) 1 mg STK-MED ONCE .ROUTE ; Start 10/19/19 at 14:18; Stop 10/19/19 at 14:18; Status DC Phenylephrine HCl (PHENYLEPHRINE in 0.9% NACL PF) 1 mg STK-MED ONCE IV ; Start 10/19/19 at 14:18; Stop 10/19/19 at 14:18; Status DC Sevoflurane (Ultane) 60 ml STK-MED ONCE IH ; Start 10/19/19 at 14:18; Stop 10/19/19 at 14:18; Status DC Sodium Chloride (Normal Saline Flush) 3 ml QSHIFT PRN IV AFTER MEDS AND BLOOD DRAWS; Start 10/19/19 at 15:30 Ringer's Solution 1,000 ml @ 100 mls/hr Q10H IV Last administered on 10/20/19at 23:36; Start 10/19/19 at 15:20 Dextrose (Dextrose 50%-Water Syringe) 12.5 gm PRN Q15MIN PRN IV SEE COMMENTS; Start 10/19/19 at 15:30 Acetaminophen/ Hydrocodone Bitart (Lortab 5/325) 1 tab PRN Q4HRS PRN PO MILD PAIN 1-3 Last administered on 10/21/19at 12:01; Start 10/19/19 at 15:30 Naloxone HCl (Narcan) 0.4 mg PRN Q2MIN PRN IV SEE INSTRUCTIONS; Start 10/19/19 at 15:30 Sodium Chloride 1,000 ml @ 25 mls/hr Q24H IV ; Start 10/19/19 at 15:20; Stop 10/21/19 at 12:39; Status DC Docusate Sodium (Colace) 100 mg BID PO Last administered on 10/21/19at 20:58; Start 10/19/19 at 20:00 Lactobacillus Rhamnosus (Culturelle) 1 cap BID PO Last administered on 10/21/19at 20:58; Start 10/20/19 at 12:15 Famotidine (Pepcid) 20 mg QHS PO Last administered on 10/21/19at 20:58; Start 10/21/19 at 21:00 Polyethylene Glycol (miraLAX PACKET) 17 gm DAILY PO Last administered on 10/21/19at 11:33; Start 10/21/19 at 11:30 Vitals/I & O Vital Sign - Last 24 Hours 10/21/19 10/21/19 10/21/19 10/21/19 07:00 08:00 11:01 12:01 Temp 98.6 98.7 98.6 98.7 Pulse 64 67 Resp 18 18 16 B/P (MAP) 90/55 (67) 99/46 (63) Pulse Ox 92 92 O2 Delivery Room Air Room Air Room Air Room Air 10/21/19 10/21/19 10/21/19 10/21/19 13:02 15:18 19:25 20:00 Temp 98.2 98.4 98.2 98.4 Pulse 75 67 Resp 16 18 18 B/P (MAP) 93/58 (70) 104/48 (66) Pulse Ox 95 93 O2 Delivery Room Air Room Air Room Air Room Air 10/21/19 10/22/19 22:40 03:00 Temp 98.8 98.9 98.8 98.9 Pulse 72 72 Resp 16 18 B/P (MAP) 111/61 (78) 125/61 (82) Pulse Ox 93 95 O2 Delivery Room Air Room Air O2 Flow Rate 8.0 Intake and Output 10/21/19 10/21/19 10/22/19 15:00 23:00 07:00 Intake Total 400 ml 200 ml 120 ml Output Total 400 ml Balance 400 ml -200 ml 120 ml Justicifation of Admission Dx: Justifications for Admission: Justification of Admission Dx: Yes MANOJ LARSEN MD Oct 22, 2019 06:33
[2019-10-22 07:33] VITALS: BP 136/50
[2019-10-22] MEDS: DOCUSATE SODIUM 100 MG CAPSULE. PO SCH (09:00)
[2019-10-22] MEDS: POLYETHYLENE GLYCOL 3350 17 GM PACKET. PO SCH (09:00)
--- NOTE | 2019-10-22 09:13 | PDOC ---
SURGICAL PROGRESS NOTE Subjective doing ok pain managed tolerating diet Vital Signs Vital Signs Date Time Temp Pulse Resp B/P (MAP) Pulse Ox O2 Delivery O2 Flow Rate FiO2 10/22/19 07:33 98.9 75 18 136/50 (78) 94 Room Air 98.9 10/22/19 03:00 8.0 I&O Intake and Output 10/22/19 07:00 Intake Total 970 ml Output Total 400 ml Balance 570 ml Intake Oral 970 ml Output Urine Total 400 ml # Voids 10 # Bowel Movements 1 General: Alert, Oriented X3, Cooperative Abdomen: Soft, No tenderness, Other (ND) Labs Laboratory Tests Test 10/21/19 02:35 White Blood Count 8.7 x10^3/uL (4.0-11.0) Red Blood Count 3.02 x10^6/uL (4.30-5.70) Hemoglobin 10.2 g/dL (13.0-17.5) Hematocrit 29.8 % (39.0-53.0) Mean Corpuscular Volume 99 fL (79-100) Mean Corpuscular Hemoglobin 34 pg (25-35) Mean Corpuscular Hemoglobin Concent 34 g/dL (31-37) Red Cell Distribution Width 13.3 % (11.5-14.5) Platelet Count 205 x10^3/uL (140-400) Neutrophils (%) (Auto) 63 % (31-73) Lymphocytes (%) (Auto) 23 % (24-48) Monocytes (%) (Auto) 13 % (0-9) Eosinophils (%) (Auto) 1 % (0-3) Basophils (%) (Auto) 0 % (0-3) Neutrophils # (Auto) 5.5 x10^3/uL (1.8-7.7) Lymphocytes # (Auto) 2.0 x10^3/uL (1.0-4.8) Monocytes # (Auto) 1.1 x10^3/uL (0.0-1.1) Eosinophils # (Auto) 0.1 x10^3/uL (0.0-0.7) Basophils # (Auto) 0.0 x10^3/uL (0.0-0.2) Sodium Level 136 mmol/L (136-145) Potassium Level 3.1 mmol/L (3.5-5.1) Chloride Level 101 mmol/L (98-107) Carbon Dioxide Level 25 mmol/L (21-32) Anion Gap 10 (6-14) Blood Urea Nitrogen 12 mg/dL (8-26) Creatinine 0.8 mg/dL (0.7-1.3) Estimated GFR (Cockcroft-Gault) 95.0 BUN/Creatinine Ratio 15 (6-20) Glucose Level 70 mg/dL (70-99) Calcium Level 7.3 mg/dL (8.5-10.1) Total Bilirubin 0.5 mg/dL (0.2-1.0) Aspartate Amino Transf (AST/SGOT) 89 U/L (15-37) Alanine Aminotransferase (ALT/SGPT) 137 U/L (16-63) Alkaline Phosphatase 80 U/L (46-116) Total Protein 5.3 g/dL (6.4-8.2) Albumin 1.9 g/dL (3.4-5.0) Albumin/Globulin Ratio 0.6 (1.0-1.7) Problem List Problems Medical Problems: (1) Chest pain Status: Acute (2) Leukocytosis Status: Acute (3) Pancreatitis Status: Acute (4) Serum lipase elevation Status: Acute Assessment/Plan s/p david ok to dc from surgical pov Justicifation of Admission Dx: Justifications for Admission: Justification of Admission Dx: Yes CHRISTOPHER WELLS [employer] Oct 22, 2019 09:13
[2019-10-22] MEDS: LACTOBACILLUS RHAMNOSUS GG 1 CAPSULE. PO SCH (09:51)
[2019-10-22 11:03] VITALS: BP 138/53
--- NOTE | 2019-10-22 11:31 | NUR ---
SW following. Discussed with RN, pt possibly can discharge home today with home health, per RN. SW awaiting discharge orders - notified Dr. Nava.
--- NOTE | 2019-10-22 11:40 | PDOC3 ---
Discharge Summary Date of Admission: Oct 16, 2019 Date of Discharge: Oct 22, 2019 Follow-Up: 1-2 days Admitting Diagnosis comment: DISCHARGE DX Acute pancreatitis - // gallstone pancreatitis, normal triglycerides. no meds, no ETOH use. NPO, consult surgery and GI Epigastric abdominal pain - 2/2 above, cholecystitis may also be present. 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 Underlying mass not excluded. FEN - ADAT PPX - lovenox DNR/DNI Dispo - inpatient for 2 midnights gi consulted pursue cholecystectomy. Don't feel EGD needed at this point. Could consider screening colonoscopy. COVID-19 SCREEN NEG TO OR for laparoscopic versus open cholecystectomy with cholangiogram. 10/18 pod # 3 16 poor appetite, weak 10/21 BETTER, D/C TODAY OK WITH SURGERY HH 27 min pt exam, chart review D/C PLANNING, > 50% of time spent with exam, chart review, pt care coordination History of Present Illness History of Present Illness Mr Parra is a 74yo M resident of [facility] w/ PMHx arthritis, HLD, CVA 2006 with left sided weakness who presents with complaints of epigastric abdominal pain starting 2 hours prior to ED visit. Rates this pressure feeling at a 7/10 as a "gas" feeling. Has nausea. Patient denies shortness of breath, diaphoresis, diarrhea. No chest pain. Patient denies any recent fever chills or changes in vision. Patient denies any nasal congestion or sore throat. No changes in his stool habits. Patient denies any problems urinating. Patient denies any back or joint pains or any skin rashes. Patient denies any weaknesses that have changed since his stroke recovery. Patient denies history of EtOH, is a nondrinker, quit smoking in 2019. WBC 17.4, Hb 13.8, Platelets 257, Na 140, K 3.5, BUN 12, Cr. 1.1, Troponin negative x 2, AST 436, ALT 352, and Lipase 29,956. EKG NSR, no stemi. CXR clear. RUQ US with gallbladder wall thickening. no v isualization of CBD. Admitted for further treatment. CT abdomen showed acute pancreatitis, suspected mild gallbladder wall thickening, no apparent biliary ductal dilatation or choledocholithiasis and distended urinary bladder with mild diffuse bladder wall thickening, right UVJ without evidence of right-sided hydronephrosis which could represent a small nonobstructing UVJ calculus or a nonspecific bladder wall calcification. Lipase improved to 4667. Afebrile. Still with diffuse abdominal pain and decreased appetite. Vitals Vitals Vital Signs Date Time Temp Pulse Resp B/P (MAP) Pulse Ox O2 Delivery O2 Flow Rate FiO2 10/22/19 03:00 98.9 72 18 125/61 (82) 95 Room Air 8.0 98.9 Physical Exam General: Alert, Oriented X3, Cooperative, No acute distress, Other (frail ) Heart: Regular rate, Normal S1, Normal S2, No murmurs Lungs: Clear Abdomen: Normal bowel sounds, Soft, No tenderness, Other (dressing dry intact) Extremities: No clubbing, No cyanosis Skin: No rashes, No breakdown Assessment and Plan Assessmemt and Plan Problems Medical Problems: (1) Chest pain Status: Acute (2) Leukocytosis Status: Acute (3) Pancreatitis Status: Acute (4) Serum lipase elevation Status: Acute FINAL DIAGNOSIS Problems Medical Problems: (1) Chest pain Status: Acute (2) Leukocytosis Status: Acute (3) Pancreatitis Status: Acute (4) Serum lipase elevation Status: Acute Brief Hospital Course Mr. Parra is a 74 old [sex] who presented with [ ACUTE CHOLECYSTITIS ] CONDITION AT DISCHARGE: Improved Discharge Medications Current Medications Aspirin (Aspirin Chewable) 324 mg 1X ONCE PO Last administered on 10/16/19at 12:09; Start 10/16/19 at 12:15; Stop 10/16/19 at 12:16; Status DC Multi-Ingredient Mouthwash/Gargle (Gi Cocktail) 20 ml 1X ONCE SWSW Last administered on 10/16/19at 12:53; Start 10/16/19 at 13:00; Stop 10/16/19 at 13:01; Status DC Magnesium Sulfate/ Dextrose 100 ml @ 100 mls/hr 1X ONCE IV Last administered on 10/16/19at 21:35; Start 10/16/19 at 21:30; Stop 10/16/19 at 22:29; Status DC Potassium Chloride/Water 100 ml @ 100 mls/hr Q1H IV Last administered on 10/16/19at 21:33; Start 10/16/19 at 19:30; Stop 10/16/19 at 21:29; Status DC Potassium Chloride/Dextrose/ Sod Cl 1,000 ml @ 100 mls/hr Q10H IV Last administered on 10/22/19at 05:44; Start 10/16/19 at 19:30 Ondansetron HCl (Zofran) 4 mg PRN Q4HRS PRN IV NAUSEA/VOMITING; Start 10/16/19 at 18:45 Acetaminophen (Tylenol) 650 mg PRN Q4HRS PRN PO TEMP OVER 100.4F OR MILD PAIN; Start 10/16/19 at 18:45 Acetaminophen (Tylenol Supp) 650 mg PRN Q4HRS PRN [place] TEMP OVER 100.4F OR MILD PAIN; Start 10/16/19 at 18:45 Enoxaparin Sodium (Lovenox 40mg Syringe) 40 mg Q24H SQ Last administered on 10/21/19at 20:59; Start 10/16/19 at 21:00 Piperacillin Sod/ Tazobactam Sod 3.375 gm/Sodium Chloride 50 ml @ 100 mls/hr Q6HRS IV Last administered on 10/22/19at 05:32; Start 10/17/19 at 00:00 Iohexol (Omnipaque 300 Mg/ml) 75 ml 1X ONCE IV Last administered on 10/17/19at 07:15; Start 10/17/19 at 07:15; Stop 10/17/19 at 07:16; Status DC Iohexol (Omnipaque 240 Mg/ml) 50 ml 1X ONCE PO Last administered on 10/17/19at 07:33; Start 10/17/19 at 07:15; Stop 10/17/19 at 07:16; Status DC Info (CONTRAST GIVEN -- Rx MONITORING) 1 each PRN DAILY PRN MC SEE COMMENTS; Start 10/17/19 at 07:15; Stop 10/19/19 at 07:14; Status DC Tamsulosin HCl (Flomax) 0.4 mg QHS PO Last administered on 10/21/19at 20:58; Start 10/17/19 at 21:00 Tamsulosin HCl (Flomax) 0.4 mg 1X ONCE PO Last administered on 10/17/19at 12:00; Start 10/17/19 at 10:00; Stop 10/17/19 at 10:01; Status DC Ondansetron HCl (Zofran) 4 mg PRN Q6HRS PRN IV NAUSEA/VOMITING; Start 10/19/19 at 07:00; Stop 10/19/19 at 15:38; Status DC Fentanyl Citrate (Fentanyl 2ml Vial) 25 mcg PRN Q5MIN PRN IV MILD PAIN 1-3; Start 10/19/19 at 07:00; Stop 10/19/19 at 15:38; Status DC Fentanyl Citrate (Fentanyl 2ml Vial) 50 mcg PRN Q5MIN PRN IV MODERATE TO SEVERE PAIN; Start 10/19/19 at 07:00; Stop 10/19/19 at 15:38; Status DC Morphine Sulfate (Morphine Sulfate) 1 mg PRN Q10MIN PRN IV SEVERE PAIN 7-10; Start 10/19/19 at 07:00; Stop 10/19/19 at 15:38; Status DC Ringer's Solution 1,000 ml @ 30 mls/hr Q24H IV Last administered on 10/19/19at 13:15; Start 10/19/19 at 07:00; Stop 10/19/19 at 15:38; Status DC Lidocaine HCl (Xylocaine-Mpf 1% 2ml Vial) 2 ml PRN 1X PRN ID PRIOR TO IV START; Start 10/19/19 at 07:00; Stop 10/19/19 at 15:38; Status DC Hydromorphone HCl (Dilaudid) 0.5 mg PRN Q10MIN PRN IV SEV PAIN, Second choice; Start 10/19/19 at 07:00; Stop 10/19/19 at 15:38; Status DC Prochlorperazine Edisylate (Compazine) 5 mg PACU PRN PRN IV NAUSEA, MRX1; Start 10/19/19 at 07:00; Stop 10/19/19 at 15:38; Status DC Heparin Sodium (Porcine) 1000 unit/Sodium Chloride 1,001 ml @ 1,001 mls/hr 1X ONCE IRR Last administered on 10/19/19at 13:59; Start 10/19/19 at 08:50; Stop 10/19/19 at 09:49; Status DC Bupivacaine HCl/ Epinephrine Bitart (Sensorcain-Epi 0.5%-1:[id number] Mpf) 30 ml STK-MED ONCE .ROUTE Last administered on 10/19/19at 13:59; Start 10/19/19 at 11:45; Stop 10/19/19 at 13:31; Status DC Cellulose (Surgicel Hemostat 2x14) 1 each STK-MED ONCE .ROUTE ; Start 10/19/19 at 11:45; Stop 10/19/19 at 13:31; Status DC Iohexol (Omnipaque 300 Mg/ml) 50 ml STK-MED ONCE .ROUTE Last administered on 10/19/19at 13:59; Start 10/19/19 at 11:45; Stop 10/19/19 at 13:31; Status DC Bisacodyl (Dulcolax Supp) 10 mg STK-MED ONCE .ROUTE ; Start 10/19/19 at 11:45; Stop 10/19/19 at 13:31; Status DC Propofol (Diprivan) 200 mg STK-MED ONCE IV ; Start 10/19/19 at 12:28; Stop 10/19/19 at 13:32; Status DC Lidocaine HCl (Lidocaine Pf 2% Vial) 5 ml STK-MED ONCE .ROUTE ; Start 10/19/19 at 12:28; Stop 10/19/19 at 13:32; Status DC Ondansetron HCl (Zofran) 4 mg STK-MED ONCE .ROUTE ; Start 10/19/19 at 12:28; Stop 10/19/19 at 13:32; Status DC Dexamethasone Sodium Phosphate (Decadron) 4 mg STK-MED ONCE .ROUTE ; Start 10/19/19 at 12:28; Stop 10/19/19 at 13:32; Status DC Succinylcholine Chloride (Anectine) 200 mg STK-MED ONCE .ROUTE ; Start 10/19/19 at 12:28; Stop 10/19/19 at 13:32; Status DC Rocuronium Alta (Zemuron) 50 mg STK-MED ONCE .ROUTE ; Start 10/19/19 at 12:28; Stop 10/19/19 at 13:32; Status DC Fentanyl Citrate (Fentanyl 2ml Vial) 100 mcg STK-MED ONCE .ROUTE ; Start 10/19/19 at 12:28; Stop 10/19/19 at 13:32; Status DC Neostigmine Alta (Neostigmine Methylsulfate) 5 mg STK-MED ONCE .ROUTE ; Start 10/19/19 at 14:18; Stop 10/19/19 at 14:18; Status DC Glycopyrrolate (Robinul) 1 mg STK-MED ONCE .ROUTE ; Start 10/19/19 at 14:18; Stop 10/19/19 at 14:18; Status DC Phenylephrine HCl (PHENYLEPHRINE in 0.9% NACL PF) 1 mg STK-MED ONCE IV ; Start 10/19/19 at 14:18; Stop 10/19/19 at 14:18; Status DC Sevoflurane (Ultane) 60 ml STK-MED ONCE IH ; Start 10/19/19 at 14:18; Stop 10/19/19 at 14:18; Status DC Sodium Chloride (Normal Saline Flush) 3 ml QSHIFT PRN IV AFTER MEDS AND BLOOD DRAWS; Start 10/19/19 at 15:30 Ringer's Solution 1,000 ml @ 100 mls/hr Q10H IV Last administered on 10/20/19at 23:36; Start 10/19/19 at 15:20 Dextrose (Dextrose 50%-Water Syringe) 12.5 gm PRN Q15MIN PRN IV SEE COMMENTS; Start 10/19/19 at 15:30 Acetaminophen/ Hydrocodone Bitart (Lortab 5/325) 1 tab PRN Q4HRS PRN PO MILD PAIN 1-3 Last administered on 10/21/19at 12:01; Start 10/19/19 at 15:30 Naloxone HCl (Narcan) 0.4 mg PRN Q2MIN PRN IV SEE INSTRUCTIONS; Start 10/19/19 at 15:30 Sodium Chloride 1,000 ml @ 25 mls/hr Q24H IV ; Start 10/19/19 at 15:20; Stop 10/21/19 at 12:39; Status DC Docusate Sodium (Colace) 100 mg BID PO Last administered on 10/21/19at 20:58; Start 10/19/19 at 20:00 Lactobacillus Rhamnosus (Culturelle) 1 cap BID PO Last administered on 10/22/19at 09:51; Start 10/20/19 at 12:15 Famotidine (Pepcid) 20 mg QHS PO Last administered on 10/21/19at 20:58; Start 10/21/19 at 21:00 Polyethylene Glycol (miraLAX PACKET) 17 gm DAILY PO Last administered on 10/21/19at 11:33; Start 10/21/19 at 11:30 Vital Signs Vital Signs Date Time Temp Pulse Resp B/P (MAP) Pulse Ox O2 Delivery O2 Flow Rate FiO2 10/22/19 11:03 99.0 77 18 138/53 (81) 95 Room Air 99.0 10/22/19 03:00 8.0 Labs Laboratory Tests Test 10/21/19 02:35 White Blood Count 8.7 x10^3/uL (4.0-11.0) Red Blood Count 3.02 x10^6/uL (4.30-5.70) Hemoglobin 10.2 g/dL (13.0-17.5) Hematocrit 29.8 % (39.0-53.0) Mean Corpuscular Volume 99 fL (79-100) Mean Corpuscular Hemoglobin 34 pg (25-35) Mean Corpuscular Hemoglobin Concent 34 g/dL (31-37) Red Cell Distribution Width 13.3 % (11.5-14.5) Platelet Count 205 x10^3/uL (140-400) Neutrophils (%) (Auto) 63 % (31-73) Lymphocytes (%) (Auto) 23 % (24-48) Monocytes (%) (Auto) 13 % (0-9) Eosinophils (%) (Auto) 1 % (0-3) Basophils (%) (Auto) 0 % (0-3) Neutrophils # (Auto) 5.5 x10^3/uL (1.8-7.7) Lymphocytes # (Auto) 2.0 x10^3/uL (1.0-4.8) Monocytes # (Auto) 1.1 x10^3/uL (0.0-1.1) Eosinophils # (Auto) 0.1 x10^3/uL (0.0-0.7) Basophils # (Auto) 0.0 x10^3/uL (0.0-0.2) Sodium Level 136 mmol/L (136-145) Potassium Level 3.1 mmol/L (3.5-5.1) Chloride Level 101 mmol/L (98-107) Carbon Dioxide Level 25 mmol/L (21-32) Anion Gap 10 (6-14) Blood Urea Nitrogen 12 mg/dL (8-26) Creatinine 0.8 mg/dL (0.7-1.3) Estimated GFR (Cockcroft-Gault) 95.0 BUN/Creatinine Ratio 15 (6-20) Glucose Level 70 mg/dL (70-99) Calcium Level 7.3 mg/dL (8.5-10.1) Total Bilirubin 0.5 mg/dL (0.2-1.0) Aspartate Amino Transf (AST/SGOT) 89 U/L (15-37) Alanine Aminotransferase (ALT/SGPT) 137 U/L (16-63) Alkaline Phosphatase 80 U/L (46-116) Total Protein 5.3 g/dL (6.4-8.2) Albumin 1.9 g/dL (3.4-5.0) Albumin/Globulin Ratio 0.6 (1.0-1.7) Allergies Allergies Coded Allergies Type Severity Reaction Last Updated Verified No Known Drug Allergies 10/16/19 No Disposition/Orders: D/C to Home w/ HH Justicifation of Admission Dx: Justifications for Admission: Justification of Admission Dx: Yes MANOJ LARSEN MD Oct 22, 2019 11:40
[2019-10-22] MEDS ORDERED: POLY17PO28 PO (11:43)
[2019-10-22] MEDS ORDERED: AMOX1TAB58 PO (11:43)
[2019-10-22] MEDS ORDERED: TAMS0.4C97 PO (11:43)
[2019-10-22] MEDS ORDERED: FAMO20TA5 PO (11:43)
[2019-10-22] MEDS ORDERED: ACET325T9 PO (11:43)
[2019-10-22] MEDS ORDERED: DOCU-153 PO (11:43)
[2019-10-22] MEDS ORDERED: LACT1CAP19 PO (11:43)
--- NOTE | 2019-10-22 11:45 | SNU/HH DC ---
DISCHARGE WITH HOME HEALTH DISCHARGE INFORMATION: Discharge Date: Oct 22, 2019 Final Diagnosis: Problems Medical Problems: (1) Chest pain Status: Acute (2) Leukocytosis Status: Acute (3) Pancreatitis Status: Acute (4) Serum lipase elevation Status: Acute Condition on Discharge: Stable CODE STATUS: Code Status: Full HOME HEALTH: Face to Face: I certify this patient is under my care and that I, or a nurse practitioner or physician's assistant customer service manager working with me, had a face to face encounter that meets the physician face to face encounter requirements with this patient on []. Medical Complications: Other (ACUTE CHOLECYSTITIS) Long-Term For: Assess & Educate Safety, Medication Management, Pain Management RN For Eval/Treatment: Yes Physical Therapy For: Evalulation/Treatment Occupational Therapy For: Evaluation/Treatment Speech Language Pathology For: Evaluation/Treatment Home Health Aide For: Self-care MANAGER SUPPLY For: Community Resources Pt Meets Homebound Status: Fatigue w/ amb. POST DISCHARGE ORDERS: Activity Instructions for Disc: Activity as tolerated DIET AFTER DISCHARGE: Cardiac CHECKS AFTER DISCHARGE: Checks after discharge: Check blood press - daily FOLLOW-UP: PCP to follow Home Health: 10/23/19 CERTIFICATION STATEMENT: Certification Statement: Certification Statement: Based on the above finding, I certify that this patient is confined to the home and needs intermittent care home care, physical therapy and/or speech therapy, or continues to need occupational therapy.~ This patient is under my care, and I have initiated the establishment of the plan of care.~ This patient will be followed by myself or a community physician who will periodically review the plan of care. Home Meds Active Scripts Amoxicillin/Potassium Clav (AUGMENTIN 500-125 TABLET) 1 Each Tablet, 1 TAB PO BID for INFECTION for 7 Days, #14 TAB 0 Refills Prov:MANOJ LARSEN MD 10/22/19 Lactobacillus Rhamnosus Gg (CULTURELLE) 1 Each Cap.sprink, 1 CAP PO BID for SUPPLEMENT for 30 Days, #60 CAP Prov:MANOJ LARSEN MD 10/22/19 Famotidine (FAMOTIDINE) 20 Mg Tablet, 20 MG PO QHS for GERD for 30 Days, #30 TAB Prov:MANOJ LARSEN MD 10/22/19 Polyethylene Glycol 3350 (POLYETHYLENE GLYCOL 3350) 17 Gm Powd.pack, 17 GM PO DAILY for PREVENT CONSTIPATION for 30 Days, #30 PKT Prov:MANOJ LARSEN MD 10/22/19 Docusate Sodium (DOK) 100 Mg Capsule, 100 MG PO BID for STOOLS for 30 Days, #60 CAP Prov:MANOJ LARSEN MD 10/22/19 Acetaminophen (TYLENOL) 325 Mg Tablet, 650 MG PO PRN Q4HRS PRN for TEMP OVER 100.4F OR MILD PAIN for 30 Days, #60 TAB Prov:MANOJ LARSEN MD 10/22/19 Tamsulosin Hcl (FLOMAX) 0.4 Mg Cap.er.24h, 0.4 MG PO QHS for URINE FLOW for 30 Days, #30 CAP.SR Prov:MANOJ LARSEN MD 10/22/19 MANOJ LARSEN MD Oct 22, 2019 11:45
--- NOTE | 2019-10-22 12:07 | PATHOLOGY ---
[facility] Accession Number: [id number] . 01 Material submitted: . gallbladder - GALLBLADDER AND CONTENTS . 01 Clinician provided ICD-10: [id number] . 01 Clinical history: . Gallstone, pancreatitis . 02 Diagnosis: Gallbladder, excision: - Chronic cholecystitis; negative for malignancy. - Lithiasis. - Cholesterolosis. (MLK:bong; 10/21/2019) QMS 10/21/2019 1515 Local . 02 Electronically signed: . Ronen Quevedo MD, Pathologist NPI- [id number] . 01 Gross description: . The specimen is received in formalin, labeled "Aida, Russ, gallbladder and contents" and an intact green bladder measuring 7.6 x 2.7 x 2.2 cm. The margin is inked. Opening reveals green bile and multiple jagged black calculi measuring up to 0.6 cm in diameter. The mucosa is green and granular with a wall thickness of 0.1 cm. No lymph nodes or gross lesions are identified. Laboratory Aide sections are submitted in A1. (ISREAL; 10/20/2019) JFQ/JFQ 10/20/2019 1731 Local . 02 Pathologist provided ICD-10: K80.10, K82.4 . 02 CPT . 802600 Specimen Comment: A courtesy copy of this report has been sent to [phone] Specimen Comment: [phone], Specimen Comment: Report sent to ,DR CABRERA / DR GRIDER Performed at: [address], [place], [place] [id number] MD Alex Villalba MD Phone: [phone] Performed at: 02 [facility] [address] [place], [place] [id number] MD Robert Teresa MD Phone: [phone]
--- NOTE | 2019-10-22 13:00 | PDOC ---
Subjective: Subjective: Likes the food, just gets full quickly. Feels good to burp. Some abd pain w/ movement. Objective: Objective: Stool charted. Vital Signs: Vital Signs Date Time Temp Pulse Resp B/P (MAP) Pulse Ox O2 Delivery O2 Flow Rate FiO2 10/22/19 11:03 99.0 77 18 138/53 (81) 95 Room Air 99.0 10/22/19 03:00 8.0 Labs: BLOOD CULTURE Final NO GROWTH AFTER 5 DAYS PE: GEN: NAD - lunch tray untouched LUNGS: CTAB HEART: RRR ABD: round, soft, non-tender, quiet BS NEURO/PSYCH: A & O 3 A/P: Pancreatitis s/p cholecystectomy -- DC plans noted. Justicifation of Admission Dx: Justifications for Admission: Justification of Admission Dx: Yes DUYEN NORWOOD Oct 22, 2019 13:00
--- NOTE | 2019-10-22 15:57 | NUR ---
Discharge Note: GRANT JOLLY JUNEAU Discharge instructions and discharge home medications reviewed with Patient and a copy given. All questions have been answered and understanding verbalized. The following instructions and handouts were given: EDUCATION R/T S/S OF INFECTION, HOME MEDICATION LIST, FOLLOW UP INSTRUCTIONS, PAIN MANAGEMENT, INCISION MANAGEMENT. Discontinued lines and drains: L HAND IV DC'ED BY JET CHEN Patient discharged to [facility] PER [facility] WITH WALKER, DC INSTRUCTIONS, BELONGINGS.
== END 2019-10-22 15:00 | disposition home health service (06) | DRG 853 ==
LOC: ER 11:14 → ED HOLD 14:54 → 4 NORTH 15:17 → OBSVTOIN 18:48
PROVIDERS: ADMIT Internal Medicine; ATTEND Internal Medicine
PROC: BF101ZZ Fluoroscopy of Bile Ducts using Low Osmolar Contrast (ICD-10-PCS; 2019-10-19)
PROC: 0FT44ZZ Resection of Gallbladder, Percutaneous Endoscopic Approach (ICD-10-PCS; principal; 2019-10-19 13:00)
DX: A41.9 Sepsis, unspecified organism (principal); K85.10 Biliary acute pancreatitis without necrosis or infection; K81.0 Acute cholecystitis; I69.354 Hemiplegia and hemiparesis following cerebral infarction affecting left non-dominant side; E78.5 Hyperlipidemia, unspecified; K22.9 Disease of esophagus, unspecified; K40.20 Bilateral inguinal hernia, without obstruction or gangrene, not specified as recurrent; K76.0 Fatty (change of) liver, not elsewhere classified; M19.90 Unspecified osteoarthritis, unspecified site; Z66 Do not resuscitate; Z20.828 Contact with and (suspected) exposure to other viral communicable diseases; Z80.0 Family history of malignant neoplasm of digestive organs; F17.210 Nicotine dependence, cigarettes, uncomplicated; Z79.899 Other long term (current) drug therapy
CPT/HCPCS: 36415; 71046; 74177; 74300; 76705; 80053; 80061; 80076; 81001; 82553; 83690; 83735; 83880; 84484; 85007; 85025; 85730; 87040; 88304; 93005; 99285; G0378; G0379; J0330; J1100; J1650; J2370; J2405; J2543; J2704; J2710; J3010; J3475; J3480; J3490; J7120; Q9966; Q9967; 97110-GP; 97116-GP; 97535-GO; U0003-CS